=== PATIENT | female | born 1935 | race Caucasian/White ===

== ENCOUNTER 2017-02-11 15:09 | Observation (INO) ==
[2017-02-11 17:26] LABS: Basophils # 0.1 K/mcL (0.0-0.2); Eosinophils # 0.4 K/mcL (0.0-0.6); Eosinophils % 4.8 %; Hematocrit 26.6 % (35.3-44.9); Immature Granulocytes % 0.4 % (0-4); Immature Platelets 3.8 % (1.1-6.1); Lymphocytes # 2.4 K/mcL (0.6-4.6); Mean Corpuscular HGB Conc 30.1 g/dL (31.6-35.5); Mean Corpuscular Hemoglobin 25.4 pg (28.0-33.3); Mean Corpuscular Volume 84.4 fL (83.0-100.0); Mean Platelet Volume 9.8 fL (9.4-12.4); Monocytes # 0.8 K/mcL (0.0-1.3); Monocytes % 11.2 %; Neutrophils # 3.7 K/mcL (1.6-8.9); Platelet Count 317 K/mcL (140-400); Red Blood Count 3.15 M/mcL (3.82-4.97); Segmented Neutrophils % 50.6 %
[2017-02-11 17:38] LABS: Calcium 9.8 mg/dL (8.6-10.8); Potassium 4.4 mEq/L (3.5-4.5)
--- NOTE | 2017-02-11 17:55 | Emergency Department Note ---
START Narrative - START START: I examined this patient and my medical decision-making was reviewed with the MACHINE WASHER/PA/Advanced Practice Nurse/Resident Physician. I agree with the documented findings, disposition and treatment plan as described except to the extent set forth below. I did see the patient and spoke with her and she is alert and pale in appearance and a repeat CBC is pending. The patient does have dyspnea likely related to her anemia. Also does have a history of breast cancer. Workup in progress. [id number]
--- NOTE | 2017-02-11 19:24 | Emergency Department Note ---
Disposition Clinical Impression: Symptomatic anemia Dyspnea Qualifiers: Dyspnea type: shortness of breath Qualified Code(s): R06.02 - Shortness of breath Disposition: Admitted As Inpatient Condition: Fair Referrals: Beverly Watson MD [Primary Care Provider] - Forms: ED Satisfaction Letter Time of Disposition: 20:52 General Adult HPI - General Chief complaint: ED Shortness of Breath/Dyspnea Stated complaint: Sent Per Dr. Echeverria for Blood Transfusion Time Seen by Provider: 02/11/17 16:24 Source: patient Mode of arrival: ambulatory Limitations: no limitations Nursing Notes Reviewed: Yes Vital Signs Reviewed: Yes - History of Present Illness HPI Narrative: Ms. Montes is an 81 year old female that presents for 2 months of difficulty breathing, initially seen by PCP on 01/25/17 for shortness of breath but did not complete lab work until yesterday. Hgb was found to be low at 7.7 (11.0 approx seven months ago), patient notes PCP, Dr. Echeverria suggested she be seen in the ED for symptomatic anemia and possible blood transfusion. Patient notes approx 4 months of dark stools, noting one episode approx a month ago with bright red blood with stool. She denies any iron supplementation. She notes occasional RUQ pain about 1 weekly that is mild and only last a few minutes when it occurs. She denies any abdominal pain currently, denies any pain with bowel movements. Patient does see pulmonology at [facility] and uses a combination of symbicort and combivent inhaler for history of COPD. Pertinent history of bowel perforation >2 years ago from colonscopy that required two surgeries to repair damage. Pt Subjective Complaint: shortness of breath Onset (ago): month(s) Pain Scale: 0 - Related Data Home Medications Medication Instructions Recorded Confirmed Anastrozole [Arimidex] 1 mg PO DAILY 07/20/16 07/20/16 Budesonide/Formoterol 160/4.5 2 puff IH BIDR 07/20/16 07/20/16 [Symbicort 160/4.5] Denosumab [Prolia (For Outpatient 1 SQ [id number] 07/20/16 Infusion)] Docusate [Colace] 100 mg PO BID PRN 07/20/16 07/20/16 Duloxetine HCl [Cymbalta] 60 mg PO DAILY 07/20/16 07/20/16 Fluticasone Propionate Nasal 2 spr NS DAILY PRN 07/20/16 07/20/16 [Flonase] Ipratropium/Albuterol Sulfate 1 puff IH QID 07/20/16 07/20/16 [Combivent Respimat Inhal [place]] Loratadine [Claritin] 10 mg PO DAILY PRN 07/20/16 07/20/16 Metformin HCl [Glucophage Xr] 500 mg PO BID 07/20/16 07/20/16 Pantoprazole Sodium [Protonix] 40 mg PO DAILY 07/20/16 07/20/16 Ranitidine HCl [Heartburn Relief] 150 mg PO HS 07/20/16 07/20/16 Triamterene/HCTZ 37.5/25mg 0.5 each PO DAILY PRN 07/20/16 07/20/16 [Dyazide] Allergies Allergy/AdvReac Type Severity Reaction Status Date / Time alendronate sodium Allergy See Verified 02/11/17 15:32 [From Fosamax] Comments pregabalin [From Lyrica] Allergy Swelling Verified 02/11/17 15:32 of Lip/Tongue/Throat RISSA Inhibitors AdvReac Cough Verified 02/11/17 15:32 acetaminophen [From Percocet] AdvReac Nausea Verified 02/11/17 15:32 clarithromycin [From Biaxin] AdvReac Nausea Verified 02/11/17 15:32 lisinopril [From Prinivil] AdvReac Nausea Verified 02/11/17 15:32 Oxycodone [From Percocet] AdvReac Nausea Verified 02/11/17 15:32 red wine Allergy Anaphylaxis Uncoded 07/20/16 15:26 All systems ED: reviewed and negative except as stated. Constitutional: Denies: fever, chills Eyes: Denies: vision change ENT ED: Denies: hearing loss Cardiovascular: Denies: chest pain Respiratory: Reports: dyspnea Gastrointestinal: Reports: abdominal pain, melena. Denies: nausea, vomiting, diarrhea Genitourinary: Denies: dysuria Musculoskeletal: Denies: back pain Neurological: Denies: headache, weakness, confusion, vertigo Psychiatric: Denies: anxiety Hematological/Lymphatic: Denies: easy bleeding, easy bruising Past Medical History - Past Medical History Attestation: Yes The following information was validated with the patient. Source: patient, old records reviewed Medical history: Reports: arthritis, cancer, COPD, diabetes, GERD, GI bleed, hyperlipidemia, hypertension, migraine, osteoporosis, renal disease, TIA Surgical history: Reports: orthopedic, other, other (colectomy) Psychiatric history: Reports: depression - Social History Smoking Status: Former smoker Smokeless Tobacco Status: No Alcohol use: Reports: none Drug use: Reports: none Physical Exam - General Limitations: no limitations General appearance: alert, in no apparent distress - Head Head exam: atraumatic, normocephalic - Eye Eye exam: Present: normal appearance, EOMI. Absent: scleral icterus - ENT ENT exam: normal exam, mucous membranes moist - Neck Neck exam: Present: normal inspection, full ROM, trachea midline - Chest Chest inspection: Present: normal inspection, symmetric chest wall rise. Absent : tenderness - Respiratory Respiratory exam: Present: normal lung sounds bilaterally. Absent: respiratory distress, wheezes - Cardiovascular Cardiovascular exam: Present: regular rate, normal rhythm, +S1, +S2 - Abdominal Exam Abdominal exam: Present: soft, Non-Tender. Absent: distention, guarding, rebound, rigidity - Rectal Exam Central Processing Technician present during exam: Yes Rectal exam: Present: normal inspection, normal rectal tone. Absent: black stool, bloody stool, mass, tenderness - Extremities Exam Extremities exam: Present: normal inspection, full ROM. Absent: tenderness, pedal edema - Neurological Exam Neurological exam: Present: alert, oriented X3 - Psychiatric Psychiatric exam: Present: normal affect, normal mood - Skin Skin exam: Present: warm, dry, intact Course - Reevaluation(s) Reevaluation #1: The patient is still symptomatic will type and screen and order one unit of packed red blood cells Time: 20:51 - Consultations Consultation #1: Spoke with Dr. Vazquez, hospitalist who agreed to admission. Time: 20:23 Consultation #2: Spoke to hospitalist again after occult blood found to be negative. Patient seen by Dr. Morfin in past, he was paged and stated he would not be doing endoscopy and if needed that would go to surgery over the weekend. Time: 20:47 Vital Signs Temperature 99.5 F 02/11/17 15:28 Pulse Rate 92 02/11/17 15:28 Respiratory Rate 22 02/11/17 15:28 Blood Pressure 131/74 02/11/17 15:28 O2 Sat by Pulse Oximetry 98 02/11/17 15:28 Temperature 99.5 F 02/11/17 15:28 Pulse Rate 77 02/11/17 20:15 Respiratory Rate 20 02/11/17 20:15 Blood Pressure 135/79 02/11/17 20:15 O2 Sat by Pulse Oximetry 96 02/11/17 20:15 Oxygen Delivery Oxygen Delivery Room Air Medical Decision Making - MDM Narrative Medical decision making narrative: Patient presents with symptomatic anemia for the past 2 months noted hemoglobin at 7.7, which appears to be lower than previous 11.0. Concern for G.I. bleeding with history of dark stools x 4 months. No history of GI bleed, though history of GERD on daily PPI therapy. Plan to discuss case with hospitalist to ensure transfusion and observation. - Medical Records Medical records reviewed: Yes I reviewed the patient's medical records. - Lab Data Lab results reviewed: Yes I reviewed the patient's lab results. Result diagrams: 02/11/17 17:19 02/11/17 17:19 Lab Results 02/11/17 02/11/17 02/11/17 Range/Units 16:47 17:19 17:19 WBC 7.4 (4.3-11.1) K/mcL RBC 3.15 L (3.82-4.97) M/mcL Hgb 8.0 L (11.5-15.4) g/dL Hct 26.6 L (35.3-44.9) % MCV 84.4 (83.0-100.0) fL MCH 25.4 L (28.0-33.3) pg MCHC 30.1 L (31.6-35.5) g/dL RDW 15.0 H (11.5-14.5) % Plt Count 317 (140-400) K/mcL MPV 9.8 (9.4-12.4) fL Immature Gran % 0.4 (0-4) % Seg Neutrophils % 50.6 % Lymphocytes % 32.0 % Monocytes % 11.2 % Eosinophils % 4.8 % Basophils % 1.0 % Neutrophils # 3.7 (1.6-8.9) K/mcL Lymphocytes # 2.4 (0.6-4.6) K/mcL Monocytes # 0.8 (0.0-1.3) K/mcL Eosinophils # 0.4 (0.0-0.6) K/mcL Basophils # 0.1 (0.0-0.2) K/mcL Immature Plt Fraction 3.8 (1.1-6.1) % Sodium 141 (136-145) mEq/L Potassium 4.4 (3.5-4.5) mEq/L Chloride 107 (98-109) mEq/L Carbon Dioxide 20 (19-29) mEq/L BUN 35 H (7-20) mg/dL Creatinine 1.38 H (0.57-1.11) mg/dL Est GFR ( Amer) 45 L (> 60) Est GFR (Non-Af Amer) 37 L (> 60) BUN/Creatinine Ratio 25 (6-26) Glucose 90 (70-99) mg/dL Calculated Osmolality 300 (280-300) Calcium 9.8 (8.6-10.8) mg/dL Troponin I 0.00 (0-0.03) ng/mL Stool Occult Blood (Negative) 02/11/17 Range/Units 19:11 WBC (4.3-11.1) K/mcL RBC (3.82-4.97) M/mcL Hgb (11.5-15.4) g/dL Hct (35.3-44.9) % MCV (83.0-100.0) fL MCH (28.0-33.3) pg MCHC (31.6-35.5) g/dL RDW (11.5-14.5) % Plt Count (140-400) K/mcL MPV (9.4-12.4) fL Immature Gran % (0-4) % Seg Neutrophils % % Lymphocytes % % Monocytes % % Eosinophils % % Basophils % % Neutrophils # (1.6-8.9) K/mcL Lymphocytes # (0.6-4.6) K/mcL Monocytes # (0.0-1.3) K/mcL Eosinophils # (0.0-0.6) K/mcL Basophils # (0.0-0.2) K/mcL Immature Plt Fraction (1.1-6.1) % Sodium (136-145) mEq/L Potassium (3.5-4.5) mEq/L Chloride (98-109) mEq/L Carbon Dioxide (19-29) mEq/L BUN (7-20) mg/dL Creatinine (0.57-1.11) mg/dL Est GFR ( Amer) (> 60) Est GFR (Non-Af Amer) (> 60) BUN/Creatinine Ratio (6-26) Glucose (70-99) mg/dL Calculated Osmolality (280-300) Calcium (8.6-10.8) mg/dL Troponin I (0-0.03) ng/mL Stool Occult Blood Negative (Negative)
[2017-02-11] MEDS ORDERED: Naloxone 0.4 MG/ML INJ IVP PRN (21:41)
[2017-02-11] MEDS ORDERED: Loratadine 10 MG TABLET PO PRN (21:46)
[2017-02-11] MEDS ORDERED: Fluticasone Propionate Nasal 50 MCG/SPRAY BOTTLE NS PRN (22:20)
--- NOTE | 2017-02-11 22:30 | Internal Med History&Physical ---
Date of Encounter: 02/11/17 Time of Encounter: 22:24 Assessment and Plan (1) Symptomatic anemia Current visit: Yes Status: Acute Patient with shortness of breath, Hgb 7.7 and 8.0 on recheck. Patient reports "dark stools". Fecal occult blood negative. She does report significant acid reflux, but denies any hemetamasis, vomiting. She has a history of bowel perforation during colonoscopy requiring surgical repair x 2. Iron studies, B12 and folate. Will transfuse 2 units of blood. check H/H Q 6 hours. Recheck CBC in the morning. Consult to Surgery covering endoscopy for possible endoscopy. (2) COPD (chronic obstructive pulmonary disease) Current visit: Yes Status: Acute Patient has COPD and follows with [facility] pulmonology. Continue home doses of albuterol, atrovent, symbicort and spiriva. CPAP overnight. Qualifiers: COPD type: unspecified COPD Qualified Code(s): J44.9 - Chronic obstructive pulmonary disease, unspecified (3) Dyspnea Current visit: Yes Status: Acute Patient reports shortness of breath for the last 2 months. She does have COPD, but does not report increased coughing or sputum production. Hgb found to be 7.7, and anemia thought to be source of dyspnea. Will transfuse and assess for improvement in her symptoms. Qualifiers: Dyspnea type: shortness of breath Qualified Code(s): R06.02 - Shortness of breath (4) Type 2 diabetes mellitus Current visit: Yes Status: Acute diabetic diet hold home metformin check blood sugars ACHS sliding scale insulin ACHS hypoglycemic protocol. Qualifiers: Diabetes mellitus complication status: without complication Diabetes mellitus creative guru insulin use: without creative guru use Qualified Code(s): E11.9 - Type 2 diabetes mellitus without complications (5) DVT prophylaxis Current visit: Yes Status: Acute ambulate with assistance anti-embolic stockings pharmacologic prophylaxis is contraindicated in patient with possible bleed. Internal Medicine - H&P: HPI Chief complaint: shortness of breath, low blood count Admitted From: Emergency Dept Plans for Post Hospital Care: Home History of present illness: Ms. Montes is a 81 year old female with hypertension, hyperlipidemia, type 2 diabetes, COPD, chronic kidney disease, history of TIA, history of breast cancer , history of bowel perforation status post repair who was sent to the emergency department today by her primary care physician after lab results revealed her hemoglobin was 7.7. Patient had been complaining of shortness of breath for the last 2 months, PCP ordered labs as part of the workup. Patient reports her shortness of breath continues, worse with activity. She reports she has had dark stools, but denies sticky stools, magalis blood, and she says that they are not black just dark. She denies any other sources of bleeding recently, denies any bloody emesis. She reports acid reflux, denies any lightheadedness, palpitations, abdominal pain, diarrhea. She reports she received 2 units of blood last fall, however I cannot find any record of that in the outpatient system. Evaluation in the emergency department included hemoglobin of 8.0. Fecal occult blood was negative. Her creatinine of 1.38, consistent with her baseline CKD. On exam, patient is alert and oriented, in no acute distress. Lungs are clear bilaterally to auscultation, heart has regular rate and rhythm. Past Med Surg Social Fam HX - Past Medical History Medical history: arthritis, cancer, COPD, diabetes, GERD, GI bleed, hyperlipidemia, hypertension, migraine, osteoporosis, renal disease, TIA Psychiatric history: depression - Past Surgical History Surgical History: breast surgery, cancer surgery, colectomy (bowel repair x 2 after bowel perforation during colonoscopy), knee replacement, orthopedic, other , other (colectomy) - Social History Smoking Status: Former smoker Smokeless Tobacco Status: No Alcohol use: none Drug use: none - Family History Mother Adopted: No Family Member Ethnicity: Non- Living Status: Hx Family Cardiac Disorders: No Hx Family Respiratory Disorders: No Hx Family Cancer: No Hx Family GI Disorders: No Hx Family Endocrine Disorder: Yes (DM) Hx Family Neuromuscular Disorders: No Hx Family Neurologic Disorders: No Hx Family HEENT Disorders: No Hx Family Autoimmune Disorders: No Father Living Status: Age at : 65 Cause of : alcoholism Internal Medicine - H&P: Meds Anastrozole [Arimidex] 1 mg PO DAILY 07/20/16 [History] Budesonide/Formoterol 160/4.5 [Symbicort 160/4.5] 2 puff IH BIDR 07/20/16 [ History] Denosumab [Prolia (For Outpatient Infusion)] 60 mg SQ [id number] 07/20/16 [History ] Docusate [Colace] 100 mg PO BID PRN 07/20/16 [History] Duloxetine HCl [Cymbalta] 60 mg PO DAILY 07/20/16 [History] Fluticasone Propionate Nasal [Flonase] 2 spr NS DAILY PRN 07/20/16 [History] Ipratropium/Albuterol Sulfate [Combivent Respimat Inhal [place]] 1 puff IH QID [History] Loratadine [Claritin] 10 mg PO DAILY PRN 07/20/16 [History] Metformin HCl [Glucophage Xr] 750 mg PO TID 07/20/16 [History] Pantoprazole Sodium [Protonix] 40 mg PO DAILY 07/20/16 [History] Ranitidine HCl [Heartburn Relief] 150 mg PO HS 07/20/16 [History] Triamterene/HCTZ 37.5/25mg [Dyazide] 0.5 each PO DAILY PRN 07/20/16 [History] Albuterol Sulfate [Proair Hfa] 2 puff IH Q4H PRN 02/11/17 [History] Rosuvastatin [Crestor] 40 mg PO HS 02/11/17 [History] Tiotropium [place] Burn [Spiriva Respimat] 1 puff IH DAILY 02/11/17 [History] Allergies alendronate sodium [From Fosamax] Allergy (Verified 02/11/17 15:32) See Comments pregabalin [From Lyrica] Allergy (Verified 02/11/17 15:32) Swelling of Lip/Tongue/Throat RISSA Inhibitors Adverse Reaction (Verified 02/11/17 15:32) Cough acetaminophen [From Percocet] Adverse Reaction (Verified 02/11/17 15:32) Nausea clarithromycin [From Biaxin] Adverse Reaction (Verified 02/11/17 15:32) Nausea lisinopril [From Prinivil] Adverse Reaction (Verified 02/11/17 15:32) Nausea Oxycodone [From Percocet] Adverse Reaction (Verified 02/11/17 15:32) Nausea red wine Allergy (Uncoded 07/20/16 15:26) Anaphylaxis All Systems PM: A 10-system review of systems was performed and is negative for pertinent findings except as documented above in the HPI. - Constitutional Constitutional: no chills, no fever(s), no night sweats - EENT Eyes: no change in vision, no discharge, no pain, no photophobia Ears: no ear discharge, no ear pain, no tinnitus Nose, mouth and throat: no dysphagia, no nasal discharge, no neck pain, no sore throat - Cardiovascular Cardiovascular ROS IM: dyspnea, dyspnea on exertion, no chest pain, no diaphoresis, no lightheadedness, no palpitations, no syncope - Respiratory Respiratory: dyspnea, dyspnea on exertion, no cough, no wheezing, no excessive phlegm production - Gastrointestinal Gastrointestinal: no abdominal pain, no diarrhea, no hematemesis, no hematochezia, no melena, no nausea, no vomiting Additional comments: "dark stools" - Genitourinary Genitourinary: no change in urinary stream, no dysuria, no flank pain, no hematuria - Musculoskeletal Musculoskeletal ROS IM: no numbness, no tingling - Integumentary Integumentary IM: no rash, no unusual bruising - Neurological Neurological ROS: no confusion, no convulsions, no focal weakness, no numbness, no tingling, no tremor(s) - Hematologic/Lymphatic Hematologic/Lymphatic: no easy bruising - Constitutional Vitals: Temp Pulse Resp BP Pulse Ox 99.5 F 96 20 123/86 97 02/11/17 15:28 02/11/17 21:00 02/11/17 21:26 02/11/17 21:26 02/11/17 21:00 General appearance: Present: A&O X 3, pleasant, no acute distress - Head Head exam: Present: atraumatic, normocephalic - Eye Eye exam: Present: PERRL, conjuntiva pink, sclera anicteric Pupils: Present: PERRL - Neck Neck exam general surgery: Present: supple, trachea midline. Absent: lymphadenopathy - Respiratory Respiratory exam: Present: CTAB. Absent: accessory muscle use, rales, rhonchi, wheezes - Cardiovascular Cardiovascular exam: Present: RRR, +S1, +S2. Absent: diastolic murmur, gallop, rubs, systolic murmur - GI/Abdominal GI/Abdominal exam: Present: normal bowel sounds, soft, no peritoneal signs. Absent: distended, tenderness - Extremities Exam Extremities exam: Present: warm, radial pulses palpable and symetrical. Absent : calf tenderness, cyanotic, pedal edema - Neurological Exam Neurological exam: Present: CN II-XII intact, oriented X3, no focal deficits. Absent: facial droop, speech deficit - Skin Skin exam: Present: dry, intact Internal Med - H&P Results - Labs CBC & Chem 7: 02/11/17 17:19 02/11/17 17:19 Labs: All Lab Results (24 Hours) 02/11/17 02/11/17 02/11/17 Range/Units 16:47 17:19 17:19 WBC 7.4 (4.3-11.1) K/mcL RBC 3.15 L (3.82-4.97) M/mcL Hgb 8.0 L (11.5-15.4) g/dL Hct 26.6 L (35.3-44.9) % MCV 84.4 (83.0-100.0) fL MCH 25.4 L (28.0-33.3) pg MCHC 30.1 L (31.6-35.5) g/dL RDW 15.0 H (11.5-14.5) % Plt Count 317 (140-400) K/mcL MPV 9.8 (9.4-12.4) fL Immature Gran % 0.4 (0-4) % Seg Neutrophils % 50.6 % Lymphocytes % 32.0 % Monocytes % 11.2 % Eosinophils % 4.8 % Basophils % 1.0 % Neutrophils # 3.7 (1.6-8.9) K/mcL Lymphocytes # 2.4 (0.6-4.6) K/mcL Monocytes # 0.8 (0.0-1.3) K/mcL Eosinophils # 0.4 (0.0-0.6) K/mcL Basophils # 0.1 (0.0-0.2) K/mcL Immature Plt Fraction 3.8 (1.1-6.1) % Sodium 141 (136-145) mEq/L Potassium 4.4 (3.5-4.5) mEq/L Chloride 107 (98-109) mEq/L Carbon Dioxide 20 (19-29) mEq/L BUN 35 H (7-20) mg/dL Creatinine 1.38 H (0.57-1.11) mg/dL Est GFR ( Amer) 45 L (> 60) Est GFR (Non-Af Amer) 37 L (> 60) BUN/Creatinine Ratio 25 (6-26) Glucose 90 (70-99) mg/dL Calculated Osmolality 300 (280-300) Calcium 9.8 (8.6-10.8) mg/dL Troponin I 0.00 (0-0.03) ng/mL Stool Occult Blood (Negative) Blood Type Antibody Screen Crossmatch 02/11/17 02/11/17 Range/Units 19:11 21:07 WBC (4.3-11.1) K/mcL RBC (3.82-4.97) M/mcL Hgb (11.5-15.4) g/dL Hct (35.3-44.9) % MCV (83.0-100.0) fL MCH (28.0-33.3) pg MCHC (31.6-35.5) g/dL RDW (11.5-14.5) % Plt Count (140-400) K/mcL MPV (9.4-12.4) fL Immature Gran % (0-4) % Seg Neutrophils % % Lymphocytes % % Monocytes % % Eosinophils % % Basophils % % Neutrophils # (1.6-8.9) K/mcL Lymphocytes # (0.6-4.6) K/mcL Monocytes # (0.0-1.3) K/mcL Eosinophils # (0.0-0.6) K/mcL Basophils # (0.0-0.2) K/mcL Immature Plt Fraction (1.1-6.1) % Sodium (136-145) mEq/L Potassium (3.5-4.5) mEq/L Chloride (98-109) mEq/L Carbon Dioxide (19-29) mEq/L BUN (7-20) mg/dL Creatinine (0.57-1.11) mg/dL Est GFR ( Amer) (> 60) Est GFR (Non-Af Amer) (> 60) BUN/Creatinine Ratio (6-26) Glucose (70-99) mg/dL Calculated Osmolality (280-300) Calcium (8.6-10.8) mg/dL Troponin I (0-0.03) ng/mL Stool Occult Blood Negative (Negative) Blood Type A POSITIVE Antibody Screen NEGATIVE Crossmatch See Detail
[2017-02-11] MEDS ORDERED: D5% in Water 1,000 ML IVC PRN (22:37)
[2017-02-11] MEDS ORDERED: Dextrose Gel 15 GM PO PRN ×2 (22:37)
[2017-02-11] MEDS ORDERED: *HR* Dextrose 50 % in Water (Syg) 50 ML SYRINGE IVP PRN (22:37)
[2017-02-11] MEDS: Budesonide/Formoterol 160/4.5 MDI IH SCH (22:38)
[2017-02-11] MEDS: Ipratropium 1 PUFF INHALER IH SCH (22:39)
[2017-02-11 23:15] LABS: % Iron Saturation 5 % (15-50); Iron 25 mcg/dL (50-170); Transferrin 337 mg/dL (180-382)
[2017-02-11] MEDS: Insulin LISPRO 300 UNITS/3 ML VIAL SQ SCH (23:26)
[2017-02-12 00:10] LABS: Folate 14.3 ng/mL (7.0-31.4)
[2017-02-12] MEDS ORDERED: 0.9 % Sodium Chloride 250 ML ONE ×2 (00:23→03:14)
[2017-02-12 01:11] LABS: Basophils # 0.1 K/mcL (0.0-0.2); Basophils % 0.7 %; Eosinophils # 0.3 K/mcL (0.0-0.6); Eosinophils % 3.7 %; Hematocrit 25.2 % (35.3-44.9); Hemoglobin 7.5 g/dL (11.5-15.4); Immature Granulocytes % 0.4 % (0-4); Lymphocytes # 2.9 K/mcL (0.6-4.6); Lymphocytes % 33.8 %; Mean Corpuscular HGB Conc 29.8 g/dL (31.6-35.5); Mean Corpuscular Hemoglobin 25.3 pg (28.0-33.3); Mean Corpuscular Volume 85.1 fL (83.0-100.0); Mean Platelet Volume 9.3 fL (9.4-12.4); Monocytes % 11.8 %; Neutrophils # 4.2 K/mcL (1.6-8.9); Platelet Count 357 K/mcL (140-400); Red Blood Count 2.96 M/mcL (3.82-4.97); Red Cell Distribution Width 14.8 % (11.5-14.5); Segmented Neutrophils % 49.6 %
[2017-02-12 01:25] LABS: Calcium 9.5 mg/dL (8.6-10.8); Potassium 4.7 mEq/L (3.5-4.5)
[2017-02-12] MEDS: Ipratropium 1 PUFF INHALER IH SCH ×4 (03:42→22:35)
[2017-02-12 06:11] LABS: Hematocrit 28.5 % (35.3-44.9)
[2017-02-12 06:12] LABS: Hemoglobin 9.1 g/dL (11.5-15.4)
[2017-02-12] MEDS: Pantoprazole 40 MG VIAL IVP SCH ×2 (06:42→17:52)
[2017-02-12] MEDS: Insulin LISPRO 300 UNITS/3 ML VIAL SQ SCH ×4 (08:44→20:39)
[2017-02-12] MEDS ORDERED: NON-FORMULARY MEDICATION 1 EACH EACH (Ipratropium/Albuterol Sulfate [Combivent Respimat In IH SCH (09:00)
[2017-02-12] MEDS: Budesonide/Formoterol 160/4.5 MDI IH SCH ×2 (11:52→20:47)
[2017-02-12] MEDS: Tiotropium 18 MCG inhalation IH SCH (12:01)
[2017-02-12 12:35] LABS: Hematocrit 30.7 % (35.3-44.9); Hemoglobin 9.6 g/dL (11.5-15.4)
--- NOTE | 2017-02-12 12:40 | General Surgery Consult Note ---
Date of Encounter: 02/12/17 Time of Encounter: 09:00 Assessment and Plan (1) Symptomatic anemia Current Visit: Yes Status: Acute will plan EGD with iv medication, risks and benefits discussed with patient and she wishes to proceed will trend Hb (2) COPD (chronic obstructive pulmonary disease) Current Visit: Yes Status: Acute management per hospitalist Qualifiers: COPD type: unspecified COPD Qualified Code(s): J44.9 - Chronic obstructive pulmonary disease, unspecified (3) Type 2 diabetes mellitus Current Visit: Yes Status: Acute management per hospitalist Qualifiers: Diabetes mellitus complication status: without complication Diabetes mellitus buttermaker continuous churn insulin use: without nursing home use Qualified Code(s): E11.9 - Type 2 diabetes mellitus without complications (4) DVT prophylaxis Current Visit: Yes Status: Acute ambulation and EPCDs History of Present Illness Consult date: 02/12/17 Reason for consult: endoscopy History of present illness: Patient is an 81 yr old female who presented to hospital with anemia. She states she talked to her PCP and complained of lethargy and SOB for many months. She had lab work done showing a low Hb and was told to come to the hospital. She has received 2 units PRBC and she states its too early to tell if its making her feel better. She denies chest pain, palpitations or dizziness. She complains of heartburn and reflux symptoms for years. She states she takes two medications for that - ranitidine and something else. It does help her symptoms a little but she still has breakthrough reflux that wakes her at night. She sleeps with the head of her bed elevated 6 inches. She doesnt eat after 6 pm to try to help alleviate symptoms. When she has reflux the pain seems to radiate through her chest. She has been passing dark stools for a few months now but she is also drinking peptobismol to help with her symptoms and has for months. She denies epigastric pain or nausea. Past Med Surg Social Fam HX - Past Medical History Source: patient Medical history: arthritis, cancer, COPD, diabetes, GERD, GI bleed, hyperlipidemia, hypertension, migraine, osteoporosis, renal disease, TIA Psychiatric history: depression - Past Surgical History Surgical History: breast surgery, cancer surgery, colectomy, knee replacement, orthopedic, other, other - Social History Smoking Status: Former smoker Smokeless Tobacco Status: No Alcohol use: none Drug use: none - Family History Father Living Status: Age at : 65 Cause of : alcoholism Hx Family Respiratory Disorders: Yes Hx Family Cancer: No Hx Family Psychosocial Disorders: Yes Hx Family Medical Disorders: Yes Mother Adopted: No Family Member Ethnicity: Non- Living Status: Hx Family Cardiac Disorders: No Hx Family Respiratory Disorders: No Hx Family Cancer: No Hx Family GI Disorders: No Hx Family Endocrine Disorder: Yes (DM) Hx Family Neuromuscular Disorders: No Hx Family Neurologic Disorders: No Hx Family HEENT Disorders: No Hx Family Autoimmune Disorders: No Medications and Allergies Anastrozole [Arimidex] 1 mg PO DAILY 07/20/16 [History] Budesonide/Formoterol 160/4.5 [Symbicort 160/4.5] 2 puff IH BIDR 07/20/16 [ History] Denosumab [Prolia (For Outpatient Infusion)] 60 mg SQ [id number] 07/20/16 [History ] Docusate [Colace] 100 mg PO BID PRN 07/20/16 [History] Duloxetine HCl [Cymbalta] 60 mg PO DAILY 07/20/16 [History] Fluticasone Propionate Nasal [Flonase] 2 spr NS DAILY PRN 07/20/16 [History] Ipratropium/Albuterol Sulfate [Combivent Respimat Inhal [place]] 1 puff IH QID [History] Loratadine [Claritin] 10 mg PO DAILY PRN 07/20/16 [History] Metformin HCl [Glucophage Xr] 750 mg PO TID 07/20/16 [History] Pantoprazole Sodium [Protonix] 40 mg PO DAILY 07/20/16 [History] Ranitidine HCl [Heartburn Relief] 150 mg PO HS 07/20/16 [History] Triamterene/HCTZ 37.5/25mg [Dyazide] 0.5 each PO DAILY PRN 07/20/16 [History] Albuterol Sulfate [Proair Hfa] 2 puff IH Q4H PRN 02/11/17 [History] Rosuvastatin [Crestor] 40 mg PO HS 02/11/17 [History] Tiotropium [place] [Spiriva Respimat] 1 puff IH DAILY 02/11/17 [History] Allergies alendronate sodium [From Fosamax] Allergy (Verified 02/11/17 15:32) See Comments pregabalin [From Lyrica] Allergy (Verified 02/11/17 15:32) Swelling of Lip/Tongue/Throat RISSA Inhibitors Adverse Reaction (Verified 02/11/17 15:32) Cough acetaminophen [From Percocet] Adverse Reaction (Verified 02/11/17 15:32) Nausea clarithromycin [From Biaxin] Adverse Reaction (Verified 02/11/17 15:32) Nausea lisinopril [From Prinivil] Adverse Reaction (Verified 02/11/17 15:32) Nausea Oxycodone [From Percocet] Adverse Reaction (Verified 02/11/17 15:32) Nausea red wine Allergy (Uncoded 07/20/16 15:26) Anaphylaxis Review of Systems All systems PM: reviewed and no additional remarkable complaints except as stated All systems PM: A 10-system review of systems was performed and is negative for pertinent findings except as documented above in the HPI. General Surgery Exam Initial Vital Signs Temp Pulse Resp BP Pulse Ox 99.5 F 92 22 131/74 98 02/11/17 15:28 02/11/17 15:28 02/11/17 15:28 02/11/17 15:28 02/11/17 15:28 - General physical appearance well developed, well nourished, no distress, no pain - Eyes PERRL, normal ocular movement - ENT normal mucosa, atraumatic, normocephalic - Neck trachea midline - Respiratory normal expansion, clear to auscultation - Cardiovascular Cardiovascular exam: Present: RRR - Abdomen Abdomen general surgery: Present: bowel sounds present, soft, non tender. Absent: distended - Integumentary Integumentary general surgery: Present: warm and dry, no abnormal pigmentation. Absent: diaphoresis - Neurologic Present: CN 2-12 grossly intact - Musculoskeletal Present: normal gait, normal posture - Psychiatric Psychiatric general surgery: Present: A&Ox3, speech is normal Exam Initial Vital Signs Temp Pulse Resp BP Pulse Ox 99.5 F 92 22 131/74 98 02/11/17 15:28 02/11/17 15:28 02/11/17 15:28 02/11/17 15:28 02/11/17 15:28 Results - Labs 02/12/17 05:58 02/12/17 00:40 Short CBC 02/12/17 02/12/17 02/12/17 Range/Units 11:47 05:58 00:40 WBC 8.5 (4.3-11.1) K/mcL Hgb 9.6 L 9.1 L D 7.5 L (11.5-15.4) g/dL Hct 30.7 L 28.5 L 25.2 L (35.3-44.9) % Plt Count 357 (140-400) K/mcL Neutrophils # 4.2 (1.6-8.9) K/mcL 02/11/17 Range/Units 17:19 WBC 7.4 (4.3-11.1) K/mcL Hgb 8.0 L (11.5-15.4) g/dL Hct 26.6 L (35.3-44.9) % Plt Count 317 (140-400) K/mcL Neutrophils # 3.7 (1.6-8.9) K/mcL BMP 02/12/17 02/11/17 Range/Units 00:40 17:19 Sodium 141 141 (136-145) mEq/L Potassium 4.7 H 4.4 (3.5-4.5) mEq/L Chloride 107 107 (98-109) mEq/L Carbon Dioxide 19 20 (19-29) mEq/L BUN 36 H 35 H (7-20) mg/dL Creatinine 1.53 H 1.38 H (0.57-1.11) mg/dL Glucose 209 H 90 (70-99) mg/dL Calcium 9.5 9.8 (8.6-10.8) mg/dL Cardiac Enzymes 02/11/17 Range/Units 16:47 Troponin I 0.00 (0-0.03) ng/mL Vital Signs Temp Pulse Resp BP Pulse Ox 02/12/17 11:52 16 129/76 97 02/12/17 10:07 98.2 F 78 16 129/76 98 02/12/17 08:10 98 02/12/17 06:23 97.8 F 73 16 126/73 98 02/12/17 03:43 97.5 F L 77 18 127/77 96 02/12/17 03:28 98.3 F 78 18 135/78 96 02/12/17 03:26 97.7 F 81 14 120/76 95 02/12/17 00:50 97.9 F 79 12 132/76 96 02/12/17 00:45 97.7 F 81 14 120/76 95 02/12/17 00:27 98.2 F 82 20 112/63 98 02/11/17 22:52 98.4 F 88 16 126/83 98 02/11/17 22:38 16 97 02/11/17 21:26 20 123/86 02/11/17 21:00 96 20 97 02/11/17 20:45 93 20 154/98 97 02/11/17 20:30 87 20 147/73 94 02/11/17 20:15 77 20 135/79 96 02/11/17 20:00 78 20 133/75 95 02/11/17 19:46 95 02/11/17 19:45 81 20 119/73 95 02/11/17 19:30 87 20 143/76 95 02/11/17 19:15 82 20 144/86 95 02/11/17 19:00 77 20 127/75 95 02/11/17 15:28 99.5 F 92 22 131/74 98 Intake and Output 02/11/17 02/12/17 02/12/17 23:59 07:59 15:59 Intake Total 600 / 600 0 / 0 Output Total 0 / 0 Balance 600 / 600 0 / 0 Intake: Oral 0 / 0 Blood Product 600 / 600 Rbcs Leuko Poor As-1 300 / 300 Unit [id number] Rbcs Leuko Poor As-1 300 / 300 Unit [id number] Output: Urine 0 / 0 Other: # Voids 1 Blood Glucose* 198 101 108 Consult Discharge Plan - Plan Referrals: Beverly Watson MD [Primary Care Provider] -
[2017-02-12] MEDS ORDERED: *HR* Midazolam HCl 5 MG/5 ML VIAL IVP ONE (15:57)
[2017-02-12] MEDS ORDERED: *HR* FentaNYL (PF) 100 MCG/2 ML VIAL ONE (15:58)
[2017-02-12] MEDS ORDERED: *HR* Promethazine 25 MG/ML VIAL ONE (15:59)
[2017-02-12] MEDS ORDERED: Acetaminophen 325 MG TABLET PO PRN (16:32)
[2017-02-12] MEDS ORDERED: Tetracaine/Benzocaine/Butamben 200MG/SPRAY (100SPY/BOT) MM ONE (16:33)
[2017-02-12] MEDS ORDERED: *HR* FentaNYL (PF) 100 MCG/2 ML VIAL IVP PRN (16:33)
[2017-02-12] MEDS ORDERED: Simethicone 40 MG/0.6 ML MLS IR ONE (16:33)
[2017-02-12] MEDS ORDERED: *HR* Midazolam HCl 5 MG/5 ML VIAL IVP PRN (16:33)
[2017-02-12] MEDS ORDERED: 0.9 % Sodium Chloride 1,000 ML IVC SCH (16:45)
[2017-02-12] MEDS: Sucralfate 1 GM TABLET PO SCH ×2 (18:25→20:39)
--- NOTE | 2017-02-12 18:27 | Internal Med Progress Note ---
Date of Encounter: 02/12/17 Time of Encounter: 10:00 - Assessment and plan (1) Iron deficiency anemia Current Visit: Yes Status: Acute Assessment and plan: Iron studies reveal low iron and percent saturation consistent with iron deficiency anemia. I suspect occult GI bleeding. The patient is nothing by mouth. I discussed the patient's case with surgeon and will proceed with upper endoscopy to evaluate for esophageal pathology versus gastric ulcer, gastric Cancer or bleeding duodenal ulcer. Qualifiers: Iron deficiency anemia type: chronic blood loss Qualified Code(s): D50.0 - Iron deficiency anemia secondary to blood loss (chronic) (2) COPD (chronic obstructive pulmonary disease) Current Visit: Yes Status: Acute Assessment and plan: No evidence of exacerbation. We will use inhaled bronchodilators. Qualifiers: COPD type: unspecified COPD Qualified Code(s): J44.9 - Chronic obstructive pulmonary disease, unspecified (3) Type 2 diabetes mellitus Current Visit: Yes Status: Acute Assessment and plan: Stop oral antidiabetic medication. Start insulin sliding scale. Qualifiers: Diabetes mellitus complication status: without complication Diabetes mellitus group home insulin use: without group home use Qualified Code(s): E11.9 - Type 2 diabetes mellitus without complications (4) DVT prophylaxis Current Visit: Yes Status: Acute - Subjective Interval history: Patient reports that she has had generalized weakness and fatigue for the last 2 weeks. She was found to have a hemoglobin of 7.5 in the office and was sent to the hospital. She was given 2 units PRBC transfusion. Currently her weakness has improved, she denies chest pain shortness of breath but has not been exerting herself. - Constitutional Vitals: Temp Pulse Resp BP Pulse Ox 98.5 F 79 18 167/81 100 02/12/17 16:06 02/12/17 16:47 02/12/17 16:47 02/12/17 16:47 02/12/17 16:47 General appearance: Present: A&O X 3, pleasant, no acute distress - Eye Eye exam: Present: PERRL, conjuntiva pink, sclera anicteric Pupils: Present: PERRL - Respiratory Respiratory exam: Present: CTAB. Absent: accessory muscle use, rales, rhonchi, wheezes - Cardiovascular Cardiovascular exam: Present: RRR, +S1, +S2. Absent: diastolic murmur, gallop, rubs, systolic murmur - GI/Abdominal GI/Abdominal exam: Present: normal bowel sounds, soft, no peritoneal signs. Absent: distended, tenderness - Extremities Exam Extremities exam: Present: warm, radial pulses palpable and symetrical. Absent : calf tenderness, cyanotic, pedal edema - Neurological Exam Neurological exam: Present: CN II-XII intact, oriented X3, no focal deficits. Absent: pronater drift, facial droop, speech deficit Internal Medicine: Result - Labs CBC & Chem 7: 02/12/17 11:47 02/12/17 00:40 Labs: Short CBC 02/12/17 02/12/17 02/12/17 Range/Units 00:40 05:58 11:47 WBC 8.5 (4.3-11.1) K/mcL Hgb 7.5 L 9.1 L D 9.6 L (11.5-15.4) g/dL Hct 25.2 L 28.5 L 30.7 L (35.3-44.9) % Plt Count 357 (140-400) K/mcL Neutrophils # 4.2 (1.6-8.9) K/mcL BMP 02/12/17 00:40 Sodium 141 Potassium 4.7 H Chloride 107 Carbon Dioxide 19 BUN 36 H Creatinine 1.53 H Glucose 209 H Calcium 9.5 Consult Discharge Plan - Plan Referrals: Beverly Watson MD [Primary Care Provider] -
[2017-02-13] MEDS: Ipratropium 1 PUFF INHALER IH SCH ×2 (04:02→10:56)
[2017-02-13] MEDS: Pantoprazole 40 MG VIAL IVP SCH (05:45)
[2017-02-13] MEDS: Insulin LISPRO 300 UNITS/3 ML VIAL SQ SCH ×2 (08:00→12:04)
[2017-02-13] MEDS: Sucralfate 1 GM TABLET PO SCH ×2 (08:03→12:04)
--- NOTE | 2017-02-13 09:58 | General Surgery Progress Note ---
Date of Encounter: 02/13/17 Time of Encounter: 09:56 - Assessment and Plan (1) Hiatal hernia Current Visit: Yes Status: Chronic Recommend outpatient manometry study- patient will be set up for testing by the surgical office F/U with either Dr. Colorado to discuss Truong Fundoplication PPI therapy Carafate QID Surgery will sign off. Thank you for allowing us to partcipate in the care of this patient. Please call with any further questions/concerns. (2) GERD (gastroesophageal reflux disease) Current Visit: Yes Status: Chronic F/U with either Dr. Colorado to discuss Truong Fundoplication PPI therapy Carafate QID Qualifiers: Esophagitis presence: with esophagitis Qualified Code(s): K21.0 - Gastro- esophageal reflux disease with esophagitis (3) Symptomatic anemia Current Visit: Yes Status: Acute Hgb stable at 9.6 total of 2 units PRBC transfused Repeat am labs (4) COPD (chronic obstructive pulmonary disease) Current Visit: Yes Status: Chronic Qualifiers: COPD type: unspecified COPD Qualified Code(s): J44.9 - Chronic obstructive pulmonary disease, unspecified (5) Type 2 diabetes mellitus Current Visit: Yes Status: Chronic Blood sugars stable Management per medicine service Qualifiers: Diabetes mellitus complication status: without complication Diabetes mellitus intermediate project manager insulin use: without intermediate project manager use Qualified Code(s): E11.9 - Type 2 diabetes mellitus without complications (6) Chronic kidney disease (CKD) Current Visit: Yes Status: Acute Stable- levels at baseline Avoid nephrotoxic medications Management per medicine service Qualifiers: Chronic kidney disease stage: stage 3 (moderate) Qualified Code(s): N18.3 - Chronic kidney disease, stage 3 (moderate) Subjective Patient reports: no new complaints, feels better, tolerating a regular diet, afebrile Objective Vital Signs - Last 8 Hours Temp Pulse Resp BP Pulse Ox 02/13/17 07:16 98.1 F 97 16 129/86 95 02/13/17 04:59 97.9 F 100 19 132/83 94 Intake and Output 02/12/17 02/13/17 02/13/17 23:59 07:59 15:59 Intake Total 450 / 450 200 / 200 Output Total 0 / 0 1 / 1 Balance 450 / 450 199 / 199 Intake: IV Fluids 200 / 200 0.9 % Sodium Chloride 1, 200 / 200 000 ML @ 50 mls/hr IVC . Q20H ATIF Rx#:[id number] Oral 250 / 250 200 / 200 Output: Urine 0 / 0 Straight Cath 1 / Other: # Voids 1 1 Blood Glucose* 160 115 - General physical appearance well developed, well nourished, no distress - Eyes normal ocular movement - ENT normal mucosa, atraumatic, normocephalic - Neck Neck exam: trachea midline - Respiratory normal respiratory effort - Cardiovascular Cardiovascular exam: Present: RRR - Abdomen Abdomen: Present: bowel sounds present, soft, non tender - Neurologic CN 2-12 grossly intact - Psychiatric oriented to time, oriented to person, oriented to place, speech is normal, memory intact - Labs 02/13/17 10:35 02/12/17 00:40 - VTE Documentation of Mechanical Device: Graduated compression elastic hosiery Consult Discharge Plan - Plan Instructions: Potassium Content of Foods List (DC) Additional Instructions: Follow-up with primary care physician in 7-10 days. Have a repeat CBC done by her family doctor and 2 weeks. Based on the result discuss the need of a colonoscopy. Avoid high potassium foods. Stop metformin due to its contraindication with impairment in kidney function. Avoid aspirin and NSAIDs. Referrals: Beverly Watson MD [Primary Care Provider] - Clarita Ray MD [Partnered Physician] - (my office will contact you to set up the outpatient manometry and then you will follow-up with Dr Colorado to discuss possible Truong) Prescriptions: Ferrous Sulfate 325 mg PO BIDWM #60 tablet Sennosides/Docusate Sodium [Senna-Docusate Sodium Tablet] 1 each PO BID #60 tablet Sucralfate [Carafate] 1 gm PO QIDAC #120 tablet - Attending Attestation I examined this patient and my medical decision-making was reviewed with the ROAD TRAIN DRIVER/PA/Advanced Practice Nurse/Resident Physician. I agree with the documented findings, disposition and treatment plan as described except to the extent set forth below. I examined this patient and my medical decision-making was reviewed with the ROAD TRAIN DRIVER/PA/Advanced Practice Nurse/Resident Physician. I agree with the documented findings, disposition and treatment plan as described except to the extent set forth below.
[2017-02-13 10:44] LABS: Basophils % 0.7 %; Eosinophils # 0.3 K/mcL (0.0-0.6); Hematocrit 32.1 % (35.3-44.9); Hemoglobin 10.1 g/dL (11.5-15.4); Immature Granulocytes % 0.3 % (0-4); Lymphocytes # 1.8 K/mcL (0.6-4.6); Lymphocytes % 30.5 %; Mean Corpuscular HGB Conc 31.5 g/dL (31.6-35.5); Mean Corpuscular Hemoglobin 26.6 pg (28.0-33.3); Mean Corpuscular Volume 84.7 fL (83.0-100.0); Mean Platelet Volume 8.8 fL (9.4-12.4); Monocytes # 0.7 K/mcL (0.0-1.3); Monocytes % 11.3 %; Neutrophils # 3.1 K/mcL (1.6-8.9); Platelet Count 354 K/mcL (140-400); Red Blood Count 3.79 M/mcL (3.82-4.97); Red Cell Distribution Width 14.6 % (11.5-14.5); Segmented Neutrophils % 52.2 %
[2017-02-13] MEDS: Budesonide/Formoterol 160/4.5 MDI IH SCH (10:51)
[2017-02-13] MEDS: Tiotropium 18 MCG inhalation IH SCH (10:55)
[2017-02-13 11:00] LABS: Poikilocytosis 1+ (Not Present); Polychromasia 1+ (Not Present)
[2017-02-13 11:01] LABS: Platelet Estimate Normal (Normal)
--- NOTE | 2017-02-13 11:44 | Discharge Summary ---
Date of Encounter: 02/13/17 Time of Encounter: 11:39 - Discharge Diagnosis (1) Iron deficiency anemia Priority: Primary Status: Acute Qualifiers: Iron deficiency anemia type: chronic blood loss Qualified Code(s): D50.0 - Iron deficiency anemia secondary to blood loss (chronic) (2) COPD (chronic obstructive pulmonary disease) Priority: Secondary Status: Chronic Qualifiers: COPD type: unspecified COPD Qualified Code(s): J44.9 - Chronic obstructive pulmonary disease, unspecified (3) Type 2 diabetes mellitus Priority: Secondary Status: Chronic Qualifiers: Diabetes mellitus complication status: without complication Diabetes mellitus emt intermediate insulin use: without emt intermediate use Qualified Code(s): E11.9 - Type 2 diabetes mellitus without complications (4) DVT prophylaxis Priority: Secondary Status: Acute (5) Duodenitis Priority: Secondary Status: Acute (6) Chronic upper GI bleeding Priority: Secondary Status: Acute - Discharge Medications Prescriptions: Ferrous Sulfate 325 mg PO BIDWM #60 tablet Sennosides/Docusate Sodium [Senna-Docusate Sodium Tablet] 1 each PO BID #60 tablet Sucralfate [Carafate] 1 gm PO QIDAC #120 tablet Home Medications: Anastrozole [Arimidex] 1 mg PO DAILY 07/20/16 [History] Budesonide/Formoterol 160/4.5 [Symbicort 160/4.5] 2 puff IH BIDR 07/20/16 [ History] Denosumab [Prolia (For Outpatient Infusion)] 60 mg SQ [id number] 07/20/16 [History ] Docusate [Colace] 100 mg PO BID PRN 07/20/16 [History] Duloxetine HCl [Cymbalta] 60 mg PO DAILY 07/20/16 [History] Fluticasone Propionate Nasal [Flonase] 2 spr NS DAILY PRN 07/20/16 [History] Ipratropium/Albuterol Sulfate [Combivent Respimat Inhal [place]] 1 puff IH QID [History] Loratadine [Claritin] 10 mg PO DAILY PRN 07/20/16 [History] Pantoprazole Sodium [Protonix] 40 mg PO DAILY 07/20/16 [History] Ranitidine HCl [Heartburn Relief] 150 mg PO HS 07/20/16 [History] Triamterene/HCTZ 37.5/25mg [Dyazide] 0.5 each PO DAILY PRN 07/20/16 [History] Albuterol Sulfate [Proair Hfa] 2 puff IH Q4H PRN 02/11/17 [History] Rosuvastatin [Crestor] 40 mg PO HS 02/11/17 [History] Tiotropium [place] [Spiriva Respimat] 1 puff IH DAILY 02/11/17 [History] Ferrous Sulfate 325 mg PO BIDWM #60 tablet 02/13/17 [Rx] Sennosides/Docusate Sodium [Senna-Docusate Sodium Tablet] 1 each PO BID #60 tablet 02/13/17 [Rx] Sucralfate [Carafate] 1 gm PO QIDAC #120 tablet 02/13/17 [Rx] Allergies/Adverse Reactions: Allergies alendronate sodium [From Fosamax] Allergy (Verified 02/11/17 15:32) See Comments pregabalin [From Lyrica] Allergy (Verified 02/11/17 15:32) Swelling of Lip/Tongue/Throat RISSA Inhibitors Adverse Reaction (Verified 02/11/17 15:32) Cough acetaminophen [From Percocet] Adverse Reaction (Verified 02/11/17 15:32) Nausea clarithromycin [From Biaxin] Adverse Reaction (Verified 02/11/17 15:32) Nausea lisinopril [From Prinivil] Adverse Reaction (Verified 02/11/17 15:32) Nausea Oxycodone [From Percocet] Adverse Reaction (Verified 02/11/17 15:32) Nausea red wine Allergy (Uncoded 07/20/16 15:26) Anaphylaxis Date of admission: 02/11/17 21:02 Primary care physician: Beverly Doshi Consults: 02/11/17 22:53 Consult to Surgery [CONS] Routine Consulting Provider: [facility] Reason for Consult: Endoscopy for suspected GI bleed. Symptomatic anemia and patient with GERD and "dark stools". History of bowel perf during colonoscopy in the past Time Notified: 10:01 Call Completed: Yes - Patient Status Disposition: Home, Self-Care Condition: Good Functional capacity at discharge: independent ambulation Overall status at discharge: patient is back to baseline - Discharge Instructions Instructions: Potassium Content of Foods List (DC) Follow Up With: Beverly Watson MD [Primary Care Provider] - Marvin Parson MD [Partnered Physician] - Additional Instructions: Follow-up with primary care physician in 7-10 days. Have a repeat CBC done by her family doctor and 2 weeks. Based on the result discuss the need of a colonoscopy. Avoid high potassium foods. Stop metformin due to its contraindication with impairment in kidney function. Avoid aspirin and NSAIDs. - Diet and Activity Activity: increase activity as tolerated Diet: diabetic diet, low fat, low cholesterol, low salt diet (Low potassium) Hospital course: Hospital presentation: Ms. Montes is a 81 year old female hypertension, hyperlipidemia, type 2 diabetes, COPD, chronic kidney disease, history of TIA, history of breast cancer, history of bowel perforation status post repair who was sent to the emergency department today by her primary care physician after lab results revealed her hemoglobin was 7.7. Patient had been complaining of shortness of breath for the last 2 months, PCP ordered labs as part of the workup. Patient reports her shortness of breath continues, worse with activity. She reports she has had dark stools, but denies sticky stools, magalis blood, and she says that they are not black just dark. She denies any other sources of bleeding recently, denies any bloody emesis. She reports acid reflux , denies any lightheadedness, palpitations, abdominal pain, diarrhea. She reports she received 2 units of blood last fall, however I cannot find any record of that in the outpatient system. Evaluation in the emergency department included hemoglobin of 8.0. Fecal occult blood was negative. Her creatinine of 1.38, consistent with her baseline CKD. Hospital course: The patient was admitted to the medical service. She received 2 units of PRBC transfusion during this hospitalization. Her hemoglobin increased appropriately to 9.5 and today it is at 10.0. Her generalized weakness has improved although she still reports some dyspnea on exertion. She had an upper endoscopy which revealed a tiny 1 mm nonbleeding duodenal ulcer and a large hiatal hernia. Additionally found inflammation with adherent blood , congestion and erythema and duodenal bulb and first part of the duodenum. Mild inflammation was found in the stomach. Biopsies were taken for H. pylori. The patient was started on Carafate. She will continue with Protonix and Zantac. Iron studies were done and revealed low iron and percent saturation. She will be started on ferrous sulfate stool softener. Her kidney function remains at her baseline, her potassium is slightly elevated and therefore she was instructed to avoid high potassium foods. She was advised to follow up with her primary care physician in one to 2 weeks and have her blood work rechecked at that visit. She was instructed to follow-up for general surgery for evaluation regarding her hiatal hernia. Patient is currently medically stable for discharge home. - Time Spent with Patient Total time spent providing and/or coordinating discharge services: Greater than 30 minutes (I have spent 40 minutes coordinatingg this discharge.) - Constitutional Vitals: Temp Pulse Resp BP Pulse Ox 98.1 F 97 16 129/86 96 02/13/17 07:16 02/13/17 07:16 02/13/17 10:51 02/13/17 07:16 02/13/17 10:51 General appearance: Present: A&O X 3, pleasant, no acute distress - Respiratory Respiratory exam: Present: CTAB. Absent: accessory muscle use, rales, rhonchi, wheezes - Cardiovascular Cardiovascular exam: Present: RRR, +S1, +S2. Absent: diastolic murmur, gallop, rubs, systolic murmur - GI/Abdominal GI/Abdominal exam: Present: normal bowel sounds, soft, no peritoneal signs. Absent: distended, tenderness - VTE Documentation of Mechanical Device: Graduated compression elastic hosiery
--- NOTE | 2017-02-14 08:52 | Electrocardiograph Report ---
[place] [id number] Test Date: 2017-02-11 Pat Name: Vianca Montes Department: 104 Room: [facility] Gender: F Music Promoter: WALLACE : 1935 Requested By: Gill Grewal Order Number: [id number] Reading MD: Jose R Johnson MD Measurements Intervals [place] Rate: 87 P: 47 [place]: 134 QRS: 12 QRSD: 84 T: 40 QT: 346 QTc: 391 Interpretive Statements SINUS RHYTHM LOW QRS VOLTAGE IN PRECORDIAL LEADS Electronically Signed On 02-14-2017 8:50:26 EDT by Jose R Johnson MD
[2017-02-15 10:27] VITALS: BP 147/90
== END 2017-02-13 14:52 | disposition home or self-care (01) ==
LOC: 3NENU 15:09 → EMEROO 15:09 → 3NENU 21:48
PROVIDERS: ADMIT Nurse Practitioner Acute Care; ATTEND Nurse Practitioner Family
PROC: ENDOEBX (2017-02-12 16:00)

== ENCOUNTER 2017-11-19 20:00 | Observation (INO) ==
[2017-11-19] MEDS ORDERED: 0.9 % Sodium Chloride 1,000 ML IVC ONE ×2 (20:09→22:10)
[2017-11-19] MEDS ORDERED: Ipratropium/Albuterol Neb 3 ML IH ONE (20:12)
--- NOTE | 2017-11-19 20:46 | Emergency Department Note ---
Disposition Clinical Impression: Confusion, Acute exacerbation of chronic obstructive pulmonary disease (COPD) UTI (urinary tract infection) Qualifiers: Urinary tract infection type: site unspecified Hematuria presence: without hematuria Qualified Code(s): N39.0 - Urinary tract infection, site not specified Disposition: Admitted As Inpatient Condition: Good SOB HPI - General Chief Complaint: ED Shortness of Breath/Dyspnea Stated Complaint: sob Time Seen by Provider: 11/19/17 20:04 Source: patient, EMS Limitations: no limitations Nursing Notes Reviewed: Yes Vital Signs Reviewed: Yes - History of Present Illness Patient presents today for evaluation of shortness of breath and fever. She was recently diagnosed UTI and prescribed antibiotics. She is concerned that she is having an adverse reaction to this. Patient does have a history of COPD. Patient is on home oxygen. Patient has required an increase in overall oxygen requirement. Nonproductive cough. - Related Data Home Medications Medication Instructions Recorded Confirmed Anastrozole [Arimidex] 1 mg PO DAILY 07/20/16 11/20/17 Denosumab [Prolia (For Outpatient 60 mg SQ [id number] 07/20/16 11/20/17 Infusion)] Fluticasone Propionate Nasal 2 spr NS DAILY PRN 07/20/16 11/20/17 [Flonase] Ipratropium/Albuterol Sulfate 1 puff IH QID PRN 07/20/16 11/20/17 [Combivent Respimat Inhal [place]] Loratadine [Claritin] 10 mg PO DAILY PRN 07/20/16 11/20/17 Pantoprazole Sodium [Protonix] 40 mg PO DAILY 07/20/16 11/20/17 Ranitidine HCl [Heartburn Relief] 150 mg PO HS 07/20/16 11/20/17 Albuterol Sulfate [Proair Hfa] 2 puff IH Q4H PRN 02/11/17 11/20/17 Rosuvastatin [Crestor] 40 mg PO HS 02/11/17 11/20/17 Tiotropium Hydro [Spiriva 1 puff IH BID 02/11/17 11/20/17 Respimat] Sennosides/Docusate Sodium 1 each PO BID PRN 08/03/17 11/20/17 [Senna-Docusate Sodium Tablet] Budesonide/Formoterol 160/4.5 2 puff IH DAILY 11/20/17 11/20/17 [Symbicort 160/4.5] Previous Rx's Medication Instructions Recorded Ferrous Sulfate 325 mg PO BIDWM #60 tablet 02/13/17 Albuterol Neb [Proventil Neb] 2.5 mg IH Q4HR #12 vial.neb 10/29/17 Albuterol Sulfate [Albuterol 2 puff IH QID #1 inhaler 10/29/17 Inhaler] Benzonatate [Tessalon] 200 mg PO TID PRN #20 capsule 10/29/17 Doxycycline 100 mg PO BID #14 capsule 10/29/17 Nebulizer [Aeroeclipse] 1 each ONCE #1 each 10/29/17 Allergies Allergy/AdvReac Type Severity Reaction Status Date / Time alendronate sodium Allergy See Verified 09/01/17 13:05 [From Fosamax] Comments pregabalin [From Lyrica] Allergy Swelling Verified 09/01/17 13:05 of Lip/Tongue/Throat RISSA Inhibitors AdvReac Cough Verified 09/01/17 13:05 acetaminophen [From Percocet] AdvReac Nausea Verified 09/01/17 13:05 clarithromycin [From Biaxin] AdvReac Nausea Verified 09/01/17 13:05 lisinopril [From Prinivil] AdvReac Nausea Verified 09/01/17 13:05 Oxycodone [From Percocet] AdvReac Nausea Verified 09/01/17 13:05 red wine Allergy Anaphylaxis Uncoded 09/01/17 13:05 Review of Systems: CONSTITUTIONAL: Fever, chills, weakness, confusion No weight loss HEENT: Eyes: No visual changes. Ears, Nose, Throat: No hearing loss, difficulty talking or unable to swallow. SKIN: No rash or itching. CARDIOVASCULAR: No chest pain, chest pressure or chest discomfort. No palpitations or edema. RESPIRATORY: Shortness of breath without sputum production GASTROINTESTINAL: No anorexia, nausea, vomiting or diarrhea. No abdominal pain or blood. GENITOURINARY: No burning on urination or hematuria. NEUROLOGICAL: No headache, dizziness, syncope, paralysis, ataxia, numbness or tingling in the extremities. No change in bowel or bladder control. MUSCULOSKELETAL: No muscle pain, back pain, joint pain or stiffness. Past Medical History - Past Medical History Medical history: Reports: arthritis, cancer, COPD, diabetes, GERD, GI bleed, hyperlipidemia, hypertension, migraine, osteoporosis, renal disease, TIA Surgical history: Reports: breast surgery, cancer surgery, colectomy, knee replacement, orthopedic, other, other Psychiatric history: Reports: depression - Social History Smoking Status: Never smoker Smokeless Tobacco Status: No Alcohol use: Reports: none Drug use: Reports: none Physical Exam General appearance: NAD, conversant but mildly confused and slow responses. Eyes: anicteric sclerae, moist conjunctivae; PERRL HENT: Atraumatic; oropharynx clear with moist mucous membranes and no mucosal ulcerations Neck: Normal inspection; Trachea midline; FROM, supple Lungs: Decreased breath sounds with mild wheezing CV: RRR, no MRGs Abdomen: Soft, non-tender; no rebound or gaurding Extremities: No peripheral edema or extremity lymphadenopathy Skin: Normal temperature; no rash, ulcers or lesions Psych: Appropriate mood and affect Neuro: alert and oriented to person; moves all 4 extremity is. No focal deficits. - General Limitations: no limitations General appearance: alert Course - Reevaluation(s) Reevaluation #1: Patient CTA is negative for PE or infection. Patient does have UTI that was treated with Macrobid but worsening confusion. Initially placed on antibiotics secondary to her urinalysis showing a possible only partially treated infection. She will need to undergo further monitoring. Patient will be admitted to the hospital service. Reevaluation #2: Patient has improved significantly since she has been in the emergency department on oxygen as well as given fluids and antibiotics. Patient will need continued monitoring. - Consultations Consultation #1: Discussed with hospitalist. Patient accepted for admission. Vital Signs Temperature 100.4 F H 11/19/17 20:02 Pulse Rate 97 11/19/17 20:02 Respiratory Rate 20 11/19/17 20:02 Blood Pressure 146/91 11/19/17 20:02 O2 Sat by Pulse Oximetry 98 11/19/17 20:02 Temperature 98.6 F 11/21/17 00:13 Pulse Rate 98 11/21/17 00:13 Respiratory Rate 16 11/21/17 00:22 Blood Pressure 136/84 11/21/17 00:13 O2 Sat by Pulse Oximetry 99 11/21/17 00:22 Oxygen Delivery Oxygen Delivery Nasal Cannula Shortness of Breath/Dyspnea - Lab Data Result diagrams: 11/20/17 06:07 11/20/17 06:07 Lab Results 11/19/17 11/19/17 11/19/17 Range/Units 20:30 20:30 21:00 WBC (4.3-11.1) K/mcL RBC (3.82-4.97) M/mcL Hgb (11.5-15.4) g/dL Hct (35.3-44.9) % MCV (83.0-100.0) fL MCH (28.0-33.3) pg MCHC (31.6-35.5) g/dL RDW (11.5-14.5) % Plt Count (140-400) K/mcL MPV (9.4-12.4) fL Immature Gran % (0-4) % Seg Neutrophils % % Lymphocytes % % Monocytes % % Eosinophils % % Basophils % % Neutrophils # (1.6-8.9) K/mcL Lymphocytes # (0.6-4.6) K/mcL Monocytes # (0.0-1.3) K/mcL Eosinophils # (0.0-0.6) K/mcL Basophils # (0.0-0.2) K/mcL PT (9.4-12.1) Seconds INR Sodium 136 (136-145) mEq/L Potassium 4.3 (3.5-5.1) mEq/L Chloride 104 (98-107) mEq/L Carbon Dioxide 24 (23-29) mEq/L BUN 19 (8-23) mg/dL Creatinine 1.24 H (0.60-1.20) mg/dL Est GFR ( Amer) 50 L (> 60) Est GFR (Non-Af Amer) 42 L (> 60) BUN/Creatinine Ratio 15 (6-26) Glucose 196 H (70-105) mg/dL Calculated Osmolality 290 (280-300) Lactic Acid (0.5-2.2) mmol/L Calcium 9.2 (8.6-10.3) mg/dL Phosphorus 2.1 L (2.7-4.5) mg/dL Magnesium 1.7 (1.6-2.6) mg/dL Total Bilirubin 0.5 (0.3-1.0) mg/dL Direct Bilirubin 0.1 (0.0-0.2) mg/dL Indirect Bilirubin 0.4 (0.0-1.2) mg/dL AST 18 (13-39) Units/L ALT 13 (7-52) Units/L Alkaline Phosphatase 34 (34-104) Units/L Troponin I < 0.03 (< 0.04) ng/mL Serum Total Protein 6.7 (6.4-8.9) g/dL Albumin 3.9 (3.5-5.7) g/dL Globulin 2.8 (2.4-3.5) g/dL Albumin/Globulin Ratio 1.4 (1.1-2.2) Ur Specimen Adequacy See below A Urine Color Yellow (Yellow) Urine Clarity Clear (Clear) Urine pH 7.0 (5.0-8.0) pH Units Ur Specific [place] 1.016 (1.010-1.025) Urine Protein 30 H (Neg-Trace) mg/dL Urine Glucose (UA) Normal (Normal) mg/dL Urine Ketones Trace H (Negative) mg/dL Urine Blood Negative (Negative) Urine Nitrite Negative (Negative) Urine Bilirubin Negative (Negative) Urine Urobilinogen Normal (Normal) mg/dL Ur Leukocyte Esterase Negative (Negative) Urine Microscopic RBC 3-5 H (0-3) per hpf Urine Microscopic WBC 0-3 (0-3) per hpf Ur Squamous Epith Cells Many H (None-Few) per lpf Urine Bacteria None Seen (None-Few) per hpf Hyaline Casts None Seen (None-Few) per lpf Ur Culture Indicated? NO (NO) 11/19/17 11/19/17 11/19/17 Range/Units 21:17 21:17 21:17 WBC 7.6 (4.3-11.1) K/mcL RBC 3.87 (3.82-4.97) M/mcL Hgb 11.6 (11.5-15.4) g/dL Hct 35.8 (35.3-44.9) % MCV 92.5 (83.0-100.0) fL MCH 30.0 (28.0-33.3) pg MCHC 32.4 (31.6-35.5) g/dL RDW 13.7 (11.5-14.5) % Plt Count 243 (140-400) K/mcL MPV 8.9 L (9.4-12.4) fL Immature Gran % 0.4 (0-4) % Seg Neutrophils % 84.2 % Lymphocytes % 7.3 % Monocytes % 6.8 % Eosinophils % 1.2 % Basophils % 0.1 % Neutrophils # 6.4 (1.6-8.9) K/mcL Lymphocytes # 0.6 (0.6-4.6) K/mcL Monocytes # 0.5 (0.0-1.3) K/mcL Eosinophils # 0.1 (0.0-0.6) K/mcL Basophils # 0.0 (0.0-0.2) K/mcL PT 11.4 (9.4-12.1) Seconds INR 1.1 Sodium (136-145) mEq/L Potassium (3.5-5.1) mEq/L Chloride (98-107) mEq/L Carbon Dioxide (23-29) mEq/L BUN (8-23) mg/dL Creatinine (0.60-1.20) mg/dL Est GFR ( Amer) (> 60) Est GFR (Non-Af Amer) (> 60) BUN/Creatinine Ratio (6-26) Glucose (70-105) mg/dL Calculated Osmolality (280-300) Lactic Acid 1.6 (0.5-2.2) mmol/L Calcium (8.6-10.3) mg/dL Phosphorus (2.7-4.5) mg/dL Magnesium (1.6-2.6) mg/dL Total Bilirubin (0.3-1.0) mg/dL Direct Bilirubin (0.0-0.2) mg/dL Indirect Bilirubin (0.0-1.2) mg/dL AST (13-39) Units/L ALT (7-52) Units/L Alkaline Phosphatase (34-104) Units/L Troponin I (< 0.04) ng/mL Serum Total Protein (6.4-8.9) g/dL Albumin (3.5-5.7) g/dL Globulin (2.4-3.5) g/dL Albumin/Globulin Ratio (1.1-2.2) Ur Specimen Adequacy Urine Color (Yellow) Urine Clarity (Clear) Urine pH (5.0-8.0) pH Units Ur Specific [place] (1.010-1.025) Urine Protein (Neg-Trace) mg/dL Urine Glucose (UA) (Normal) mg/dL Urine Ketones (Negative) mg/dL Urine Blood (Negative) Urine Nitrite (Negative) Urine Bilirubin (Negative) Urine Urobilinogen (Normal) mg/dL Ur Leukocyte Esterase (Negative) Urine Microscopic RBC (0-3) per hpf Urine Microscopic WBC (0-3) per hpf Ur Squamous Epith Cells (None-Few) per lpf Urine Bacteria (None-Few) per hpf Hyaline Casts (None-Few) per lpf Ur Culture Indicated? (NO) Attestation Statement - Attestation Attestation: I examined this patient and my medical decision-making was reviewed with the Resident Physician. I agree with the documented findings, disposition and treatment plan as described except to the extent set forth below. Fever, possible UTI as source. Will admit pending cultures, start antibiotics. Patient stable at time of admission.
[2017-11-19 20:58] LABS: Albumin 3.9 g/dL (3.5-5.7); Albumin/Globulin Ratio 1.4 (1.1-2.2); Bilirubin,Direct 0.1 mg/dL (0.0-0.2); Bilirubin,Indirect 0.4 mg/dL (0.0-1.2); Bilirubin,Total 0.5 mg/dL (0.3-1.0); Calcium 9.2 mg/dL (8.6-10.3); Globulin 2.8 g/dL (2.4-3.5); Magnesium 1.7 mg/dL (1.6-2.6); Phosphorous 2.1 mg/dL (2.7-4.5); Potassium 4.3 mEq/L (3.5-5.1); Total Protein 6.7 g/dL (6.4-8.9)
[2017-11-19 21:03] LABS: Bilirubin,Urine Negative (Negative); Blood,Urine Negative (Negative); Clarity,Urine Clear (Clear); Color,Urine Yellow (Yellow); Glucose,Urine (UA) Normal (Normal); Ketones,Urine Trace mg/dL (Negative); Leukocyte Esterase,Urine Negative (Negative); Nitrite,Urine Negative (Negative); Protein,Urine 30 mg/dL (Neg-Trace); Specific Gravity,Urine 1.016 (1.010-1.025); Urobilinogen,Urine Normal (Normal)
[2017-11-19 21:07] LABS: Hyaline Casts,Urine None Seen per lpf (None-Few); Squamous Epithelial Cell,Urine Many per lpf (None-Few); WBC,Urine 0-3 per hpf (0-3)
[2017-11-19 21:19] LABS: Bacteria,Urine None Seen per hpf (None-Few)
[2017-11-19 21:27] LABS: Basophils % 0.1 %; Eosinophils # 0.1 K/mcL (0.0-0.6); Eosinophils % 1.2 %; Hematocrit 35.8 % (35.3-44.9); Hemoglobin 11.6 g/dL (11.5-15.4); Immature Granulocytes % 0.4 % (0-4); Lymphocytes # 0.6 K/mcL (0.6-4.6); Lymphocytes % 7.3 %; Mean Corpuscular HGB Conc 32.4 g/dL (31.6-35.5); Mean Corpuscular Volume 92.5 fL (83.0-100.0); Mean Platelet Volume 8.9 fL (9.4-12.4); Monocytes # 0.5 K/mcL (0.0-1.3); Monocytes % 6.8 %; Neutrophils # 6.4 K/mcL (1.6-8.9); Platelet Count 243 K/mcL (140-400); Red Blood Count 3.87 M/mcL (3.82-4.97); Red Cell Distribution Width 13.7 % (11.5-14.5); Segmented Neutrophils % 84.2 %
[2017-11-19 21:32] LABS: INR 1.1; Prothrombin Time 11.4 Seconds (9.4-12.1)
[2017-11-19] MEDS ORDERED: methylPREDNISolone 125 MG/2 ML VIAL IVP ONE (23:42)
[2017-11-19] MEDS ORDERED: cefTRIAXone 1,000 MG in Water for inj. (sterile) 20 ML 10 ML IVP ONE (23:42)
[2017-11-20] MEDS ORDERED: Ipratropium/Albuterol Neb 3 ML IH PRN (01:22)
[2017-11-20] MEDS ORDERED: Naloxone 0.4 MG/ML INJ IVP PRN (01:40)
[2017-11-20] MEDS ORDERED: Ondansetron 4 MG/2 ML VIAL IVP PRN (01:40)
[2017-11-20] MEDS ORDERED: Acetaminophen 325 MG TABLET PO PRN (01:40)
[2017-11-20] MEDS ORDERED: Fluticasone Propionate Nasal 50 MCG/SPRAY BOTTLE NS PRN (01:42)
[2017-11-20] MEDS ORDERED: Loratadine 10 MG TABLET PO PRN (01:42)
[2017-11-20] MEDS ORDERED: Sennosides/Docusate Sodium TABLET PO PRN (01:42)
[2017-11-20] MEDS ORDERED: Benzonatate 100 MG CAPSULE PO PRN (01:42)
[2017-11-20] MEDS ORDERED: Famotidine 20 MG TABLET PO SCH (01:45)
[2017-11-20] MEDS ORDERED: Dextrose Gel 15 GM/37.5 ML TUBE PO PRN ×2 (01:46)
[2017-11-20] MEDS ORDERED: D5% in Water 1,000 ML IVC PRN (01:46)
[2017-11-20] MEDS ORDERED: *HR* Dextrose 50 % in Water (Syg) 50 ML SYRINGE IVP PRN (01:46)
--- NOTE | 2017-11-20 01:51 | Internal Med History&Physical ---
Date of Encounter: 11/20/17 Time of Encounter: 01:30 Assessment and Plan (1) Acute exacerbation of chronic obstructive pulmonary disease (COPD) Current visit: Yes Status: Acute Continue IV solumedrol (Solumedrol 40mg IV q8h) Bronchodilator support O2 supplementation titrate off O2 as tolerated Goal O2 sat: 88-92% IV levaquin CTA chest negative for PNA will closely monitor respiratory status (2) UTI (urinary tract infection) Current visit: Yes Status: Acute D/C Macrobid Levaquin IV qd f/u urine cultures Qualifiers: Urinary tract infection type: site unspecified Hematuria presence: without hematuria Qualified Code(s): N39.0 - Urinary tract infection, site not specified (3) Chronic kidney disease (CKD) Current visit: No Status: Chronic Renal function at baseline continue to monitor Qualifiers: Chronic kidney disease stage: stage 3 (moderate) Qualified Code(s): N18.3 - Chronic kidney disease, stage 3 (moderate) (4) GERD (gastroesophageal reflux disease) Current visit: No Status: Chronic continue home meds Qualifiers: Esophagitis presence: with esophagitis Qualified Code(s): K21.0 - Gastro- esophageal reflux disease with esophagitis (5) Iron deficiency anemia Current visit: No Status: Chronic H&H with acceptable range restart home medications after verification closely monitor H&H Qualifiers: Iron deficiency anemia type: chronic blood loss Qualified Code(s): D50.0 - Iron deficiency anemia secondary to blood loss (chronic) (6) Type 2 diabetes mellitus Current visit: No Status: Chronic Pt noted to not be on any antihyperglycemic agents last A1C from May 2017: 6.6 sliding scale insulin algorithm monitor fingerstick and blood glucose ADA diet Qualifiers: Diabetes mellitus complication status: without complication Diabetes mellitus terminal worker insulin use: without terminal worker use Qualified Code(s): E11.9 - Type 2 diabetes mellitus without complications (7) DVT prophylaxis Current visit: No Status: Acute Heparin SQ (8) Breast CA Current visit: Yes Status: Chronic continue home dose of Anastrozole Qualifiers: Breast location: unspecified site of breast Estrogen receptor status: unspecified Patient sex: female Laterality: unspecified laterality Qualified Code(s): C50.919 - Malignant neoplasm of unspecified site of unspecified female breast Internal Medicine - H&P: HPI Chief complaint: shortness of breath Admitted From: Home Plans for Post Hospital Care: Home History of present illness: Ms. Montes is a 82 year old female with PMH of DM, COPD, HTN, HLD, CKD, breast ca who presented to the ER for worsening shortness of breath and fever. Pt reports of taking Macrobid for her UTI for the last two days and reports ever since she started taking that medication, she has been having persistent headaches and shortness of breath. She states her breathing got a lot worst today along with fever which prompted her visit to the ER. She is not on home oxygen is requiring O2 support in the ER. Reports of persistent dysuria despite starting Macrobid. Currently saturating well on nasal cannula. Denies any chest pain, fever, chills, n/v at this time. Past Med Surg Social Fam HX - Past Medical History Medical history: arthritis, cancer, COPD, diabetes, GERD, GI bleed, hyperlipidemia, hypertension, migraine, osteoporosis, renal disease, TIA Psychiatric history: depression - Past Surgical History Surgical History: breast surgery, cancer surgery, colectomy, knee replacement, orthopedic, other - Social History Smoking Status: Former smoker Smokeless Tobacco Status: No Alcohol use: none Drug use: none - Family History Father Living Status: Hx Family Respiratory Disorders: Yes Hx Family Cancer: No Hx Family Medical Disorders: Yes (alcohol abuse) Mother Adopted: No Family Member Ethnicity: Non- Living Status: Hx Family Cardiac Disorders: No Hx Family Respiratory Disorders: No Hx Family Cancer: No Hx Family GI Disorders: No Hx Family Endocrine Disorder: Yes (DM) Hx Family Neuromuscular Disorders: No Hx Family Neurologic Disorders: Yes (dementia) Hx Family HEENT Disorders: No Hx Family Autoimmune Disorders: No Internal Medicine - H&P: Meds RX: Anastrozole [Arimidex] 1 mg PO DAILY 07/20/16 [History] RX: Denosumab [Prolia (For Outpatient Infusion)] 60 mg SQ [id number] 07/20/16 [ History] RX: Fluticasone Propionate Nasal [Flonase] 2 spr NS DAILY PRN 07/20/16 [History] RX: Ipratropium/Albuterol Sulfate [Combivent Respimat Inhal [place]] 1 puff IH QID PRN 07/20/16 [History] RX: Loratadine [Claritin] 10 mg PO DAILY PRN 07/20/16 [History] RX: Pantoprazole Sodium [Protonix] 40 mg PO DAILY 07/20/16 [History] RX: Ranitidine HCl [Heartburn Relief] 150 mg PO HS 07/20/16 [History] RX: Albuterol Sulfate [Proair Hfa] 2 puff IH Q4H PRN 02/11/17 [History] RX: Rosuvastatin [Crestor] 40 mg PO HS 02/11/17 [History] RX: Tiotropium [place] [Spiriva Respimat] 1 puff IH BID 02/11/17 [History] RX: Ferrous Sulfate 325 mg PO BIDWM #60 tablet 02/13/17 [Rx] Sennosides/Docusate Sodium [Senna-Docusate Sodium Tablet] 1 each PO BID PRN [History] Benzonatate [Tessalon] 200 mg PO TID PRN #20 capsule 10/29/17 [Rx] RX: Albuterol Neb [Proventil Neb] 2.5 mg IH Q4HR #12 vial.neb 10/29/17 [Rx] RX: Albuterol Sulfate [Albuterol Inhaler] 2 puff IH QID #1 inhaler 10/29/17 [Rx] RX: Doxycycline 100 mg PO BID #14 capsule 10/29/17 [Rx] RX: Nebulizer [Aeroeclipse] 1 each ONCE #1 each 10/29/17 [Rx] Budesonide/Formoterol 160/4.5 [Symbicort 160/4.5] 2 puff IH DAILY 11/20/17 [ History] 3 Allergy/AdvReac Type Severity Reaction Status Date / Time alendronate sodium Allergy See Verified 09/01/17 13:05 [From Fosamax] Comments pregabalin [From Lyrica] Allergy Swelling Verified 09/01/17 13:05 of Lip/Tongue/Throat RISSA Inhibitors AdvReac Cough Verified 09/01/17 13:05 acetaminophen [From Percocet] AdvReac Nausea Verified 09/01/17 13:05 clarithromycin [From Biaxin] AdvReac Nausea Verified 09/01/17 13:05 lisinopril [From Prinivil] AdvReac Nausea Verified 09/01/17 13:05 Oxycodone [From Percocet] AdvReac Nausea Verified 09/01/17 13:05 red wine Allergy Anaphylaxis Uncoded 09/01/17 13:05 All Systems PM: A 10-system review of systems was performed and is negative for pertinent findings except as documented above in the HPI. - Constitutional Constitutional: as per HPI - Constitutional Vitals: Temp Pulse Resp BP Pulse Ox 99.4 F 91 22 140/67 97 11/20/17 01:27 11/20/17 01:27 11/20/17 01:27 11/20/17 01:27 11/20/17 01:27 General appearance: Present: cooperative, A&O X 3, pleasant, no acute distress, answers questions appropriately - Head Head exam: Present: atraumatic, normocephalic - Eye Eye exam: Present: conjuntiva pink, sclera anicteric - Respiratory Respiratory exam: Present: decreased breath sounds. Absent: respiratory distress, wheezes (decreased air entry bilaterally, decreased inspiratory effort ) - Cardiovascular Cardiovascular exam: Present: RRR, +S1, +S2. Absent: diastolic murmur, gallop, rubs, systolic murmur - GI/Abdominal GI/Abdominal exam: Present: normal bowel sounds, soft, no peritoneal signs. Absent: distended, tenderness - Extremities Exam Extremities exam: Present: warm, radial pulses palpable and symmetrical. Absent : calf tenderness, cyanotic, pedal edema - Neurological Exam Neurological exam: Present: alert, oriented X3 Internal Med - H&P Results - Labs CBC & Chem 7: 11/19/17 21:17 11/19/17 20:30
[2017-11-20] MEDS: Insulin LISPRO 300 UNITS/3 ML VIAL SQ SCH ×5 (02:17→22:44)
[2017-11-20] MEDS: Ipratropium/Albuterol Neb 3 ML IH SCH ×5 (04:16→19:50)
[2017-11-20] MEDS: *HR* Heparin 5,000 UNIT/ML VIAL SQ SCH ×2 (05:34→16:48)
[2017-11-20 06:43] LABS: Basophils % 0.3 %; Hematocrit 33.9 % (35.3-44.9); Immature Granulocytes % 0.7 % (0-4); Lymphocytes # 0.3 K/mcL (0.6-4.6); Lymphocytes % 4.3 %; Mean Corpuscular HGB Conc 32.4 g/dL (31.6-35.5); Mean Corpuscular Hemoglobin 29.9 pg (28.0-33.3); Mean Corpuscular Volume 92.1 fL (83.0-100.0); Mean Platelet Volume 9.3 fL (9.4-12.4); Monocytes # 0.2 K/mcL (0.0-1.3); Platelet Count 246 K/mcL (140-400); Red Blood Count 3.68 M/mcL (3.82-4.97); Red Cell Distribution Width 13.9 % (11.5-14.5); Segmented Neutrophils % 92.7 %
[2017-11-20 06:56] LABS: Calcium 8.5 mg/dL (8.6-10.3); Magnesium 1.7 mg/dL (1.6-2.6); Phosphorous 2.4 mg/dL (2.7-4.5); Potassium 3.7 mEq/L (3.5-5.1)
[2017-11-20 07:04] LABS: Platelet Estimate Normal (Normal)
[2017-11-20] MEDS: MethylPREDNISolone 40 MG/ML VIAL IVP SCH ×3 (08:03→22:45)
[2017-11-20] MEDS: Anastrozole 1 MG TABLET PO SCH (08:03)
[2017-11-20] MEDS: Budesonide/Formoterol 160/4.5 MDI IH SCH (08:22)
[2017-11-20] MEDS ORDERED: Levofloxacin 750 MG/150 ML 750 MG/150 ML BAG IVPB SCH (09:00)
[2017-11-20] MEDS ORDERED: cefTRIAXone 1,000 MG in Water for inj. (sterile) 10 ML IVP SCH (09:00)
[2017-11-20] MEDS: Famotidine 20 MG TABLET PO SCH ×2 (15:09→22:45)
[2017-11-21] MEDS: Ipratropium/Albuterol Neb 3 ML IH SCH ×5 (00:20→16:01)
[2017-11-21] MEDS: *HR* Heparin 5,000 UNIT/ML VIAL SQ SCH (05:44)
[2017-11-21 07:08] LABS: Adenovirus Not Detected (Not Detect); Bordetella Pertussis Not Detected (Not Detect); Chlamydophila pneumoniae Not Detected (Not Detect); Coronavirus 229E Not Detected (Not Detect); Coronavirus HKU1 Not Detected (Not Detect); Coronavirus NL63 Not Detected (Not Detect); Coronavirus OC43 Not Detected (Not Detect); Human Metapneumovirus Not Detected (Not Detect); Human Rhinovirus/Enterovirus Not Detected (Not Detect); Influenza A Subtype 2009 H1 Not Detected (Not Detect); Influenza A Untypeable Not Detected (Not Detect); Influenza B Not Detected (Not Detect); Mycoplasma pneumoniae Not Detected (Not Detect); Parainfluenza Virus 1 Not Detected (Not Detect); Parainfluenza Virus 2 Not Detected (Not Detect); Parainfluenza Virus 3 Not Detected (Not Detect); Parainfluenza Virus 4 Not Detected (Not Detect); Respiratory Syncytial Virus ***DETECTED*** (Not Detect)
[2017-11-21] MEDS: Budesonide/Formoterol 160/4.5 MDI IH SCH (07:45)
[2017-11-21] MEDS: Insulin LISPRO 300 UNITS/3 ML VIAL SQ SCH ×3 (08:12→17:23)
[2017-11-21] MEDS: Anastrozole 1 MG TABLET PO SCH (08:13)
[2017-11-21] MEDS: MethylPREDNISolone 40 MG/ML VIAL IVP SCH (08:13)
[2017-11-21] MEDS: Famotidine 20 MG TABLET PO SCH (08:13)
--- NOTE | 2017-11-21 09:39 | Discharge Summary ---
Date of Encounter: 11/21/17 Time of Encounter: 09:36 - Discharge Diagnosis (1) Acute exacerbation of chronic obstructive pulmonary disease (COPD) Priority: Primary Status: Acute (2) UTI (urinary tract infection) Priority: Primary Status: Ruled-out Qualifiers: Urinary tract infection type: site unspecified Hematuria presence: without hematuria Qualified Code(s): N39.0 - Urinary tract infection, site not specified (3) Chronic kidney disease (CKD) Priority: Secondary Status: Chronic Qualifiers: Chronic kidney disease stage: stage 3 (moderate) Qualified Code(s): N18.3 - Chronic kidney disease, stage 3 (moderate) (4) Type 2 diabetes mellitus Priority: Secondary Status: Chronic Qualifiers: Diabetes mellitus complication status: with kidney complications Diabetes mellitus complication detail: with chronic kidney disease Diabetes mellitus long term care pharmacist insulin use: without jail use Chronic kidney disease stage: stage 3 (moderate) Qualified Code(s): E11.22 - Type 2 diabetes mellitus with diabetic chronic kidney disease; N18.3 - Chronic kidney disease, stage 3 ( moderate); N18.3 - Chronic kidney disease, stage 3 (moderate) (5) Breast CA Priority: Secondary Status: Inactive Qualifiers: Breast location: unspecified site of breast Estrogen receptor status: unspecified Patient sex: female Laterality: unspecified laterality Qualified Code(s): C50.919 - Malignant neoplasm of unspecified site of unspecified female breast (6) Iron deficiency anemia Priority: Secondary Status: Chronic Qualifiers: Iron deficiency anemia type: chronic blood loss Qualified Code(s): D50.0 - Iron deficiency anemia secondary to blood loss (chronic) - Discharge Medications Prescriptions: levoFLOXacin [Levaquin] 250 mg PO DAILY #5 tablet Phos-NaK [Neutra-Phos] 1 each PO BID #6 powd.pack predniSONE [PredniSONE] 40 mg PO DAILY 5 Days tablet Home Medications: Anastrozole [Arimidex] 1 mg PO DAILY 07/20/16 [History] Denosumab [Prolia (For Outpatient Infusion)] 60 mg SQ [id number] 07/20/16 [History ] Fluticasone Propionate Nasal [Flonase] 2 spr NS DAILY PRN 07/20/16 [History] Ipratropium/Albuterol Sulfate [Combivent Respimat Inhal [place]] 1 puff IH QID PRN 09/13/16 [History] Loratadine [Claritin] 10 mg PO DAILY PRN 07/20/16 [History] Pantoprazole Sodium [Protonix] 40 mg PO DAILY 07/20/16 [History] Ranitidine HCl [Heartburn Relief] 150 mg PO HS 07/20/16 [History] Albuterol Sulfate [Proair Hfa] 2 puff IH Q4H PRN 02/11/17 [History] Rosuvastatin [Crestor] 40 mg PO HS 02/11/17 [History] Sennosides/Docusate Sodium [Senna-Docusate Sodium Tablet] 1 each PO BID PRN [History] Albuterol Neb [Proventil Neb] 2.5 mg IH Q4HR #12 vial.neb 10/29/17 [Rx] Benzonatate [Tessalon] 200 mg PO TID PRN #20 capsule 10/29/17 [Rx] Budesonide/Formoterol 160/4.5 [Symbicort 160/4.5] 2 puff IH DAILY 11/20/17 [ History] Duloxetine HCl [Cymbalta] 60 mg PO DAILY 11/21/17 [History] Nitrofurantoin (BID) [Macrobid] 1 cap PO BID 11/21/17 [History] Phos-NaK [Neutra-Phos] 1 each PO BID #6 powd.pack 11/21/17 [Rx] levoFLOXacin [Levaquin] 250 mg PO DAILY #5 tablet 11/21/17 [Rx] predniSONE [PredniSONE] 40 mg PO DAILY 5 Days tablet 11/21/17 [Rx] Allergies/Adverse Reactions: 3 Allergy/AdvReac Type Severity Reaction Status Date / Time alendronate sodium Allergy See Verified 09/01/17 13:05 [From Fosamax] Comments pregabalin [From Lyrica] Allergy Swelling Verified 09/01/17 13:05 of Lip/Tongue/Throat RISSA Inhibitors AdvReac Cough Verified 09/01/17 13:05 acetaminophen [From Percocet] AdvReac Nausea Verified 09/01/17 13:05 clarithromycin [From Biaxin] AdvReac Nausea Verified 09/01/17 13:05 lisinopril [From Prinivil] AdvReac Nausea Verified 09/01/17 13:05 Oxycodone [From Percocet] AdvReac Nausea Verified 09/01/17 13:05 red wine Allergy Anaphylaxis Uncoded 09/01/17 13:05 Date of admission: 11/19/17 23:54 Primary care physician: Beverly Doshi Consults: 11/20/17 00:53 Consult to Chemical Process Analyst [CONS] Routine Reason for SW Consult: discharge planning Discharging clinician: Mary Thomas Anticipated date of discharge: 11/21/17 - Patient Status Disposition: Home, Self-Care Condition: Fair Functional capacity at discharge: uses cane/walker Overall status at discharge: patient is progressing back to baseline - Discharge Instructions Instructions: Diabetes Mellitus Type 2 in Adults (DC), Chronic Obstructive Pulmonary Disease (DC), Anemia (GEN) Follow Up With: Beverly Watson MD [Primary Care Provider] - (Please follow up as schedule... Your Primary Care Pnone number is [phone]. PCP staff umair call patient for an appt.) Forms: ED Satisfaction Letter - Diet and Activity Activity: wear oxygen at all times Diet: diabetic diet, low fat, low cholesterol, low salt diet Hospital course: Ms. Montes is a 82 year old female with history of COPD, who was admitted with generalized weakness, cough and shortness of breath. CT angiogram of the chest showed no evidence of pneumonia or pulmonary embolism, showed multiple right upper lobe lung nodules, which seemed to be chronic. She was noted to be in acute exacerbation of COPD and was started on empiric IV antibiotics along with IV steroids, bronchodilators and supplemental oxygen. Patient responded significantly to this regimen. Urinalysis was not impressive for UTI and urine culture was negative. UTI was ruled out. Patient continued to require supplemental oxygen. [id number] encounter was conducted on 11/21/2017, patient continues to require 2 L/m oxygen via nasal cannula continuously due to history of COPD. She is noted to be mobile at home and would benefit from a portable home oxygen. vp client services was consulted and arranged for home oxygen. She is otherwise medically stable for discharge with outpatient follow-up. She does follow with outpatient pulmonology and was encouraged to follow-up for repeat CT chest to follow her lung nodules. - Time Spent with Patient Total time spent providing and/or coordinating discharge services: Greater than 30 minutes (45 min) - Constitutional Vitals: Temp Pulse Resp BP Pulse Ox 98.0 F 89 16 122/76 98 11/21/17 07:38 11/21/17 07:38 11/21/17 07:45 11/21/17 07:38 11/21/17 07:45 General appearance: Present: cooperative, A&O X 3, answers questions appropriately - Respiratory Respiratory exam: Present: CTAB. Absent: accessory muscle use, rales, rhonchi, wheezes
[2017-11-21] MEDS ORDERED: Levofloxacin 250 MG/50 ML 250 MG/50 ML BAG IVPB SCH (10:00)
[2017-11-21] MEDS ORDERED: levoFLOXacin 250 MG TABLET PO ONE (12:00)
[2017-11-21] MEDS ORDERED: levoFLOXacin 250 MG TABLET PO SCH (12:30)
--- NOTE | 2017-11-21 14:19 | Electrocardiograph Report ---
[place] [id number] Test Date: 2017-11-19 Pat Name: Vianca Montes Department: 104 Room: 2A25 Gender: F Content Development Specialist: KORIN : 1935 Requested By: Tunde Welsh Order Number: [id number] Reading MD: Lydia Gonzales Measurements Intervals [place] Rate: 99 P: 57 FL: 143 QRS: 10 QRSD: 84 T: 64 QT: 323 QTc: 379 Interpretive Statements SINUS RHYTHM WITH OCCASIONAL VENTRICULAR PREMATURE COMPLEXES POSSIBLE RIGHT VENTRICULAR CONDUCTION DELAY [RSR (QR) IN V1/V2] Electronically Signed On 11-21-2017 14:17:12 EST by Lydia Gonzales
[2017-11-21 15:44] VITALS: BP 123/76
[2017-11-21] MEDS ORDERED: Famotidine 20 MG TABLET PO SCH (21:00)
[2017-11-22] MEDS ORDERED: Levofloxacin 750 MG/150 ML 750 MG/150 ML BAG IVPB SCH (09:00)
[2017-11-22] MEDS ORDERED: predniSONE 20 MG TABLET PO SCH (09:00)
== END 2017-11-21 17:40 | disposition home or self-care (01) ==
LOC: EMEROO 20:00 → 2ANU 20:00
PROVIDERS: ADMIT Internal Medicine; ATTEND Internal Medicine

== ENCOUNTER 2018-06-02 22:36 | Inpatient (IN) ==
[2018-06-02 23:26] LABS: Basophils # 0.1 K/mcL (0.0-0.2); Basophils % 0.4 %; Eosinophils # 0.9 K/mcL (0.0-0.6); Eosinophils % 6.5 %; Hematocrit 34.3 % (35.3-44.9); Hemoglobin 11.3 g/dL (11.5-15.4); Immature Granulocytes % 0.8 % (0-4); Lymphocytes % 20.8 %; Mean Corpuscular HGB Conc 32.9 g/dL (31.6-35.5); Mean Corpuscular Hemoglobin 29.4 pg (28.0-33.3); Mean Corpuscular Volume 89.1 fL (83.0-100.0); Mean Platelet Volume 9.9 fL (9.4-12.4); Monocytes % 7.1 %; Neutrophils # 9.2 K/mcL (1.6-8.9); Platelet Count 267 K/mcL (140-400); Red Blood Count 3.85 M/mcL (3.82-4.97); Segmented Neutrophils % 64.4 %
--- NOTE | 2018-06-02 23:34 | Emergency Department Note ---
Disposition Clinical Impression: Dyspnea Qualifiers: Dyspnea type: unspecified Qualified Code(s): R06.00 - Dyspnea, unspecified COPD (chronic obstructive pulmonary disease) Qualifiers: COPD type: unspecified COPD Qualified Code(s): J44.9 - Chronic obstructive pulmonary disease, unspecified Disposition: Admitted As Inpatient Condition: Good Time of Disposition: 02:36 SOB HPI - General Chief Complaint: ED Shortness of Breath/Dyspnea Stated Complaint: judit Time Seen by Provider: 06/02/18 22:38 Source: patient, family, EMS Limitations: no limitations Nursing Notes Reviewed: Yes Vital Signs Reviewed: Yes - History of Present Illness 83-year-old female with known history of COPD presents via squad with dyspnea. She mentioned she was seen by her primary care provider, treated with antibiotics 7 days ago, however states that she had no improvement. She states that it was worse during the day, and much worse and ice which prompted her visit to call the squad and she does live alone. She states she had some relief after repeat treatments via squad. She does mention that she has been on home oxygen for 2 months usually at night. She also uses CPAP. She states her shortness of breath is worse when she walks around, and she has some right lateral chest wall pain when coughing.. She mentions a history of reflux and some pain in her throat when she coughs. She denies any chest pain, diaphoresis , nausea, vomiting, hemoptysis, abdominal pain, back pain, near syncopal symptoms, fevers, or increased phlegm production. - Related Data Home Medications Medication Instructions Recorded Confirmed Anastrozole [Arimidex] 1 mg PO DAILY 07/20/16 04/07/18 Denosumab [Prolia (For Outpatient 60 mg SQ [id number] 07/20/16 11/30/17 Infusion)] Fluticasone Propionate Nasal 2 spr NS DAILY PRN 07/20/16 04/07/18 [Flonase] Ipratropium/Albuterol Sulfate 1 puff IH QID PRN 07/20/16 04/07/18 [Combivent Respimat Inhal [place]] Loratadine [Claritin] 10 mg PO DAILY PRN 07/20/16 04/07/18 Pantoprazole Sodium [Protonix] 40 mg PO DAILY PRN 07/20/16 11/30/17 Ranitidine HCl [Heartburn Relief] 150 mg PO HS 07/20/16 04/07/18 Albuterol Sulfate [Proair Hfa] 2 puff IH Q4H PRN 02/11/17 11/30/17 Rosuvastatin [Crestor] 40 mg PO HS 02/11/17 04/07/18 Sennosides/Docusate Sodium 1 each PO BID PRN 08/03/17 04/07/18 [Senna-Docusate Sodium Tablet] Budesonide/Formoterol 160/4.5 2 puff IH DAILY 11/20/17 04/07/18 [Symbicort 160/4.5] Duloxetine HCl [Cymbalta] 60 mg PO DAILY 11/21/17 04/07/18 Albuterol Neb [AccuNeb] 1.25 mg IH BID PRN 04/07/18 04/07/18 Albuterol Neb [Proventil Neb] 2.5 mg IH Q4H 04/07/18 04/07/18 Biotin 5,000 mcg PO DAILY 04/07/18 04/07/18 Cholecalciferol (Vitamin D3) 5,000 unit PO DAILY 04/07/18 04/07/18 [Vitamin D3] Cyanocobalamin (Vitamin B-12) 1,000 mcg PO DAILY 04/07/18 04/07/18 [Vitamin B12] Denosumab [Prolia (For Outpatient 60 mg SQ Q6M 04/07/18 04/07/18 Infusion)] Multivitamin [One Daily 1 each PO DAILY 04/07/18 04/07/18 Multivitamin] Polyethylene Glycol 3350 [MiraLAX] 17 gm PO DAILY PRN 04/07/18 04/07/18 Tiotropium [Spiriva] 2 puff IH DAILY 04/07/18 04/07/18 metFORMIN [Glucophage] 500 mg PO 0800 04/07/18 04/07/18 Previous Rx's Medication Instructions Recorded Benzonatate [Tessalon] 200 mg PO TID PRN #20 capsule 10/29/17 Allergies Allergy/AdvReac Type Severity Reaction Status Date / Time alendronate sodium Allergy See Verified 09/01/17 13:05 [From Fosamax] Comments pregabalin [From Lyrica] Allergy Swelling Verified 09/01/17 13:05 of Lip/Tongue/Throat RISSA Inhibitors AdvReac Cough Verified 09/01/17 13:05 acetaminophen [From Percocet] AdvReac Nausea Verified 09/01/17 13:05 clarithromycin [From Biaxin] AdvReac Nausea Verified 09/01/17 13:05 lisinopril [From Prinivil] AdvReac Nausea Verified 09/01/17 13:05 Oxycodone [From Percocet] AdvReac Nausea Verified 09/01/17 13:05 red wine Allergy Anaphylaxis Uncoded 09/01/17 13:05 All systems ED: reviewed and negative except as stated. Review of Systems: As Per HPI Constitutional: Denies: fever, chills, weakness Eyes: Denies: vision change ENT ED: Denies: throat pain Cardiovascular: Denies: chest pain, palpitations Respiratory: Reports: as per HPI Gastrointestinal: Denies: abdominal pain, nausea, vomiting Genitourinary: Denies: dysuria Musculoskeletal: Denies: back pain Neurological: Denies: headache, weakness, numbness Endocrine: Denies: fatigue Hematological/Lymphatic: Denies: easy bleeding Allergic/Immunologic: Denies: facial swelling Past Medical History - Past Medical History Medical history: Reports: arthritis, cancer, COPD, diabetes, GERD, GI bleed, hyperlipidemia, hypertension, migraine, osteoporosis, renal disease, TIA Surgical history: Reports: breast surgery, cancer surgery, colectomy, knee replacement, orthopedic, other, other Psychiatric history: Reports: depression - Social History Smoking Status: Never smoker Smokeless Tobacco Status: No Alcohol use: Reports: none Drug use: Reports: none Physical Exam - General Limitations: no limitations General appearance: alert, in no apparent distress - Head Head exam: atraumatic, normocephalic - Eye Eye exam: Present: normal appearance, EOMI - ENT ENT exam: mucous membranes moist - Neck Neck exam: Present: full ROM - Chest Chest inspection: Present: normal inspection, symmetric chest wall rise - Respiratory Respiratory exam: Present: wheezes. Absent: respiratory distress, stridor, prolonged expiratory phase - Cardiovascular Cardiovascular exam: Present: regular rate, normal rhythm - Abdominal Exam Abdominal exam: Present: soft, Non-Tender - Extremities Exam Extremities exam: Present: normal inspection, full ROM, normal capillary refill - Back Exam Back exam: Present: full ROM. Absent: CVA tenderness (R), CVA tenderness (L) - Neurological Exam Neurological exam: Present: alert - Psychiatric Psychiatric exam: Present: normal affect, normal mood - Skin Skin exam: Present: warm, dry, intact, normal color. Absent: rash, cyanosis, diaphoresis Course Course Narrative: Patient is a 83-year-old female non smoker arrives via squad with complaint of dyspnea. Patient describes it as worsening over the past week, but she does state that is better after a breathing treatment in route. She does have history of COPD. Was placed on an antibiotic one week ago at her PCPs office, however reportedely for a UTI, not for respiratory issues. Pt denies any UTI symptoms or abdominal pain last week or tonight, apparently she was given the abx after a UA at her PCP's office. She is unfamiliar with the name of the medication but states she took it twice a day and finished it completely.. Nursing had reported that there was some reported confusion, however my examination patient is alert and oriented 3 no acute distress does not look toxic, and no evidence of any altered mental status. She does mention worsening with exertion, and some right lateral chest wall pain when she coughs otherwise denies any chest pain nausea diaphoresis pain or near syncopal symptoms. She uses oxygen 3L as needed at home and CPAP at home. On examination her vitals within normal limits. She does not look toxic or in distress. No conversational dyspnea nor accessory muscle use. Lung sounds decreased, but wheezing bilaterally. Considering COPD exacerbation. Workup initiated. DuoNeb's , solumedrol ordered. - Reevaluation(s) Reevaluation #1: Patient's chest x-ray shows by bibasilar reticular opacities, radiologist impression consistent with atypical pneumonia or pulmonary edema. Patient's BNP within normal limits. She also has a leukocytosis of 14. She denies any history of recent systemic steroids. She has an elevated calcium at 12.1, but does have a history of hypercalcemia and chronic kidney disease noted from her past medical records. Her creatine is slightly worse from previous. Patient did receive Solu-Medrol and DuoNeb's here. On reexamination her lung sounds do sound improved, however she feels that there is no improvement from these medications. Patient and work up was discussed with attending Dr. Douglass, who agreed to see patient, and agreed for admission for dyspnea, COPD exacerbation versus pneumonia. Lactic acid and blood cultures have been taken. Urinalysis still pending patient's urine specimen. She describes her last admission approx 6 months ago. We will initiate antibiotics after that is gathered, and will page hospitalist. Time: 00:49 Reevaluation #2: Limited urine was collected for urinalysis as patient had only voided 1 mL and catch. Patient scribes a history of incontinence, and denies any urge to urinate. She describes a history of incontinence and uses Depends. I was unable to visualize the bladder on ultrasound. Straight catheter produced additional 1 mL. Antibiotics have been ordered. Patient discussed with and accepted by Dr. Mak, and also advised for fluids. Time: 02:33 Vital Signs Temperature 98.6 F 06/02/18 22:40 Pulse Rate 89 06/02/18 22:40 Respiratory Rate 18 06/02/18 22:40 Blood Pressure 117/78 06/02/18 22:40 O2 Sat by Pulse Oximetry 97 06/02/18 22:40 Temperature 98.2 F 06/03/18 03:26 Pulse Rate 98 06/03/18 03:26 Respiratory Rate 22 06/03/18 04:33 Blood Pressure 139/71 06/03/18 03:26 O2 Sat by Pulse Oximetry 96 06/03/18 04:33 Oxygen Delivery Oxygen Delivery Nasal Cannula Shortness of Breath/Dyspnea - MDM Narrative Medical decision making narrative: Patient is a 3-year-old female with known history of COPD presented with dyspnea. Her shortness of breath did worsen on exertion, she denied any substernal chest pain diaphoresis nausea vomiting or extremity pain. She did have some painful inspiration on her right lateral chest wall. No hemoptysis. Some improvement after DuoNeb in route, but patient denied any improvement after treatment here although her lung sounds. Her workup today appears to be consistent with pneumonia, she was given a dose of Rocephin here, fluids, was accepted to hospitalist for further evaluation and treatment of her dyspnea. Patient discussed with Dr. Douglass, who agreed with evaluation and disposition for admission. Chest X-Ray 06/02/18 22:42 IMPRESSION: Nonspecific bibasilar reticular opacities could represent atypical pneumonia or pulmonary edema. D/ / Robert Thakur MD / Robert Thakur MD Interpreting Provider: Robert Thakur MD Laboratory Tests 06/02/18 06/02/18 06/02/18 23:08 23:08 23:08 WBC 14.2 H RBC 3.85 Hgb 11.3 L Hct 34.3 L MCV 89.1 MCH 29.4 MCHC 32.9 RDW 14.0 Plt Count 267 MPV 9.9 Immature Gran % 0.8 Seg Neutrophils % 64.4 Lymphocytes % 20.8 Monocytes % 7.1 Eosinophils % 6.5 Basophils % 0.4 Neutrophils # 9.2 H Lymphocytes # 3.0 Monocytes # 1.0 Eosinophils # 0.9 H Basophils # 0.1 Sodium 138 Potassium 3.6 Chloride 103 Carbon Dioxide 24 BUN 28 H Creatinine 1.81 H Est GFR ( Amer) 32 L Est GFR (Non-Af Amer) 27 L BUN/Creatinine Ratio 15 Glucose 187 H Calculated Osmolality 296 Lactic Acid 1.5 Calcium 12.1 H Troponin I < 0.03 B-Natriuretic Peptide 06/02/18 23:08 WBC RBC Hgb Hct MCV MCH MCHC RDW Plt Count MPV Immature Gran % Seg Neutrophils % Lymphocytes % Monocytes % Eosinophils % Basophils % Neutrophils # Lymphocytes # Monocytes # Eosinophils # Basophils # Sodium Potassium Chloride Carbon Dioxide BUN Creatinine Est GFR ( Amer) Est GFR (Non-Af Amer) BUN/Creatinine Ratio Glucose Calculated Osmolality Lactic Acid Calcium Troponin I B-Natriuretic Peptide 82 - Lab Data Lab results reviewed: Yes I reviewed the patient's lab results. Result diagrams: 06/02/18 23:08 06/02/18 23:08 Lab Results 06/02/18 06/02/18 06/02/18 Range/Units 23:08 23:08 23:08 WBC 14.2 H (4.3-11.1) K/mcL RBC 3.85 (3.82-4.97) M/mcL Hgb 11.3 L (11.5-15.4) g/dL Hct 34.3 L (35.3-44.9) % MCV 89.1 (83.0-100.0) fL MCH 29.4 (28.0-33.3) pg MCHC 32.9 (31.6-35.5) g/dL RDW 14.0 (11.5-14.5) % Plt Count 267 (140-400) K/mcL MPV 9.9 (9.4-12.4) fL Immature Gran % 0.8 (0-4) % Seg Neutrophils % 64.4 % Lymphocytes % 20.8 % Monocytes % 7.1 % Eosinophils % 6.5 % Basophils % 0.4 % Neutrophils # 9.2 H (1.6-8.9) K/mcL Lymphocytes # 3.0 (0.6-4.6) K/mcL Monocytes # 1.0 (0.0-1.3) K/mcL Eosinophils # 0.9 H (0.0-0.6) K/mcL Basophils # 0.1 (0.0-0.2) K/mcL Sodium 138 (136-145) mEq/L Potassium 3.6 (3.5-5.1) mEq/L Chloride 103 (98-107) mEq/L Carbon Dioxide 24 (23-29) mEq/L BUN 28 H (8-23) mg/dL Creatinine 1.81 H (0.60-1.20) mg/dL Est GFR ( Amer) 32 L (> 60) Est GFR (Non-Af Amer) 27 L (> 60) BUN/Creatinine Ratio 15 (6-26) Glucose 187 H (70-105) mg/dL Calculated Osmolality 296 (280-300) Lactic Acid 1.5 (0.5-2.2) mmol/L Calcium 12.1 H (8.6-10.3) mg/dL Troponin I < 0.03 (< 0.04) ng/mL B-Natriuretic Peptide (Less than 100) pg/mL Ur Specimen Adequacy Urine Color (Yellow) Urine Clarity (Clear) Urine pH (5.0-8.0) pH Units Ur Specific [place] (1.010-1.025) Urine Protein (Neg-Trace) mg/dL Urine Glucose (UA) (Normal) mg/dL Urine Ketones (Negative) mg/dL Urine Blood (Negative) Urine Nitrite (Negative) Urine Bilirubin (Negative) Urine Urobilinogen (Normal) mg/dL Ur Leukocyte Esterase (Negative) Urine Microscopic RBC (0-3) per hpf Urine Microscopic WBC (0-3) per hpf Ur Squamous Epith Cells (None-Few) per lpf Urine Bacteria (None-Few) per hpf Hyaline Casts (None-Few) per lpf Ur Culture Indicated? (NO) 06/02/18 06/03/18 Range/Units 23:08 02:25 WBC (4.3-11.1) K/mcL RBC (3.82-4.97) M/mcL Hgb (11.5-15.4) g/dL Hct (35.3-44.9) % MCV (83.0-100.0) fL MCH (28.0-33.3) pg MCHC (31.6-35.5) g/dL RDW (11.5-14.5) % Plt Count (140-400) K/mcL MPV (9.4-12.4) fL Immature Gran % (0-4) % Seg Neutrophils % % Lymphocytes % % Monocytes % % Eosinophils % % Basophils % % Neutrophils # (1.6-8.9) K/mcL Lymphocytes # (0.6-4.6) K/mcL Monocytes # (0.0-1.3) K/mcL Eosinophils # (0.0-0.6) K/mcL Basophils # (0.0-0.2) K/mcL Sodium (136-145) mEq/L Potassium (3.5-5.1) mEq/L Chloride (98-107) mEq/L Carbon Dioxide (23-29) mEq/L BUN (8-23) mg/dL Creatinine (0.60-1.20) mg/dL Est GFR ( Amer) (> 60) Est GFR (Non-Af Amer) (> 60) BUN/Creatinine Ratio (6-26) Glucose (70-105) mg/dL Calculated Osmolality (280-300) Lactic Acid (0.5-2.2) mmol/L Calcium (8.6-10.3) mg/dL Troponin I (< 0.04) ng/mL B-Natriuretic Peptide 82 (Less than 100) pg/mL Ur Specimen Adequacy See below A Urine Color Yellow (Yellow) Urine Clarity Clear (Clear) Urine pH 5.5 (5.0-8.0) pH Units Ur Specific [place] 1.015 (1.010-1.025) Urine Protein Trace (Neg-Trace) mg/dL Urine Glucose (UA) Normal (Normal) mg/dL Urine Ketones Negative (Negative) mg/dL Urine Blood Small H (Negative) Urine Nitrite Negative (Negative) Urine Bilirubin Negative (Negative) Urine Urobilinogen Normal (Normal) mg/dL Ur Leukocyte Esterase Trace H (Negative) Urine Microscopic RBC 0-3 (0-3) per hpf Urine Microscopic WBC 0-3 (0-3) per hpf Ur Squamous Epith Cells Few (None-Few) per lpf Urine Bacteria None Seen (None-Few) per hpf Hyaline Casts None Seen (None-Few) per lpf Ur Culture Indicated? YES A (NO) - Radiology Data Radiology results reviewed: Yes I reviewed the patient's radiology results. - EKG Data EKG attestation: Yes I reviewed and interpreted this EKG. Attestation Statement - Attestation Attestation: I examined this patient and my medical decision-making was reviewed with the Resident Physician. I agree with the documented findings, disposition and treatment plan as described except to the extent set forth below. Possible pneumonia, start antibiotic therapy, cultures sent, bronchodilator for wheezing , admitted for further management of pneumonia in the setting of bronchospasm and hypoxia.
[2018-06-02] MEDS ORDERED: Ipratropium/Albuterol Neb 3 ML IH ONE (23:35)
[2018-06-02] MEDS ORDERED: methylPREDNISolone 125 MG/2 ML VIAL IVP ONE (23:35)
[2018-06-02 23:42] LABS: BUN/Creatinine Ratio 15 (6-26); Blood Urea Nitrogen 28 mg/dL (8-23); Calcium 12.1 mg/dL (8.6-10.3); Carbon Dioxide 24 mEq/L (23-29); Chloride 103 mEq/L (98-107); Glucose 187 mg/dL (70-105); Osmolality,Calculated 296 (280-300); Potassium 3.6 mEq/L (3.5-5.1); Sodium 138 mEq/L (136-145); Troponin I < 0.03 ng/mL (< 0.04); eGFR For Non-African Americans 27 (> 60)
[2018-06-03] MEDS ORDERED: cefTRIAXone 1,000 MG in Water for inj. (sterile) 20 ML 10 ML IVP ONE (00:49)
[2018-06-03] MEDS ORDERED: 0.9 % Sodium Chloride 1,000 ML IVC ONE (02:26)
[2018-06-03 02:45] LABS: Bilirubin,Urine Negative (Negative); Blood,Urine Small (Negative); Clarity,Urine Clear (Clear); Color,Urine Yellow (Yellow); Glucose,Urine (UA) Normal (Normal); Ketones,Urine Negative (Negative); Leukocyte Esterase,Urine Trace (Negative); Nitrite,Urine Negative (Negative); PH,Urine 5.5 pH Units (5.0-8.0); Protein,Urine Trace mg/dL (Neg-Trace); Specific Gravity,Urine 1.015 (1.010-1.025); Urobilinogen,Urine Normal (Normal)
[2018-06-03 02:55] LABS: Hyaline Casts,Urine None Seen per lpf (None-Few)
[2018-06-03 02:56] LABS: RBC,Urine 0-3 per hpf (0-3); Squamous Epithelial Cell,Urine Few per lpf (None-Few)
[2018-06-03 02:57] LABS: Bacteria,Urine None Seen per hpf (None-Few); WBC,Urine 0-3 per hpf (0-3)
--- NOTE | 2018-06-03 03:23 | Internal Med History&Physical ---
<David Monreal - Last Filed: 06/03/18 04:45> Date of Encounter: 06/03/18 Time of Encounter: 03:15 Internal Medicine - H&P: HPI Chief complaint: SOB Admitted From: Home History of present illness: Ms. Montes is a 83 year old female with a past medical history of COPD on 3 L of O2 at baseline, CPAP use, diabetes mellitus type 2, breast cancer, CKD stage III, and GERD who presented from home via EMS complaining of difficulty breathing. Of note, patient was treated with antibiotics 7 days ago for urinary tract infection with no improvement in respiratory symptoms. She reports shortness of breath is worse with exertion. She reports nonproductive cough and right-sided chest wall pain. Patient reports significant relief after breathing treatment by EMS. Patient reports one episode of abdominal pain , vomiting, and BRB clot in stool yesterday. Patient denies fever, chills, hemoptysis, nausea, hematemesis, diarrhea, leg edema, or increased phlegm production. She reports a history of incontinence and uses Depends. Past Med Surg Social Fam HX - Past Medical History Medical history: arthritis, cancer, COPD, diabetes, GERD, GI bleed, hyperlipidemia, hypertension, migraine, osteoporosis, renal disease, TIA Additional medical history: high cholesterol Psychiatric history: depression - Past Surgical History Surgical History: breast surgery, cancer surgery, colectomy, knee replacement, orthopedic, other, other Additional surgical history: abdominal surgery multiple - lymph nodes - Social History Smoking Status: Former smoker (quit 54 yr ago) Smokeless Tobacco Status: No Alcohol use: none Drug use: none Current living situation: Home - Independent - Family History Father Living Status: Hx Family Respiratory Disorders: Yes Hx Family Cancer: No Mother Adopted: No Family Member Ethnicity: Non- Living Status: Hx Family Cardiac Disorders: No Hx Family Respiratory Disorders: No Hx Family Cancer: No Hx Family GI Disorders: No Hx Family Endocrine Disorder: Yes (DM) Hx Family Neuromuscular Disorders: No Hx Family Neurologic Disorders: Yes (dementia) Hx Family HEENT Disorders: No Hx Family Autoimmune Disorders: No Internal Medicine - H&P: Meds Anastrozole [Arimidex] 1 mg PO DAILY 07/20/16 [History] Denosumab [Prolia (For Outpatient Infusion)] 60 mg SQ [id number] 07/20/16 [History ] Fluticasone Propionate Nasal [Flonase] 2 spr NS DAILY PRN 07/20/16 [History] Ipratropium/Albuterol Sulfate [Combivent Respimat Inhal Garber] 1 puff IH QID PRN 07/20/16 [History] Loratadine [Claritin] 10 mg PO DAILY PRN 07/20/16 [History] Pantoprazole Sodium [Protonix] 40 mg PO DAILY PRN 07/20/16 [History] Ranitidine HCl [Heartburn Relief] 150 mg PO HS 07/20/16 [History] Albuterol Sulfate [Proair Hfa] 2 puff IH Q4H PRN 02/11/17 [History] Rosuvastatin [Crestor] 40 mg PO HS 02/11/17 [History] Sennosides/Docusate Sodium [Senna-Docusate Sodium Tablet] 1 each PO BID PRN [History] Benzonatate [Tessalon] 200 mg PO TID PRN #20 capsule 10/29/17 [Rx] Budesonide/Formoterol 160/4.5 [Symbicort 160/4.5] 2 puff IH DAILY 11/20/17 [ History] Duloxetine HCl [Cymbalta] 60 mg PO DAILY 11/21/17 [History] Albuterol Neb [AccuNeb] 1.25 mg IH BID PRN 04/07/18 [History] Albuterol Neb [Proventil Neb] 2.5 mg IH Q4H 04/07/18 [History] Biotin 5,000 mcg PO DAILY 04/07/18 [History] Cholecalciferol (Vitamin D3) [Vitamin D3] 5,000 unit PO DAILY 04/07/18 [History] Cyanocobalamin (Vitamin B-12) [Vitamin B12] 1,000 mcg PO DAILY 04/07/18 [History ] Denosumab [Prolia (For Outpatient Infusion)] 60 mg SQ Q6M 04/07/18 [History] Multivitamin [One Daily Multivitamin] 1 each PO DAILY 04/07/18 [History] Polyethylene Glycol 3350 [MiraLAX] 17 gm PO DAILY PRN 04/07/18 [History] Tiotropium [Spiriva] 2 puff IH DAILY 04/07/18 [History] metFORMIN [Glucophage] 500 mg PO 0800 04/07/18 [History] 3 Allergy/AdvReac Type Severity Reaction Status Date / Time alendronate sodium Allergy See Verified 09/01/17 13:05 [From Fosamax] Comments pregabalin [From Lyrica] Allergy Swelling Verified 09/01/17 13:05 of Lip/Tongue/Throat RISSA Inhibitors AdvReac Cough Verified 09/01/17 13:05 acetaminophen [From Percocet] AdvReac Nausea Verified 09/01/17 13:05 clarithromycin [From Biaxin] AdvReac Nausea Verified 09/01/17 13:05 lisinopril [From Prinivil] AdvReac Nausea Verified 09/01/17 13:05 Oxycodone [From Percocet] AdvReac Nausea Verified 09/01/17 13:05 red wine Allergy Anaphylaxis Uncoded 09/01/17 13:05 All Systems PM: A 10-system review of systems was performed and is negative for pertinent findings except as documented above in the HPI. - Constitutional Constitutional: fatigue, lethargy, weakness, no chills, no fever(s), no falls, no weight gain, no weight loss - EENT Eyes: no blurry vision, no diplopia Nose, mouth and throat: post-nasal drip, sore throat - Cardiovascular Cardiovascular ROS IM: chest pain, dyspnea, dyspnea on exertion, no palpitations , no syncope - Respiratory Respiratory: cough, dyspnea on exertion, chest congestion, pain with cough, no excessive phlegm production - Gastrointestinal Gastrointestinal: heartburn, hematochezia, vomiting, no abdominal pain, no constipation, no diarrhea, no nausea - Genitourinary Genitourinary: urinary incontinence (Chronic), no dysuria, no urinary urgency Menstruation: post menopausal - Musculoskeletal Musculoskeletal ROS IM: arthralgias, no numbness, no tingling - Integumentary Integumentary IM: no erythema, no rash, no skin ulcer - Neurological Neurological ROS: confusion, weakness, no numbness, no tingling - Psychiatric Psychiatric: no anxiety, no depression - Endocrine Endocrine IM: fatigue, no polydipsia, no polyphagia, no polyuria - Constitutional Vitals: Temp Pulse Resp BP Pulse Ox 98.5 F 89 18 139/59 97 06/03/18 03:07 06/02/18 22:40 06/03/18 03:07 06/03/18 03:07 06/02/18 22:40 General appearance: Present: cooperative, A&O X 3, pleasant, no acute distress, answers questions appropriately - Head Head exam: Present: atraumatic, normocephalic - Eye Eye exam: Present: EOMI, conjuntiva pink, sclera anicteric - ENT ENT exam: Present: mucous membranes dry, normal oropharynx - Expanded ENT Exam Throat exam: Present: post pharyngeal erythema - Neck Neck exam general surgery: Present: supple, trachea midline. Absent: lymphadenopathy - Respiratory Respiratory exam: Present: decreased breath sounds (course breath sounds), wheezes (On 2 L nasal cannula). Absent: accessory muscle use, rales, respiratory distress, rhonchi - Cardiovascular Cardiovascular exam: Present: RRR, +S1, +S2. Absent: diastolic murmur, gallop, rubs, systolic murmur - GI/Abdominal GI/Abdominal exam: Present: normal bowel sounds, soft, no peritoneal signs. Absent: distended, guarding, tenderness - Extremities Exam Extremities exam: Present: normal capillary refill, normal inspection, warm, radial pulses palpable and symmetrical. Absent: calf tenderness, cyanotic, pedal edema - Back Exam Back exam: Present: normal inspection. Absent: paraspinal tenderness, tenderness - Neurological Exam Neurological exam: Present: alert, CN II-XII intact, oriented X3, no focal deficits. Absent: pronater drift, facial droop, speech deficit - Psychiatric Psychiatric exam: Present: normal affect, normal mood - Skin Skin exam: Present: dry, intact, normal color, warm Internal Med - H&P Results - Labs CBC & Chem 7: 06/02/18 23:08 06/02/18 23:08 - Pulse Oximetry Interpretation Digit-Finger O2 Sat by Pulse Oximetry: 97 (On 2 L nasal cannula) - Impressions ITS Impressions Chest X-Ray 06/02/18 22:42 IMPRESSION: Nonspecific bibasilar reticular opacities could represent atypical pneumonia or pulmonary edema. D/ / Robert Thakur MD / Robert Thakur MD Interpreting Provider: Robert Thakur MD - Assessment and plan (1) Community acquired pneumonia Current Visit: Yes Status: Acute Assessment and plan: 83-year-old female with shortness of breath, cough, leukocytosis WBC 14.2 with left shift, CXR reveals nonspecific bibasilar reticular opacities could represent atypical pneumonia or pulmonary edema. Urine Legionella and strep pneumo antigens pending Blood culture pending Patient was started on Rocephin and Solu-Medrol 25 mg IV in the ED Continue Rocephin IV (day 1) Continue Solu-Medrol IV Continue bronchodilators Continue supplement oxygen Encourage incentive spirometry Qualifiers: Laterality: unspecified laterality Qualified Code(s): J18.9 - Pneumonia, unspecified organism (2) Acute and chronic respiratory failure with hypoxia Current Visit: Yes Status: Acute Assessment and plan: Patient presents with acute respiratory failure, SPO2 less than 88% at home, and respiratory distress prior to breathing treatment She wears 3 L oxygen at baseline Continue bronchodilators Continue CPAP qHS Continue monitoring (3) Acute exacerbation of chronic obstructive pulmonary disease (COPD) Current Visit: Yes Status: Acute Assessment and plan: Patient with long-standing COPD Continue antibiotics, steroids, and bronchodilators (4) Anemia Current Visit: Yes Status: Acute Assessment and plan: Hemoglobin level 11.3 on admission Patient reports one episode of BRB clot in stool yesterday No signs of active bleeding Fecal occult blood test pending Continue monitoring Qualifiers: Anemia type: due to chronic kidney disease Chronic kidney disease stage: stage 3 (moderate) Qualified Code(s): N18.3 - Chronic kidney disease, stage 3 (moderate); D63.1 - Anemia in chronic kidney disease (5) CKD (chronic kidney disease) stage 3, GFR 30-59 ml/min Current Visit: Yes Status: Chronic Assessment and plan: Continue gentle hydration Avoid nephrotoxins Continue close monitoring (6) Type 2 diabetes mellitus Current Visit: Yes Status: Chronic Assessment and plan: Hemoglobin A1c level 6.6% on 05/18/17 Continue Accu-Cheks ACHS Low dose SSI ADA diet Continue close monitoring Qualifiers: Diabetes mellitus longterm insulin use: without long term care pharmacist use Diabetes mellitus complication status: with kidney complications Diabetes mellitus complication detail: with chronic kidney disease Chronic kidney disease stage : stage 3 (moderate) Qualified Code(s): E11.22 - Type 2 diabetes mellitus with diabetic chronic kidney disease; N18.3 - Chronic kidney disease, stage 3 ( moderate) (7) Hyperlipidemia Current Visit: No Status: Chronic Assessment and plan: Continue home meds Qualifiers: Hyperlipidemia type: unspecified Qualified Code(s): E78.5 - Hyperlipidemia , unspecified (8) GERD (gastroesophageal reflux disease) Current Visit: No Status: Chronic Assessment and plan: Continue PPI Qualifiers: Esophagitis presence: with esophagitis Qualified Code(s): K21.0 - Gastro- esophageal reflux disease with esophagitis (9) DVT prophylaxis Current Visit: No Status: Acute Assessment and plan: Heparin subcutaneous TID (10) Hypercalcemia Current Visit: Yes Status: Acute Assessment and plan: Calcium level 12.1 in the setting of CKD stage III PTH 26.3 on 04/19/18 Continue IV fluids Continue monitoring - Time Spent With Patient Total time spent is greater than 50% in coordination of care (as documented) at patient's floor/unit and/or counseling patient: <Uday Mak P - Last Filed: 06/03/18 05:40> Date of Encounter: 06/03/18 Internal Medicine - H&P: HPI History of present illness: Ms. Montes is a 83 year old female All Systems PM: A 10-system review of systems was performed and is negative for pertinent findings except as documented above in the HPI. - Constitutional Vitals: Temp Pulse Resp BP Pulse Ox 98.2 F 98 22 139/71 96 06/03/18 03:26 06/03/18 03:26 06/03/18 04:33 06/03/18 03:26 06/03/18 04:33 Internal Med - H&P Results - Labs CBC & Chem 7: 06/02/18 23:08 06/02/18 23:08 - Attending Attestation I have seen patient and performed my own history and physical examination. I have discussed the case with the admitting resident physician, and I agree with his assessment and plan of care as documented in his H&P. Briefly, patient presented with worsening dyspnea. She was admitted for acute on chronic respiratory failure with hypoxia likely secondary to acute exacerbation of COPD and possible pneumonia. We will admit as inpatient and continue IV rocephin, IV solumedrol, and scheduled duonebs. Will monitor CKD with gentle hydration and repeat labwork in AM. She had some hyperglycemia after receiving steroids; will start sliding scale insulin and will start steroid taper with improvement. Patient is in no distress at this time with oxygen saturations in 90s on her home 3L NC. - Assessment and plan (1) Type 2 diabetes mellitus Current Visit: Yes Status: Chronic Qualifiers: Diabetes mellitus longterm insulin use: without longterm use Diabetes mellitus complication status: with kidney complications Diabetes mellitus complication detail: with chronic kidney disease Chronic kidney disease stage : stage 3 (moderate) Qualified Code(s): E11.22 - Type 2 diabetes mellitus with diabetic chronic kidney disease; N18.3 - Chronic kidney disease, stage 3 ( moderate) (2) DVT prophylaxis Current Visit: No Status: Acute (3) GERD (gastroesophageal reflux disease) Current Visit: No Status: Chronic Qualifiers: Esophagitis presence: with esophagitis Qualified Code(s): K21.0 - Gastro- esophageal reflux disease with esophagitis (4) Acute exacerbation of chronic obstructive pulmonary disease (COPD) Current Visit: Yes Status: Acute (5) CKD (chronic kidney disease) stage 3, GFR 30-59 ml/min Current Visit: Yes Status: Chronic (6) Anemia Current Visit: Yes Status: Acute Qualifiers: Anemia type: due to chronic kidney disease Chronic kidney disease stage: stage 3 (moderate) Qualified Code(s): N18.3 - Chronic kidney disease, stage 3 (moderate); D63.1 - Anemia in chronic kidney disease (7) Community acquired pneumonia Current Visit: Yes Status: Acute Qualifiers: Laterality: unspecified laterality Qualified Code(s): J18.9 - Pneumonia, unspecified organism (8) Acute and chronic respiratory failure with hypoxia Current Visit: Yes Status: Acute (9) Hyperlipidemia Current Visit: No Status: Chronic Qualifiers: Hyperlipidemia type: unspecified Qualified Code(s): E78.5 - Hyperlipidemia , unspecified (10) Hypercalcemia Current Visit: Yes Status: Acute - Time Spent With Patient Total time spent is greater than 50% in coordination of care (as documented) at patient's floor/unit and/or counseling patient:
[2018-06-03] MEDS ORDERED: Ondansetron 4 MG/2 ML VIAL IVP PRN (03:39)
[2018-06-03] MEDS ORDERED: Acetaminophen 325 MG TABLET PO PRN (03:39)
[2018-06-03] MEDS ORDERED: Naloxone 0.4 MG/ML INJ IVP PRN (03:39)
[2018-06-03] MEDS ORDERED: D5% in Water 1,000 ML IVC PRN (03:46)
[2018-06-03] MEDS ORDERED: Dextrose Gel 15 GM/37.5 ML TUBE PO PRN ×2 (03:46)
[2018-06-03] MEDS ORDERED: *HR* Dextrose 50 % in Water (Syg) 50 ML SYRINGE IVP PRN (03:46)
[2018-06-03] MEDS ORDERED: Ipratropium/Albuterol Neb 3 ML IH SCH (04:00)
[2018-06-03] MEDS: 0.9 % Sodium Chloride 1,000 ML IVC SCH ×2 (04:16→17:32)
[2018-06-03] MEDS: MethylPREDNISolone 40 MG/ML VIAL IVP SCH ×4 (05:22→23:04)
[2018-06-03] MEDS: Pantoprazole 40 MG VIAL IVP SCH ×2 (05:23→17:28)
[2018-06-03] MEDS: *HR* Heparin 5,000 UNIT/ML VIAL SQ SCH ×3 (05:26→20:03)
[2018-06-03] MEDS ORDERED: Albuterol 2.5 MG/3 ML NEBULIZER IH PRN (05:30)
[2018-06-03] MEDS: Loratadine 10 MG TABLET PO SCH (05:41)
[2018-06-03 05:53] LABS: Basophils % 0.2 %; Eosinophils # 0.2 K/mcL (0.0-0.6); Eosinophils % 2.4 %; Hematocrit 28.5 % (35.3-44.9); Immature Granulocytes % 0.6 % (0-4); Lymphocytes # 0.9 K/mcL (0.6-4.6); Lymphocytes % 9.3 %; Mean Corpuscular HGB Conc 32.6 g/dL (31.6-35.5); Mean Corpuscular Hemoglobin 29.2 pg (28.0-33.3); Mean Corpuscular Volume 89.6 fL (83.0-100.0); Mean Platelet Volume 10.7 fL (9.4-12.4); Monocytes # 0.2 K/mcL (0.0-1.3); Monocytes % 2.4 %; Neutrophils # 8.4 K/mcL (1.6-8.9); Platelet Count 243 K/mcL (140-400); Red Blood Count 3.18 M/mcL (3.82-4.97); Segmented Neutrophils % 85.1 %
[2018-06-03 05:58] LABS: BUN/Creatinine Ratio 15 (6-26); Blood Urea Nitrogen 29 mg/dL (8-23); Calcium 10.9 mg/dL (8.6-10.3); Carbon Dioxide 21 mEq/L (23-29); Chloride 103 mEq/L (98-107); Glucose 433 mg/dL (70-105); Magnesium 1.5 mg/dL (1.6-2.6); Osmolality,Calculated 306 (280-300); Potassium 3.9 mEq/L (3.5-5.1); Sodium 136 mEq/L (136-145); eGFR For Non-African Americans 25 (> 60)
[2018-06-03] MEDS: Fluticasone Propionate Nasal 50 MCG/SPRAY BOTTLE NS SCH (06:06)
[2018-06-03 06:10] LABS: Hemoglobin 9.3 g/dL (11.5-15.4)
[2018-06-03] MEDS: Ipratropium/Albuterol Neb 3 ML IH SCH ×4 (06:48→21:49)
[2018-06-03] MEDS: Acetylcysteine 10% 2 ML INHSOL IH SCH ×4 (06:49→21:49)
[2018-06-03 06:58] LABS: Troponin I < 0.03 ng/mL (< 0.04)
[2018-06-03] MEDS: Insulin LISPRO 300 UNITS/3 ML VIAL SQ SCH ×5 (07:57→20:02)
[2018-06-03] MEDS ORDERED: *HR* Metformin 500 MG TABLET PO SCH (11:16)
[2018-06-03] MEDS: cefTRIAXone 1,000 MG in Water for inj. (sterile) 20 ML 10 ML IVP SCH (12:46)
--- NOTE | 2018-06-03 15:27 | Internal Med Progress Note ---
Date of Encounter: 06/03/18 Time of Encounter: 15:17 - Assessment and plan (1) Acute and chronic respiratory failure with hypoxia Current Visit: Yes Status: Acute Assessment and plan: SPO2 today and 97% with oxygen on at 2 L continuous to have dyspnea at rest. We will continue with bronchodilators as well as oxygen (2) Type 2 diabetes mellitus Current Visit: Yes Status: Chronic Assessment and plan: Blood sugars are running for 33 today we will start on a basal insulin Levemir and also start with a before meals meal 6 units plus sliding scale. Due to chronic renal failure stage III we will call her metformin with possible discharge discontinuing that medication Qualifiers: Diabetes mellitus long term care administrator insulin use: without custodial use Diabetes mellitus complication status: with kidney complications Diabetes mellitus complication detail: with chronic kidney disease Chronic kidney disease stage : stage 3 (moderate) Qualified Code(s): E11.22 - Type 2 diabetes mellitus with diabetic chronic kidney disease; N18.3 - Chronic kidney disease, stage 3 ( moderate) (3) GERD (gastroesophageal reflux disease) Current Visit: No Status: Chronic Assessment and plan: We will start on Pepcid 20 mg twice a day she continues to have her signs and symptoms Qualifiers: Esophagitis presence: with esophagitis Qualified Code(s): K21.0 - Gastro- esophageal reflux disease with esophagitis (4) Acute exacerbation of chronic obstructive pulmonary disease (COPD) Current Visit: Yes Status: Acute Assessment and plan: We will continue with bronchodilators and oxygen (5) Community acquired pneumonia Current Visit: Yes Status: Acute Assessment and plan: We will continue with IV Rocephin and monitor her CBC, blood c/s pending Qualifiers: Laterality: left Lung location: lower lobe of lung Qualified Code(s): J18.1 - Lobar pneumonia, unspecified organism (6) CKD (chronic kidney disease) stage 3, GFR 30-59 ml/min Current Visit: Yes Status: Chronic Assessment and plan: BUN stable at 29 with creatinine stable at 1.94 GFR 30. We will continue to hold metformin due to last stage III renal failure (7) Anemia Current Visit: Yes Status: Acute Assessment and plan: Anemia probably secondary to chronic renal failure hemoglobin today was down to 9.3 we will continue to monitor daily if drops below 8 will consider transfusion. Qualifiers: Anemia type: due to chronic kidney disease Chronic kidney disease stage: stage 3 (moderate) Qualified Code(s): N18.3 - Chronic kidney disease, stage 3 (moderate); D63.1 - Anemia in chronic kidney disease (8) Hyperlipidemia Current Visit: No Status: Chronic Assessment and plan: Continue home meds Qualifiers: Hyperlipidemia type: unspecified Qualified Code(s): E78.5 - Hyperlipidemia , unspecified (9) Hypercalcemia Current Visit: Yes Status: Acute Assessment and plan: Improvement remains elelvated , will continue to monitor (10) DVT prophylaxis Current Visit: No Status: Acute Assessment and plan: Heparin subcutaneous TID - Time Spent With Patient Total time spent is greater than 50% in coordination of care (as documented) at patient's floor/unit and/or counseling patient: - Subjective Interval history: Mrs. Coley (an 83-year-old female was admitted through the ER for dyspnea COPD acute exacerbation of COPD history of chronic kidney disease, type 2 diabetes, and acute community-acquired pneumonia. She currently using oxygen 2 L per nasal cannula and continues to have mild dyspnea at rest with a tight bronchial cough. Currently she is receiving DuoNeb hand-held nebulizer treatments as well as Solu-Medrol IVP. Chest x-ray was positive for Nonspecific bibasilar reticular opacities ; atypical pneumonia or pulmonary edema. Continue bronchodilators and IV steroid as ordered As a result of the steroid IVP her diabetes and blood sugar has become uncontrolled with glucose of 433. She was taking metformin at home however. Her BUN/creatinine correct decrease to 21 and 29 respectively with GFR of 30, will hold Metformin, tion and start her on sliding scale insulin with a basal insulin. 6 units with meals plus sliding scale and Levemir and daily at bedtime She also is being treated for a urinary tract infection with IV Rocephin 1 g. Urine cultures were negative for Legionella or S pneumoniae, blood cultures are still pending. We will continue with IV Rocephin 1 g as ordered She complains of gastric reflux signs and symptoms will start on Pepcid 20 mg mg twice daily. We will also restart Crestor, and Symbicort. - Constitutional Vitals: Temp Pulse Resp BP Pulse Ox 97.0 F L 76 18 126/70 97 06/03/18 11:04 06/03/18 11:04 06/03/18 15:11 06/03/18 11:04 06/03/18 15:11 General appearance: Present: cooperative, A&O X 3, pleasant, no acute distress, answers questions appropriately - Neck Neck exam general surgery: Present: full ROM - Respiratory Respiratory exam: Present: decreased breath sounds, rhonchi Additional comments: diminished breath sounds bibasilar . right > left. dry hacking cough with movement (turning to side) and deep breath. - Cardiovascular Cardiovascular exam: Present: RRR - GI/Abdominal GI/Abdominal exam: Present: normal bowel sounds, soft Internal Medicine: Result - Labs CBC & Chem 7: 06/03/18 05:03 06/03/18 05:03 - Pulse Oximetry Interpretation Digit-Finger Pulse Oximetry Readin (continue with oxygen @2LPM) Consult Discharge Plan - Plan Referrals: Beverly Watson MD [Primary Care Provider] -
[2018-06-03] MEDS: Budesonide/Formoterol 80/4.5 MDI IH SCH ×2 (17:55→21:49)
[2018-06-03] MEDS: Famotidine 20 MG TABLET PO SCH (20:03)
[2018-06-03] MEDS ORDERED: Insulin DETEMIR 100 UNIT/ML X5UNITS SQ SCH (21:00)
[2018-06-04] MEDS: Ipratropium/Albuterol Neb 3 ML IH SCH ×4 (03:56→22:01)
[2018-06-04] MEDS: Acetylcysteine 10% 2 ML INHSOL IH SCH ×4 (03:56→22:02)
[2018-06-04] MEDS: *HR* Heparin 5,000 UNIT/ML VIAL SQ SCH ×3 (06:01→19:45)
[2018-06-04] MEDS: Pantoprazole 40 MG VIAL IVP SCH (06:01)
[2018-06-04] MEDS: MethylPREDNISolone 40 MG/ML VIAL IVP SCH ×4 (06:01→23:07)
[2018-06-04] MEDS: cefTRIAXone 1,000 MG in Water for inj. (sterile) 20 ML 10 ML IVP SCH (08:32)
[2018-06-04] MEDS: Famotidine 20 MG TABLET PO SCH ×2 (08:33→19:45)
[2018-06-04] MEDS: Loratadine 10 MG TABLET PO SCH (08:33)
[2018-06-04] MEDS: Fluticasone Propionate Nasal 50 MCG/SPRAY BOTTLE NS SCH (08:34)
[2018-06-04] MEDS: Insulin LISPRO 300 UNITS/3 ML VIAL SQ SCH ×7 (08:34→20:00)
[2018-06-04] MEDS ORDERED: cefTRIAXone 1,000 MG in Water for inj. (sterile) 20 ML 10 ML IVP SCH (09:00)
[2018-06-04] MEDS ORDERED: Denosumab 60 MG/ML SYRINGE SQ SCH (10:00)
[2018-06-04] MEDS: Budesonide/Formoterol 80/4.5 MDI IH SCH ×2 (10:01→22:01)
[2018-06-04] MEDS: Azithromycin 500 MG in D5% in Water 250 ML IVPB SCH (11:56)
[2018-06-04 13:23] LABS: Basophils % 0.1 %; Eosinophils % 0.1 %; Hematocrit 28.4 % (35.3-44.9); Hemoglobin 9.2 g/dL (11.5-15.4); Immature Granulocytes % 1.7 % (0-4); Lymphocytes # 1.8 K/mcL (0.6-4.6); Lymphocytes % 12.6 %; Mean Corpuscular HGB Conc 32.4 g/dL (31.6-35.5); Mean Corpuscular Hemoglobin 28.8 pg (28.0-33.3); Mean Platelet Volume 10.4 fL (9.4-12.4); Monocytes # 0.6 K/mcL (0.0-1.3); Monocytes % 4.4 %; Neutrophils # 11.2 K/mcL (1.6-8.9); Platelet Count 229 K/mcL (140-400); Red Blood Count 3.19 M/mcL (3.82-4.97); Red Cell Distribution Width 14.1 % (11.5-14.5); Segmented Neutrophils % 81.1 %
--- NOTE | 2018-06-04 13:50 | Internal Med Progress Note ---
Date of Encounter: 06/04/18 Time of Encounter: 13:44 - Assessment and plan (1) Hypercalcemia Current Visit: Yes Status: Acute Assessment and plan: Improvement remains elelvated , will continue to monitor (2) Acute and chronic respiratory failure with hypoxia Current Visit: Yes Status: Acute Assessment and plan: SPO2 today and 97% with oxygen on at 2 L continuous to have dyspnea at rest. We will continue with bronchodilators as well as oxygen (3) Community acquired pneumonia Current Visit: Yes Status: Acute Assessment and plan: We will continue with IV Rocephin/ Zithromax and monitor her CBC, blood c/s pending Qualifiers: Laterality: left Lung location: lower lobe of lung Qualified Code(s): J18.1 - Lobar pneumonia, unspecified organism (4) Acute exacerbation of chronic obstructive pulmonary disease (COPD) Current Visit: Yes Status: Acute Assessment and plan: We will continue with bronchodilators and oxygen (5) Type 2 diabetes mellitus Current Visit: Yes Status: Chronic Assessment and plan: Blood sugars are running for 33 today we will start on a basal insulin Levemir and also start with a before meals meal 6 units plus sliding scale. Due to chronic renal failure stage III we will hold metformin with possible discharge discontinuing that medication Qualifiers: Diabetes mellitus skilled nursing insulin use: without predatory animal exterminator use Diabetes mellitus complication status: with kidney complications Diabetes mellitus complication detail: with chronic kidney disease Chronic kidney disease stage : stage 3 (moderate) Qualified Code(s): E11.22 - Type 2 diabetes mellitus with diabetic chronic kidney disease; N18.3 - Chronic kidney disease, stage 3 ( moderate) (6) DVT prophylaxis Current Visit: No Status: Acute Assessment and plan: Heparin subcutaneous TID (7) GERD (gastroesophageal reflux disease) Current Visit: No Status: Chronic Qualifiers: Esophagitis presence: with esophagitis Qualified Code(s): K21.0 - Gastro- esophageal reflux disease with esophagitis (8) CKD (chronic kidney disease) stage 3, GFR 30-59 ml/min Current Visit: Yes Status: Chronic Assessment and plan: BUN stable at 29 with creatinine stable at 1.94 GFR 30. We will continue to hold metformin due to stage III renal failure (9) Anemia Current Visit: Yes Status: Acute Assessment and plan: Anemia probably secondary to chronic renal failure hemoglobin today was down to 9.3 we will continue to monitor daily if drops below 7 will consider transfusion. Qualifiers: Anemia type: due to chronic kidney disease Chronic kidney disease stage: stage 3 (moderate) Qualified Code(s): N18.3 - Chronic kidney disease, stage 3 (moderate); D63.1 - Anemia in chronic kidney disease (10) Hyperlipidemia Current Visit: No Status: Chronic Assessment and plan: Continue home meds Qualifiers: Hyperlipidemia type: unspecified Qualified Code(s): E78.5 - Hyperlipidemia , unspecified - Time Spent With Patient Total time spent is greater than 50% in coordination of care (as documented) at patient's floor/unit and/or counseling patient: Greater than 35 minutes - Subjective Interval history: Pt reported improved respiratory symptoms. - Constitutional Vitals: Temp Pulse Resp BP Pulse Ox 98.4 F 84 20 115/62 95 06/04/18 11:41 06/04/18 11:41 06/04/18 11:41 06/04/18 11:41 06/04/18 11:41 General appearance: Present: cooperative, A&O X 3, pleasant, no acute distress, answers questions appropriately Exam: PHYSICAL EXAMINATION: GENERAL APPEARANCE: The patient is alert, oriented and in no acute distress. HEENT: Head is normocephalic. The sinuses are nontender. Pupils are equal and reactive. The nares are patent. Oropharynx clear without lesions. NECK: Supple without lymphadenopathy. HEART: Regular rate and rhythm. LUNGS: No crackles or wheezes are heard. ABDOMEN: Soft, nontender, nondistended with good bowel sounds heard. Inguinal area is normal. EXTREMITIES: Without cyanosis, clubbing or edema. NEUROLOGICAL: Gross nonfocal. SKIN: Warm and dry without any rash. Internal Medicine: Result - Labs CBC & Chem 7: 06/04/18 13:15 06/03/18 05:03 Labs: Short CBC 06/04/18 Range/Units 13:15 WBC 13.9 H (4.3-11.1) K/mcL Hgb 9.2 L (11.5-15.4) g/dL Hct 28.4 L (35.3-44.9) % Plt Count 229 (140-400) K/mcL Neutrophils # 11.2 H (1.6-8.9) K/mcL Consult Discharge Plan - Plan Referrals: Beverly Watson MD [Primary Care Provider] -
[2018-06-04] MEDS: Insulin DETEMIR 100 UNIT/ML X5UNITS SQ SCH (20:01)
[2018-06-05] MEDS: Ipratropium/Albuterol Neb 3 ML IH SCH ×4 (03:38→22:53)
[2018-06-05] MEDS: Acetylcysteine 10% 2 ML INHSOL IH SCH ×4 (03:38→22:53)
[2018-06-05 04:43] LABS: Basophils % 0.1 %; Hematocrit 27.8 % (35.3-44.9); Immature Granulocytes % 4.8 % (0-4); Lymphocytes # 1.9 K/mcL (0.6-4.6); Lymphocytes % 15.1 %; Mean Corpuscular HGB Conc 32.4 g/dL (31.6-35.5); Mean Corpuscular Hemoglobin 29.1 pg (28.0-33.3); Mean Platelet Volume 9.9 fL (9.4-12.4); Monocytes # 0.5 K/mcL (0.0-1.3); Monocytes % 3.6 %; Neutrophils # 9.5 K/mcL (1.6-8.9); Platelet Count 325 K/mcL (140-400); Red Blood Count 3.09 M/mcL (3.82-4.97); Red Cell Distribution Width 14.1 % (11.5-14.5); Segmented Neutrophils % 76.4 %
[2018-06-05 05:04] LABS: Calcium 10.1 mg/dL (8.6-10.3); Potassium 4.2 mEq/L (3.5-5.1)
[2018-06-05] MEDS: *HR* Heparin 5,000 UNIT/ML VIAL SQ SCH ×3 (06:00→20:05)
[2018-06-05] MEDS: MethylPREDNISolone 40 MG/ML VIAL IVP SCH ×2 (06:00→12:04)
[2018-06-05] MEDS: Loratadine 10 MG TABLET PO SCH (08:14)
[2018-06-05] MEDS: Anastrozole 1 MG TABLET PO SCH (08:14)
[2018-06-05] MEDS: Cyanocobalamin (B-12) 1,000 MCG TABLET PO SCH (08:14)
[2018-06-05] MEDS: Insulin LISPRO 300 UNITS/3 ML VIAL SQ SCH ×7 (08:15→21:27)
[2018-06-05] MEDS: Fluticasone Propionate Nasal 50 MCG/SPRAY BOTTLE NS SCH (08:16)
[2018-06-05] MEDS: cefTRIAXone 1,000 MG in Water for inj. (sterile) 20 ML 10 ML IVP SCH (08:17)
[2018-06-05] MEDS: Multivit/Ca/Min/Fe/FA 1 TAB TABLET PO SCH (08:18)
[2018-06-05] MEDS: Azithromycin 500 MG in D5% in Water 250 ML IVPB SCH (08:21)
[2018-06-05] MEDS: Budesonide/Formoterol 80/4.5 MDI IH SCH ×2 (08:36→22:52)
--- NOTE | 2018-06-05 16:12 | Internal Med Progress Note ---
Hospitalist Progress Note - Encounter Date of Encounter: 06/05/18 Time of Encounter: 16:08 - Subjective Interval History: Pt reported improved respiratory symptoms. - Exam Vitals: Temp Pulse Resp BP Pulse Ox 98.7 F 83 18 148/74 93 06/05/18 15:37 06/05/18 15:37 06/05/18 15:54 06/05/18 15:37 06/05/18 15:54 Exam: PHYSICAL EXAMINATION: GENERAL APPEARANCE: The patient is alert, oriented and in no acute distress. HEENT: Head is normocephalic. The sinuses are nontender. Pupils are equal and reactive. The nares are patent. Oropharynx clear without lesions. NECK: Supple without lymphadenopathy. HEART: Regular rate and rhythm. LUNGS: No crackles or wheezes are heard. ABDOMEN: Soft, nontender, nondistended with good bowel sounds heard. Inguinal area is normal. EXTREMITIES: Without cyanosis, clubbing or edema. NEUROLOGICAL: Gross nonfocal. SKIN: Warm and dry without any rash. - Assessment and Plan (1) Community acquired pneumonia Current Visit: Yes Status: Acute Assessment and Plan: CXR showed possible PNA, urine for Legonella and streppneumon were negative. Continue IV abx with rocephin and Azithromycin, plan change to oral tomorrow. (2) Acute and chronic respiratory failure with hypoxia Current Visit: Yes Status: Acute Assessment and Plan: Pt respiratory symptoms have improved. change IV steroid to oral, continue bronchodilators. (3) Acute exacerbation of chronic obstructive pulmonary disease (COPD) Current Visit: Yes Status: Acute Assessment and Plan: same as above. (4) Hypercalcemia Current Visit: Yes Status: Resolved Assessment and Plan: normal today after IVF. (5) Type 2 diabetes mellitus Current Visit: Yes Status: Chronic Assessment and Plan: continue current insulin regimen. (6) GERD (gastroesophageal reflux disease) Current Visit: No Status: Chronic Assessment and Plan: continue current treatment. (7) CKD (chronic kidney disease) stage 3, GFR 30-59 ml/min Current Visit: Yes Status: Chronic (8) Anemia Current Visit: Yes Status: Acute Assessment and Plan: stable. occult blood test negative, continue monitoring. (9) Hyperlipidemia Current Visit: No Status: Chronic Assessment and Plan: Continue home meds (10) DVT prophylaxis Current Visit: No Status: Acute Assessment and Plan: Heparin subcutaneous TID - Time Spent with Patient Total time spent is greater than 50% in coordination of care (as documented) at patient's floor/unit and/or counseling patient: Internal Medicine: Result - Labs CBC & Chem 7: 06/05/18 04:04 06/05/18 04:04 Labs: Short CBC 06/05/18 Range/Units 04:04 WBC 12.4 H (4.3-11.1) K/mcL Hgb 9.0 L (11.5-15.4) g/dL Hct 27.8 L (35.3-44.9) % Plt Count 325 (140-400) K/mcL Neutrophils # 9.5 H (1.6-8.9) K/mcL BMP 06/05/18 04:04 Sodium 138 Potassium 4.2 Chloride 109 H Carbon Dioxide 21 L BUN 47 H Creatinine 1.64 H Glucose 185 H Calcium 10.1 Consult Discharge Plan - Plan Referrals: Beverly Watson MD [Primary Care Provider] - (1) Community acquired pneumonia Qualifiers: Laterality: left Lung location: lower lobe of lung Qualified Code(s): J18.1 - Lobar pneumonia, unspecified organism (5) Type 2 diabetes mellitus Qualifiers: Diabetes mellitus director of dementia operations insulin use: without director of dementia operations use Diabetes mellitus complication status: with kidney complications Diabetes mellitus complication detail: with chronic kidney disease Chronic kidney disease stage: stage 3 (moderate) Qualified Code(s): E11.22 - Type 2 diabetes mellitus with diabetic chronic kidney disease; N18.3 - Chronic kidney disease, stage 3 ( moderate) (6) GERD (gastroesophageal reflux disease) Qualifiers: Esophagitis presence: with esophagitis Qualified Code(s): K21.0 - Gastro- esophageal reflux disease with esophagitis (8) Anemia Qualifiers: Anemia type: due to chronic kidney disease Chronic kidney disease stage: stage 3 (moderate) Qualified Code(s): N18.3 - Chronic kidney disease, stage 3 ( moderate); D63.1 - Anemia in chronic kidney disease (9) Hyperlipidemia Qualifiers: Hyperlipidemia type: unspecified Qualified Code(s): E78.5 - Hyperlipidemia, unspecified
[2018-06-05] MEDS ORDERED: Ipratropium/Albuterol Neb 3 ML IH PRN (16:17)
--- NOTE | 2018-06-05 17:45 | Electrocardiograph Report ---
[address] [place] [address] Test Date: 2018-06-02 Pat Name: Vianca Montes Department: 104 Room: 3B63 Gender: F Auditor/Quality: NATAN : 1935 Requested By: Abdon Baker Order Number: [id number] Reading MD: Lydia Gonzales Measurements Intervals [place] Rate: 85 P: 70 NE: 143 QRS: 28 QRSD: 100 T: 57 QT: 352 QTc: 394 Interpretive Statements SINUS RHYTHM Electronically Signed On 06-05-2018 17:43:45 EDT by Lydia Gonzales
[2018-06-05] MEDS: Famotidine 20 MG TABLET PO SCH (20:04)
[2018-06-05] MEDS: Insulin DETEMIR 100 UNIT/ML X5UNITS SQ SCH (22:01)
[2018-06-06] MEDS: Acetylcysteine 10% 2 ML INHSOL IH SCH ×4 (03:49→21:42)
[2018-06-06] MEDS: Ipratropium/Albuterol Neb 3 ML IH SCH ×4 (03:49→21:42)
[2018-06-06 04:51] LABS: Hematocrit 26.5 % (35.3-44.9); Hemoglobin 8.5 g/dL (11.5-15.4); Mean Corpuscular HGB Conc 32.1 g/dL (31.6-35.5); Mean Corpuscular Hemoglobin 28.3 pg (28.0-33.3); Mean Corpuscular Volume 88.3 fL (83.0-100.0); Mean Platelet Volume 9.5 fL (9.4-12.4); Platelet Count 345 K/mcL (140-400); Red Cell Distribution Width 14.1 % (11.5-14.5)
[2018-06-06 05:12] LABS: Calcium 10.1 mg/dL (8.6-10.3); Potassium 3.9 mEq/L (3.5-5.1)
[2018-06-06 05:36] LABS: Lymphocytes # 4.2 K/mcL (0.6-4.6); Monocytes # 0.8 K/mcL (0.0-1.3); Neutrophils # 7.9 K/mcL (1.6-8.9); Platelet Estimate Normal (Normal); Reactive Lymphocytes Present (Not Present)
[2018-06-06] MEDS: *HR* Heparin 5,000 UNIT/ML VIAL SQ SCH ×3 (05:52→21:43)
[2018-06-06] MEDS: Insulin LISPRO 300 UNITS/3 ML VIAL SQ SCH ×7 (08:27→22:00)
[2018-06-06] MEDS: Cyanocobalamin (B-12) 1,000 MCG TABLET PO SCH (08:28)
[2018-06-06] MEDS: Loratadine 10 MG TABLET PO SCH (08:29)
[2018-06-06] MEDS: Multivit/Ca/Min/Fe/FA 1 TAB TABLET PO SCH (08:29)
[2018-06-06] MEDS: cefTRIAXone 1,000 MG in Water for inj. (sterile) 20 ML 10 ML IVP SCH (08:29)
[2018-06-06] MEDS: Anastrozole 1 MG TABLET PO SCH (08:29)
[2018-06-06] MEDS: predniSONE 20 MG TABLET PO SCH (08:29)
[2018-06-06] MEDS: Fluticasone Propionate Nasal 50 MCG/SPRAY BOTTLE NS SCH (08:36)
[2018-06-06] MEDS: Azithromycin 500 MG in D5% in Water 250 ML IVPB SCH (08:40)
[2018-06-06] MEDS: Budesonide/Formoterol 80/4.5 MDI IH SCH ×2 (10:36→21:43)
--- NOTE | 2018-06-06 12:11 | Internal Med Progress Note ---
Hospitalist Progress Note - Encounter Date of Encounter: 06/06/18 Time of Encounter: 12:11 - Subjective Interval History: Patient was seen and examined at bedside denies any pain or discomfort at this time-she is sitting in a chair alert appropriate following simple commands. I did discuss with daughter concerning discharge planning. There are did voice concerns about patient did not consuming enough water. Did encourage patient to drink water verbalized understanding. - Exam Vitals: Temp Pulse Resp BP Pulse Ox 98.3 F 68 16 161/92 94 06/06/18 08:19 06/06/18 08:19 06/06/18 10:35 06/06/18 08:19 06/06/18 10:35 Exam: General appearance: Present: A&O X 3, pleasant, no acute distress - Head Head exam: Present: atraumatic, normal inspection - Eye Eye exam: Present: normal appearance, conjuntiva pink - Respiratory Respiratory exam: Present: wheezes (Bilaterally and diffuse worsened in upper lobes). Absent: rales, respiratory distress - Cardiovascular Cardiovascular exam: Present: +S1, +S2, tachycardia. Absent: systolic murmur - GI/Abdominal GI/Abdominal exam: Present: normal bowel sounds, soft. Absent: firm, guarding, tenderness - Extremities Exam Extremities exam: Absent: mottling, pedal edema, tenderness - Back Exam Back exam: Absent: rash noted - Neurological Exam Neurological exam: Present: alert, oriented X3 - Psychiatric Psychiatric exam: Present: normal affect, normal mood - Skin Skin exam: Present: dry, intact - Assessment and Plan (1) Community acquired pneumonia Current Visit: Yes Status: Acute Assessment and Plan: CXR showed possible PNA, urine for Legonella and streppneumon were negative. Continue IV abx with rocephin and Azithromycin We will evaluate by PT OT for possible discharge planning (2) Acute exacerbation of chronic obstructive pulmonary disease (COPD) Current Visit: Yes Status: Acute Assessment and Plan: Continue with bronchodilators as well as steroids taper Oxygen as needed Continue with azithromycin as well as Rocephin (3) Type 2 diabetes mellitus Current Visit: Yes Status: Chronic Assessment and Plan: continue Accu-Cheks before meals at bedtime was sinus scale insulin as well as basal Diabetic diet (4) DVT prophylaxis Current Visit: No Status: Acute Assessment and Plan: Heparin subcutaneous TID (5) GERD (gastroesophageal reflux disease) Current Visit: No Status: Chronic Assessment and Plan: continue Pepcid (6) CKD (chronic kidney disease) stage 3, GFR 30-59 ml/min Current Visit: Yes Status: Chronic Assessment and Plan: Creatinine stable at this time 1.70 with continue to monitor Monitor intake and output daily weights Avoid nephrotoxins (7) Anemia Current Visit: Yes Status: Acute Assessment and Plan: stable. occult blood test negative, continue monitoring. (8) Acute and chronic respiratory failure with hypoxia Current Visit: Yes Status: Acute (9) Hyperlipidemia Current Visit: No Status: Chronic (10) Hypercalcemia Current Visit: Yes Status: Resolved - Time Spent with Patient Total time spent is greater than 50% in coordination of care (as documented) at patient's floor/unit and/or counseling patient: Internal Medicine: Result - Labs CBC & Chem 7: 06/06/18 04:29 06/06/18 04:29 Labs: Short CBC 06/06/18 Range/Units 04:29 WBC 13.1 H (4.3-11.1) K/mcL Hgb 8.5 L (11.5-15.4) g/dL Hct 26.5 L (35.3-44.9) % Plt Count 345 (140-400) K/mcL Neutrophils # 7.9 (1.6-8.9) K/mcL BMP 06/06/18 04:29 Sodium 139 Potassium 3.9 Chloride 110 H Carbon Dioxide 20 L BUN 49 H Creatinine 1.70 H Glucose 116 H Calcium 10.1 Consult Discharge Plan - Plan Instructions: Urinary Tract Infection in Women (DC) Additional Instructions: Follow-up appointments: If there is not an appointment listed below, please call your physician and schedule a follow-up appointment. If you have congestive heart failure and your symptoms return, make an appointment with your physician. Medication List: Carry an up to date list of medications you are taking at all time. We have given you an updated medication list including any new medications that you have been prescribed. Please provide that list to your primary provider Symptoms: If your condition changes or you experience any of the following symptoms, notify your physician immediately: Unusual or worsening pain, fever, persistent nausea and vomiting, bleeding, increase in swelling (especially in your legs), sudden weight gain, extreme dizziness, chest pain, increased drainage or redness from a wound or incision. Go to the emergency department if you experience a problem with breathing. Weights: If you have a history of swelling or shortness of breath, weigh yourself daily and notify your physician if you have a weight gain of two or more pounds in one day or 5 or more pounds in a week. If you experience any of the warning signs for stroke: Sudden numbness or weakness of the face, arm or leg; especially on one side of the body, sudden confusion, trouble speaking or understanding, sudden trouble seeing in one or both eyes, sudden trouble walking, dizziness, loss of balance or coordination, sudden sever headache with no cause; Call 911 or go to the emergency room. Stroke is a medical emergency. Some risk factors for stroke: Age, cigarette smoking, diabetes, excessive alcohol consumption, family history , high blood pressure, overweight, physical inactivity, prior stroke, heart attack, diagnosis of carotid artery stenosis or other artery disease. If you smoke, STOP: Smoking or tobacco use significantly increases your risk of heart and lung disease. Your chance of disease greatly increases if you continue to smoke. For more information, call the [place] tobacco quit line for smoking cessation NOW ( ) Referrals: Beverly Watson MD [Primary Care Provider] - (1) Community acquired pneumonia Qualifiers: Laterality: left Lung location: lower lobe of lung Qualified Code(s): J18.1 - Lobar pneumonia, unspecified organism (3) Type 2 diabetes mellitus Qualifiers: Diabetes mellitus detention insulin use: without termite control service representative use Diabetes mellitus complication status: with kidney complications Diabetes mellitus complication detail: with chronic kidney disease Chronic kidney disease stage: stage 3 (moderate) Qualified Code(s): E11.22 - Type 2 diabetes mellitus with diabetic chronic kidney disease; N18.3 - Chronic kidney disease, stage 3 ( moderate) (5) GERD (gastroesophageal reflux disease) Qualifiers: Esophagitis presence: with esophagitis Qualified Code(s): K21.0 - Gastro- esophageal reflux disease with esophagitis (7) Anemia Qualifiers: Anemia type: due to chronic kidney disease Chronic kidney disease stage: stage 3 (moderate) Qualified Code(s): N18.3 - Chronic kidney disease, stage 3 ( moderate); D63.1 - Anemia in chronic kidney disease (9) Hyperlipidemia Qualifiers: Hyperlipidemia type: unspecified Qualified Code(s): E78.5 - Hyperlipidemia, unspecified
[2018-06-06] MEDS: Insulin DETEMIR 100 UNIT/ML X5UNITS SQ SCH (21:42)
[2018-06-06] MEDS: Famotidine 20 MG TABLET PO SCH (21:43)
[2018-06-07] MEDS: Ipratropium/Albuterol Neb 3 ML IH SCH ×2 (03:47→09:38)
[2018-06-07] MEDS: Acetylcysteine 10% 2 ML INHSOL IH SCH ×2 (03:47→09:38)
[2018-06-07 05:01] LABS: Hematocrit 28.4 % (35.3-44.9); Hemoglobin 9.2 g/dL (11.5-15.4); Mean Corpuscular HGB Conc 32.4 g/dL (31.6-35.5); Mean Corpuscular Hemoglobin 28.4 pg (28.0-33.3); Mean Corpuscular Volume 87.7 fL (83.0-100.0); Mean Platelet Volume 9.9 fL (9.4-12.4); Platelet Count 380 K/mcL (140-400); Red Blood Count 3.24 M/mcL (3.82-4.97); Red Cell Distribution Width 14.2 % (11.5-14.5)
[2018-06-07 05:20] LABS: Calcium 9.9 mg/dL (8.6-10.3); Potassium 3.8 mEq/L (3.5-5.1)
[2018-06-07 06:07] LABS: Lymphocytes # 4.8 K/mcL (0.6-4.6); Monocytes # 1.9 K/mcL (0.0-1.3); Neutrophils # 6.7 K/mcL (1.6-8.9); Platelet Estimate Normal (Normal); Reactive Lymphocytes Present (Not Present)
[2018-06-07] MEDS: *HR* Heparin 5,000 UNIT/ML VIAL SQ SCH ×2 (06:31→14:05)
[2018-06-07] MEDS: Insulin LISPRO 300 UNITS/3 ML VIAL SQ SCH ×4 (08:52→12:30)
[2018-06-07] MEDS ORDERED: Azithromycin 250 MG TABLET PO SCH (09:00)
[2018-06-07] MEDS: Loratadine 10 MG TABLET PO SCH (09:03)
[2018-06-07] MEDS: Anastrozole 1 MG TABLET PO SCH (09:03)
[2018-06-07] MEDS: Fluticasone Propionate Nasal 50 MCG/SPRAY BOTTLE NS SCH (09:04)
[2018-06-07] MEDS: Multivit/Ca/Min/Fe/FA 1 TAB TABLET PO SCH (09:05)
[2018-06-07] MEDS: Cyanocobalamin (B-12) 1,000 MCG TABLET PO SCH (09:05)
[2018-06-07] MEDS: predniSONE 20 MG TABLET PO SCH (09:05)
[2018-06-07] MEDS: Budesonide/Formoterol 80/4.5 MDI IH SCH (09:38)
[2018-06-07 11:39] VITALS: BP 153/80
--- NOTE | 2018-06-07 13:59 | Discharge Summary ---
- NOTES TO OUTPATIENT PROVIDER Notes to Outpatient Provider: Steroid taper continue with azithromycin Date of Encounter: 06/07/18 Time of Encounter: 13:56 - Discharge Diagnosis (1) Community acquired pneumonia Priority: Primary Status: Acute Qualifiers: Laterality: left Lung location: lower lobe of lung Qualified Code(s): J18.1 - Lobar pneumonia, unspecified organism (2) Acute exacerbation of chronic obstructive pulmonary disease (COPD) Priority: Secondary Status: Acute (3) Type 2 diabetes mellitus Priority: Secondary Status: Chronic Qualifiers: Diabetes mellitus correction insulin use: without middle or intermediate school principal use Diabetes mellitus complication status: with kidney complications Diabetes mellitus complication detail: with chronic kidney disease Chronic kidney disease stage : stage 3 (moderate) Qualified Code(s): E11.22 - Type 2 diabetes mellitus with diabetic chronic kidney disease; N18.3 - Chronic kidney disease, stage 3 ( moderate) (4) GERD (gastroesophageal reflux disease) Priority: Secondary Status: Chronic Qualifiers: Esophagitis presence: with esophagitis Qualified Code(s): K21.0 - Gastro- esophageal reflux disease with esophagitis (5) CKD (chronic kidney disease) stage 3, GFR 30-59 ml/min Priority: Secondary Status: Chronic (6) Anemia Priority: Secondary Status: Acute Qualifiers: Anemia type: due to chronic kidney disease Chronic kidney disease stage: stage 3 (moderate) Qualified Code(s): N18.3 - Chronic kidney disease, stage 3 (moderate); D63.1 - Anemia in chronic kidney disease (7) Acute and chronic respiratory failure with hypoxia Priority: Secondary Status: Acute (8) Hyperlipidemia Priority: Secondary Status: Chronic Qualifiers: Hyperlipidemia type: unspecified Qualified Code(s): E78.5 - Hyperlipidemia , unspecified (9) Hypercalcemia Priority: Secondary Status: Resolved Hospital course: Ms. Montes is a 83 year old female past Meck[place] history COPD on 3 L of O2 at baseline CPAP at night diabetes type 2 breast cancer CK D stage III and GERD who presented from home via EMS complaining of difficulty breathing. Previously she had been treated with antibiotics for 7 days for the urinary tract infection. Chest x-ray revealed nonspecific bibasilar reticular opacities which could represent atypical pneumonia or pulmonary edema. Urine Legionella and strep pneumonia were negative. She was started on IV Rocephin as well as azithromycin placed on bronchodilators and steroids. Respiratory state did improve. She is slightly by PT OT who recommended SNF/ECF placement. [facility] She will continue with a prednisone taper as well as Zithromax for another 2 days. She is hemodynamically stable this time is ready for discharge. Discharge discussed with: patient - Time Spent with Patient Total time spent providing and/or coordinating discharge services: - Discharge Medications Prescriptions: Azithromycin 250 mg PO DAILY #6 tablet predniSONE [PredniSONE] 10 mg PO DAILY #25 tablet Home Medications: Anastrozole [Arimidex] 1 mg PO DAILY 07/20/16 [History] Denosumab [Prolia (For Outpatient Infusion)] 60 mg SQ [id number] 07/20/16 [History ] Fluticasone Propionate Nasal [Flonase] 2 spr NS DAILY PRN 07/20/16 [History] Ipratropium/Albuterol Sulfate [Combivent Respimat Inhal [place]] 1 puff IH QID PRN 07/20/16 [History] Loratadine [Claritin] 10 mg PO DAILY PRN 07/20/16 [History] Pantoprazole Sodium [Protonix] 40 mg PO DAILY PRN 07/20/16 [History] Ranitidine HCl [Heartburn Relief] 150 mg PO HS 07/20/16 [History] Albuterol Sulfate [Proair Hfa] 2 puff IH Q4H PRN 02/11/17 [History] Rosuvastatin [Crestor] 40 mg PO HS 02/11/17 [History] Sennosides/Docusate Sodium [Senna-Docusate Sodium Tablet] 1 each PO BID PRN [History] Budesonide/Formoterol 160/4.5 [Symbicort 160/4.5] 2 puff IH DAILY 11/20/17 [ History] Duloxetine HCl [Cymbalta] 60 mg PO DAILY 11/21/17 [History] Albuterol Neb [Proventil Neb] 2.5 mg IH Q4H 04/07/18 [History] Biotin 5,000 mcg PO DAILY 04/07/18 [History] Cholecalciferol (Vitamin D3) [Vitamin D3] 5,000 unit PO DAILY 04/07/18 [History] Cyanocobalamin (Vitamin B-12) [Vitamin B12] 1,000 mcg PO DAILY 04/07/18 [History ] Multivitamin [One Daily Multivitamin] 1 each PO DAILY 04/07/18 [History] Polyethylene Glycol 3350 [MiraLAX] 17 gm PO DAILY PRN 04/07/18 [History] Tiotropium [Spiriva] 2 puff IH DAILY 04/07/18 [History] Metformin HCl [Metformin HCl ER] 500 mg PO DAILY 06/03/18 [History] Azithromycin 250 mg PO DAILY #6 tablet 06/07/18 [Rx] predniSONE [PredniSONE] 10 mg PO DAILY #25 tablet 06/07/18 [Rx] Allergies/Adverse Reactions: 3 Allergy/AdvReac Type Severity Reaction Status Date / Time alendronate sodium Allergy See Verified 09/01/17 13:05 [From Fosamax] Comments pregabalin [From Lyrica] Allergy Swelling Verified 09/01/17 13:05 of Lip/Tongue/Throat RISSA Inhibitors AdvReac Cough Verified 09/01/17 13:05 acetaminophen [From Percocet] AdvReac Nausea Verified 09/01/17 13:05 clarithromycin [From Biaxin] AdvReac Nausea Verified 09/01/17 13:05 lisinopril [From Prinivil] AdvReac Nausea Verified 09/01/17 13:05 Oxycodone [From Percocet] AdvReac Nausea Verified 09/01/17 13:05 red wine Allergy Anaphylaxis Uncoded 09/01/17 13:05 Date of admission: 06/03/18 05:34 Primary care physician: Beverly Watson MD Discharging clinician: Deanna Maurer Anticipated date of discharge: 06/07/18 - Constitutional Vitals: Temp Pulse Resp BP Pulse Ox 98.2 F 74 16 153/80 93 06/07/18 11:38 06/07/18 11:38 06/07/18 11:38 06/07/18 11:38 06/07/18 11:38 General appearance: Present: cooperative, A&O X 3, pleasant, no acute distress, answers questions appropriately - Head Head exam: Present: atraumatic, normocephalic - Eye Eye exam: Present: PERRL, conjuntiva pink, sclera anicteric Pupils: Present: PERRL - Neck Neck exam general surgery: Present: supple, trachea midline. Absent: lymphadenopathy - Respiratory Respiratory exam: Present: CTAB. Absent: accessory muscle use, rales, rhonchi, wheezes - Cardiovascular Cardiovascular exam: Present: RRR, +S1, +S2. Absent: diastolic murmur, gallop, rubs, systolic murmur - GI/Abdominal GI/Abdominal exam: Present: normal bowel sounds, soft, no peritoneal signs. Absent: distended, tenderness - Extremities Exam Extremities exam: Present: warm, radial pulses palpable and symmetrical. Absent : calf tenderness, cyanotic, pedal edema - Neurological Exam Neurological exam: Present: CN II-XII intact, oriented X3, no focal deficits. Absent: pronater drift, facial droop, speech deficit - Skin Skin exam: Present: dry, intact - Patient Status Disposition: Transfer SNF Condition: Good Functional capacity at discharge: uses cane/walker Overall status at discharge: patient is progressing back to baseline - Discharge Instructions Instructions: Urinary Tract Infection in Women (DC) Follow Up With: Beverly Watson MD [Primary Care Provider] - Additional Instructions: Follow-up appointments: If there is not an appointment listed below, please call your physician and schedule a follow-up appointment. If you have congestive heart failure and your symptoms return, make an appointment with your physician. Medication List: Carry an up to date list of medications you are taking at all time. We have given you an updated medication list including any new medications that you have been prescribed. Please provide that list to your primary provider Symptoms: If your condition changes or you experience any of the following symptoms, notify your physician immediately: Unusual or worsening pain, fever, persistent nausea and vomiting, bleeding, increase in swelling (especially in your legs), sudden weight gain, extreme dizziness, chest pain, increased drainage or redness from a wound or incision. Go to the emergency department if you experience a problem with breathing. Weights: If you have a history of swelling or shortness of breath, weigh yourself daily and notify your physician if you have a weight gain of two or more pounds in one day or 5 or more pounds in a week. If you experience any of the warning signs for stroke: Sudden numbness or weakness of the face, arm or leg; especially on one side of the body, sudden confusion, trouble speaking or understanding, sudden trouble seeing in one or both eyes, sudden trouble walking, dizziness, loss of balance or coordination, sudden sever headache with no cause; Call 911 or go to the emergency room. Stroke is a medical emergency. Some risk factors for stroke: Age, cigarette smoking, diabetes, excessive alcohol consumption, family history , high blood pressure, overweight, physical inactivity, prior stroke, heart attack, diagnosis of carotid artery stenosis or other artery disease. If you smoke, STOP: Smoking or tobacco use significantly increases your risk of heart and lung disease. Your chance of disease greatly increases if you continue to smoke. For more information, call the [place] tobacco quit line for smoking cessation - QUIT-NOW ( ) - Diet and Activity Activity: wear oxygen at all times Diet: advance to your usual diet - VTE Documentation of Mechanical Device: Intermittent pneumatic compression device
--- NOTE | 2018-06-07 14:36 | Physician Discharge Referral ---
ExtendedCare Referral Info Transfer To: [facility] Provider in Charge: Deanna Maurer Provider in Charge after Transfer: PCP Institutional Level of Care: Intermediate - Diagnosis (1) Community acquired pneumonia Priority: Primary Status: Acute (2) Acute exacerbation of chronic obstructive pulmonary disease (COPD) Priority: Secondary Status: Acute (3) Type 2 diabetes mellitus Priority: Secondary Status: Chronic (4) GERD (gastroesophageal reflux disease) Priority: Secondary Status: Chronic (5) CKD (chronic kidney disease) stage 3, GFR 30-59 ml/min Priority: Secondary Status: Chronic (6) Anemia Priority: Secondary Status: Acute (7) Acute and chronic respiratory failure with hypoxia Priority: Secondary Status: Acute (8) Hyperlipidemia Priority: Secondary Status: Chronic (9) Hypercalcemia Priority: Secondary Status: Resolved - Transfer Medications Prescriptions: Azithromycin 250 mg PO DAILY #6 tablet predniSONE [PredniSONE] 10 mg PO DAILY #25 tablet Home Medications: Anastrozole [Arimidex] 1 mg PO DAILY 07/20/16 [History] Denosumab [Prolia (For Outpatient Infusion)] 60 mg SQ [id number] 07/20/16 [History ] Fluticasone Propionate Nasal [Flonase] 2 spr NS DAILY PRN 07/20/16 [History] Ipratropium/Albuterol Sulfate [Combivent Respimat Inhal [place]] 1 puff IH QID PRN 07/20/16 [History] Loratadine [Claritin] 10 mg PO DAILY PRN 07/20/16 [History] Pantoprazole Sodium [Protonix] 40 mg PO DAILY PRN 07/20/16 [History] Ranitidine HCl [Heartburn Relief] 150 mg PO HS 07/20/16 [History] Albuterol Sulfate [Proair Hfa] 2 puff IH Q4H PRN 02/11/17 [History] Rosuvastatin [Crestor] 40 mg PO HS 02/11/17 [History] Sennosides/Docusate Sodium [Senna-Docusate Sodium Tablet] 1 each PO BID PRN [History] Budesonide/Formoterol 160/4.5 [Symbicort 160/4.5] 2 puff IH DAILY 11/20/17 [ History] Duloxetine HCl [Cymbalta] 60 mg PO DAILY 11/21/17 [History] Albuterol Neb [Proventil Neb] 2.5 mg IH Q4H 04/07/18 [History] Biotin 5,000 mcg PO DAILY 04/07/18 [History] Cholecalciferol (Vitamin D3) [Vitamin D3] 5,000 unit PO DAILY 04/07/18 [History] Cyanocobalamin (Vitamin B-12) [Vitamin B12] 1,000 mcg PO DAILY 04/07/18 [History ] Multivitamin [One Daily Multivitamin] 1 each PO DAILY 04/07/18 [History] Polyethylene Glycol 3350 [MiraLAX] 17 gm PO DAILY PRN 04/07/18 [History] Tiotropium [Spiriva] 2 puff IH DAILY 04/07/18 [History] Metformin HCl [Metformin HCl ER] 500 mg PO DAILY 06/03/18 [History] Azithromycin 250 mg PO DAILY #6 tablet 06/07/18 [Rx] predniSONE [PredniSONE] 10 mg PO DAILY #25 tablet 06/07/18 [Rx] Allergies/Adverse Reactions: 3 Allergy/AdvReac Type Severity Reaction Status Date / Time alendronate sodium Allergy See Verified 09/01/17 13:05 [From Fosamax] Comments pregabalin [From Lyrica] Allergy Swelling Verified 09/01/17 13:05 of Lip/Tongue/Throat RISSA Inhibitors AdvReac Cough Verified 09/01/17 13:05 acetaminophen [From Percocet] AdvReac Nausea Verified 09/01/17 13:05 clarithromycin [From Biaxin] AdvReac Nausea Verified 09/01/17 13:05 lisinopril [From Prinivil] AdvReac Nausea Verified 09/01/17 13:05 Oxycodone [From Percocet] AdvReac Nausea Verified 09/01/17 13:05 red wine Allergy Anaphylaxis Uncoded 09/01/17 13:05 - Respiratory Orders Oxygen / L per min (3L NC) Smoking Cessation: Smoking cessation has been advised. For more information, call the [place] Tobacco Quit Line at 8-840-OFNX-NOW. - Diet Orders No Concentrated Sweets CERTIFICATION: I certify that the transfer of the above named patient to an Extended Care Facility is necessary for the continuing treatment of the diagnosis listed. The above information is true and accurate reflection of patient's current condition. Confidential - Redisclosure prohibited without a patient's written consent.
== END 2018-06-07 15:15 | DRG 193 ==
LOC: EMEROO 22:36 → 3BNU 22:36
PROVIDERS: ADMIT Family Medicine; ATTEND Family Medicine

== ENCOUNTER 2018-10-20 13:08 | Inpatient (IN) ==
[2018-10-20] MEDS ORDERED: 0.9 % Sodium Chloride 500 ML IVC ONE (13:35)
[2018-10-20 14:18] LABS: VBG Ionized Calcium 1.55 mmol/L (1.15-1.35)
[2018-10-20 14:21] LABS: Basophils # 0.1 K/mcL (0.0-0.2); Basophils % 0.7 %; Eosinophils # 0.5 K/mcL (0.0-0.6); Eosinophils % 3.6 %; Hematocrit 36.6 % (35.3-44.9); Hemoglobin 11.6 g/dL (11.5-15.4); Lymphocytes # 2.9 K/mcL (0.6-4.6); Lymphocytes % 23.2 %; Mean Corpuscular HGB Conc 31.7 g/dL (31.6-35.5); Mean Corpuscular Hemoglobin 28.4 pg (28.0-33.3); Mean Corpuscular Volume 89.7 fL (83.0-100.0); Mean Platelet Volume 9.3 fL (9.4-12.4); Monocytes % 8.1 %; Platelet Count 388 K/mcL (140-400); Red Blood Count 4.08 M/mcL (3.82-4.97); Red Cell Distribution Width 13.7 % (11.5-14.5); Segmented Neutrophils % 63.4 %
[2018-10-20 14:35] LABS: Troponin I < 0.03 ng/mL (< 0.04)
[2018-10-20 14:38] LABS: Bilirubin,Urine Negative (Negative); Blood,Urine Negative (Negative); Clarity,Urine Cloudy (Clear); Color,Urine Yellow (Yellow); Glucose,Urine (UA) Normal (Normal); Ketones,Urine Negative (Negative); Leukocyte Esterase,Urine Trace (Negative); Nitrite,Urine Negative (Negative); Protein,Urine 100 mg/dL (Neg-Trace); Specific Gravity,Urine 1.014 (1.010-1.025); Urobilinogen,Urine Normal (Normal)
[2018-10-20 14:40] LABS: Bacteria,Urine None Seen per hpf (None-Few); Hyaline Casts,Urine None Seen per lpf (None-Few); RBC,Urine 0-3 per hpf (0-3); Squamous Epithelial Cell,Urine Many per lpf (None-Few); WBC,Urine 30-50 per hpf (0-3)
[2018-10-20] MEDS ORDERED: Ipratropium/Albuterol Neb 3 ML IH ONE (14:40)
[2018-10-20 14:44] LABS: Calcium 12.9 mg/dL (8.6-10.3)
[2018-10-20 14:45] LABS: BUN/Creatinine Ratio 14 (6-26); Blood Urea Nitrogen 33 mg/dL (8-23); Calcium 12.9 mg/dL (8.6-10.3); Carbon Dioxide 24 mEq/L (23-29); Chloride 104 mEq/L (98-107); Glucose 106 mg/dL (70-105); Magnesium 2.1 mg/dL (1.6-2.6); Osmolality,Calculated 298 (280-300); Phosphorous 3.5 mg/dL (2.7-4.5); Potassium 4.1 mEq/L (3.5-5.1); Sodium 140 mEq/L (136-145); eGFR For Non-African Americans 20 (> 60)
[2018-10-20 14:49] LABS: Thyroid Stimulating Hormone 0.891 mcIU/mL (0.340-5.600)
[2018-10-20 14:56] LABS: Calcium Oxalate Crystals,Urine Present
[2018-10-20] MEDS ORDERED: 0.9 % Sodium Chloride 1,000 ML IVC ONE (16:15)
--- NOTE | 2018-10-20 16:30 | Internal Med History&Physical ---
Date of Encounter: 10/20/18 Time of Encounter: 16:30 Internal Medicine - H&P: HPI Chief complaint: abnormal labs Admitted From: Home Plans for Post Hospital Care: Home History of present illness: Ms. Montes is a 83 year old female with history of COPD on 3 L of O2 at baseline CPAP at night, NIDDM diabetes, breast cancer, CKD 3 and iron deficiency anemia presented to the ED as per r&d engineer request for abnormal labs. as per keyana she had a 3 month follow up labs performed and was told to come to the ED. she denies headache, svision loss, N/V/D, fever, chills, chest pain, palpitations, muscle cramps however she does feel more constipated from her baseline. she has no other complaints. her constipation is relieved with stool softeners. she denies frequency, dysuria, hematuria. Walks with a cane at baseline. she reports that she was hospitalized for similar symptoms/lab abnormalities in the past one time however she cannot recall what the diagnosis was Past Med Surg Social Fam HX - Past Medical History Medical history: arthritis, cancer, COPD, diabetes, GERD, GI bleed, hyperlipidemia, hypertension, migraine, osteoporosis, renal disease, TIA Additional medical history: high cholesterol Psychiatric history: depression - Past Surgical History Surgical History: breast surgery, cancer surgery, colectomy, knee replacement, orthopedic, other, other Additional surgical history: abdominal surgery multiple - lymph nodes - Social History Smoking Status: Current every day smoker Smokeless Tobacco Status: No Alcohol use: rarely Drug use: none - Family History Father Living Status: Hx Family Respiratory Disorders: Yes Hx Family Cancer: No Mother Adopted: No Family Member Ethnicity: Non- Living Status: Hx Family Cardiac Disorders: No Hx Family Respiratory Disorders: No Hx Family Cancer: No Hx Family GI Disorders: No Hx Family Endocrine Disorder: Yes (DM) Hx Family Neuromuscular Disorders: No Hx Family Neurologic Disorders: Yes (dementia) Hx Family HEENT Disorders: No Hx Family Autoimmune Disorders: No Internal Medicine - H&P: Meds Anastrozole [Arimidex] 1 mg PO DAILY 07/20/16 [History] Denosumab [Prolia (For Outpatient Infusion)] 60 mg SQ [id number] 07/20/16 [History] Fluticasone Propionate Nasal [Flonase] 2 spr NS DAILY PRN 07/20/16 [History] Ipratropium/Albuterol Sulfate [Combivent Respimat Inhal [place]] 1 puff IH QID PRN 07/20/16 [History] Loratadine [Claritin] 10 mg PO DAILY PRN 07/20/16 [History] Pantoprazole Sodium [Protonix] 40 mg PO BID 07/20/16 [History] Ranitidine HCl [Heartburn Relief] 150 mg PO DAILY PRN 07/20/16 [History] Albuterol Sulfate [Proair Hfa] 2 puff IH Q4H PRN 02/11/17 [History] Rosuvastatin [Crestor] 40 mg PO HS 02/11/17 [History] Budesonide/Formoterol 160/4.5 [Symbicort 160/4.5] 2 puff IH DAILY 11/20/17 [History] Duloxetine HCl [Cymbalta] 60 mg PO DAILY 11/21/17 [History] Albuterol Neb [Proventil Neb] 2.5 mg IH Q4H PRN 04/07/18 [History] Biotin 5,000 mcg PO DAILY 04/07/18 [History] Cholecalciferol (Vitamin D3) [Vitamin D3] 5,000 unit PO DAILY 04/07/18 [History] Cyanocobalamin (Vitamin B-12) [Vitamin B12] 1,000 mcg PO DAILY 04/07/18 [History] Multivitamin [One Daily Multivitamin] 1 each PO DAILY 04/07/18 [History] Tiotropium [Spiriva] 2 puff IH DAILY 04/07/18 [History] Ascorbate Calcium [Vitamin C] 500 mg PO BID 07/18/18 [History] GlipiZIDE [Glipizide Xl] 5 mg PO DAILY 07/18/18 [History] Oxybutynin Chloride [Ditropan Xl] 5 mg PO BID 07/18/18 [History] Polyethylene Glycol 3350 [MiraLAX] 17 gm PO DAILY PRN 07/18/18 [History] Triamcinolone Acet 0.1% CRM [Kenalog] 1 appl TP DAILY 07/18/18 [History] Allergy/AdvReac Type Severity Reaction Status Date / Time alendronate sodium Allergy See Verified 06/17/18 11:10 [From Fosamax] Comments pregabalin [From Lyrica] Allergy Swelling Verified 06/17/18 11:10 of Lip/Tongue/Throat RISSA Inhibitors AdvReac Cough Verified 06/17/18 11:10 acetaminophen [From Percocet] AdvReac Nausea Verified 06/17/18 11:10 clarithromycin [From Biaxin] AdvReac Nausea Verified 06/17/18 11:10 lisinopril [From Prinivil] AdvReac Nausea Verified 06/17/18 11:10 Oxycodone [From Percocet] AdvReac Nausea Verified 06/17/18 11:10 red wine Allergy Anaphylaxis Uncoded 06/17/18 11:10 All Systems PM: A 10-system review of systems was performed and is negative for pertinent findings except as documented above in the HPI. - Constitutional Vitals: Temp Pulse Resp BP Pulse Ox 98.1 F 69 18 110/66 97 10/20/18 13:39 10/20/18 16:15 10/20/18 16:15 10/20/18 16:15 10/20/18 16:15 Exam: General: Patient is alert, oriented, no acute distress, overweight Head: atraumatic, normocephalic, Eye: normal appearance, PERRL, no scleral icterus, no conjunctival injection ENT: mucous membranes moist, normal external ear exam Neck: normal inspection, trachea midline, full ROM, no carotid bruits Chest: normal inspection, symmetric chest rise Respiratory: Good respiratory effort. Bilateral breath sounds are clear without wheezing, crackles, or rhonchi. Cardiovascular: Regular rate and rhythm. s1 and s2 No clicks, rubs, gallops, or murmors. Abdomen: Bowel sounds present normoactive x-4 quadrants. Abdomen is soft, nondistended. no Epigastric tenderness. No guarding or rebound. No organomegaly noted, obese musculoskeletal: Spontaneously moving all extremities. trace edema, no calf tenderness Skin: warm, dry, intact. Neuro: Alert and oriented x4. No focal deficit, could pull herself up the bed. Psych: Patient's affect is normal Internal Med - H&P Results - Labs CBC & Chem 7: 10/20/18 13:57 10/20/18 13:57 Labs: Short CBC 10/20/18 Range/Units 13:57 WBC 12.7 H (4.3-11.1) K/mcL Hgb 11.6 (11.5-15.4) g/dL Hct 36.6 (35.3-44.9) % Plt Count 388 (140-400) K/mcL Neutrophils # 8.0 (1.6-8.9) K/mcL BMP 10/20/18 10/20/18 13:57 13:57 Sodium 140 Potassium 4.1 Chloride 104 Carbon Dioxide 24 BUN 33 H Creatinine 2.37 H Glucose 106 H Calcium 12.9 H 12.9 H Cardiac Enzymes 10/20/18 Range/Units 13:57 Troponin I < 0.03 (< 0.04) ng/mL Urine 10/20/18 Range/Units 14:05 Urine Color Yellow (Yellow) Urine Clarity Cloudy A (Clear) Urine pH 6.0 (5.0-8.0) pH Units Ur Specific [place] 1.014 (1.010-1.025) Urine Protein 100 H (Neg-Trace) mg/dL Urine Glucose (UA) Normal (Normal) mg/dL - Impressions ITS Impressions Chest X-Ray 10/20/18 13:32 IMPRESSION: New hazy alveolar density medial right lower lung may reflect atelectasis or pneumonitis. Follow-up full inspiration PA and lateral chest may be useful for better characterization of pulmonary findings. Pulmonary sequela typical of that seen with smoking, including emphysema. Correlate with clinical history. Calcific atherosclerotic disease aorta. D/ / Lorenzo Olmos / Lorenzo Olmos Interpreting Provider: Lorenzo Olmos - Assessment and plan (1) Hypercalcemia Current Visit: Yes Status: Acute Assessment and plan: most likely secondary to dehydration. calcium 12.9 ionized calcium 1.55 phosphorus 3.5 magnesium 2.1 vitamin D 78 PTH 4.5 TSH 0.891 I discussed case with r&d engineer Dr. Malik and he recommended IV hydration over night and he will revaluate the patient in the AM to see if there would be need for bisphosphanate therapy recieved NS bolus in the ED. will continue NS at 100 CC per hour watch for over load BMP in AM EKG stat - watch QT (2) Acute renal failure superimposed on stage 3 chronic kidney disease Current Visit: Yes Status: Acute Assessment and plan: most likely secondary to dehydration strict intake and out put creatinine was 1.66 in june 2018- trended up to 2.47 now 2.37 on NS at 100 cc per hour will continue to monitor renal functions nephrology on board Qualifiers: Acute renal failure type: unspecified Qualified Code(s): N17.9 - Acute kidney failure, unspecified; N18.3 - Chronic kidney disease, stage 3 (moderate) (3) COPD (chronic obstructive pulmonary disease) Current Visit: No Status: Chronic Assessment and plan: currently not in exacerbation continue home medications Qualifiers: COPD type: unspecified COPD Qualified Code(s): J44.9 - Chronic obstructive pulmonary disease, unspecified (4) GERD (gastroesophageal reflux disease) Current Visit: No Status: Chronic Assessment and plan: continue home dose protonix and ranitidine Qualifiers: Esophagitis presence: with esophagitis Qualified Code(s): K21.0 - Gastro- esophageal reflux disease with esophagitis (5) Breast CA Current Visit: No Status: Inactive Assessment and plan: continue home medications Qualifiers: Breast location: unspecified site of breast Estrogen receptor status: unspecified Patient sex: female Laterality: unspecified laterality Qualified Code(s): C50.919 - Malignant neoplasm of unspecified site of un specified female breast (6) DVT prophylaxis Current Visit: No Status: Acute Assessment and plan: heaprin SC - Time Spent With Patient Total time spent is greater than 50% in coordination of care (as documented) at patient's floor/unit and/or counseling patient:
--- NOTE | 2018-10-20 16:30 | Emergency Department Note ---
Disposition Clinical Impression: Hypercalcemia, NANCY (acute kidney injury) Disposition: Admitted As Inpatient Condition: Good General Adult HPI - General Chief complaint: ED Recheck/Abnormal Lab/Rx Stated complaint: Dehydrated Time Seen by Provider: 10/20/18 13:24 Source: patient Limitations: no limitations Vital Signs Reviewed: Yes - History of Present Illness HPI Narrative: Patient presenting from nephrology for concern for hypercalcemia and worsening bodyaches with concern for confusion. The patient is very pleasant and happy but unable to give significant insight into condition. Describes concern for having increasing confusion and weakness with associated generalized body aches. Dr. Malik did call me and discussed the case. He is concerned that she needs fluids and fluids did not respond the addition of other medications as well as possible workup for multiple myeloma. Pain Scale: 5 - Related Data Home Medications Medication Instructions Recorded Confirmed RX: Anastrozole [Arimidex] 1 mg PO DAILY 07/20/16 07/18/18 RX: Denosumab [Prolia (For 60 mg SQ [id number] 07/20/16 06/03/18 Outpatient Infusion)] RX: Fluticasone Propionate Nasal 2 spr NS DAILY PRN 07/20/16 07/18/18 [Flonase] RX: Ipratropium/Albuterol Sulfate 1 puff IH QID PRN 07/20/16 07/18/18 [Combivent Respimat Inhal [place]] RX: Loratadine [Claritin] 10 mg PO DAILY PRN 07/20/16 07/18/18 RX: Pantoprazole Sodium [Protonix] 40 mg PO BID 07/20/16 07/18/18 RX: Ranitidine HCl [Heartburn 150 mg PO DAILY PRN 07/20/16 07/18/18 Relief] RX: Albuterol Sulfate [Proair Hfa] 2 puff IH Q4H PRN 02/11/17 06/03/18 RX: Rosuvastatin [Crestor] 40 mg PO HS 02/11/17 07/18/18 RX: Budesonide/Formoterol 160/4.5 2 puff IH DAILY 11/20/17 07/18/18 [Symbicort 160/4.5] RX: Duloxetine HCl [Cymbalta] 60 mg PO DAILY 11/21/17 07/18/18 RX: Albuterol Neb [Proventil Neb] 2.5 mg IH Q4H PRN 04/07/18 07/18/18 RX: Biotin 5,000 mcg PO DAILY 04/07/18 06/03/18 RX: Cholecalciferol (Vitamin D3) 5,000 unit PO DAILY 04/07/18 07/18/18 [Vitamin D3] RX: Cyanocobalamin (Vitamin B-12) 1,000 mcg PO DAILY 04/07/18 06/03/18 [Vitamin B12] RX: Multivitamin [One Daily 1 each PO DAILY 04/07/18 07/18/18 Multivitamin] RX: Tiotropium [Spiriva] 2 puff IH DAILY 04/07/18 07/18/18 Ascorbate Calcium [Vitamin C] 500 mg PO BID 07/18/18 07/18/18 GlipiZIDE [Glipizide Xl] 5 mg PO DAILY 07/18/18 07/18/18 Oxybutynin Chloride [Ditropan Xl] 5 mg PO BID 07/18/18 07/18/18 RX: Polyethylene Glycol 3350 17 gm PO DAILY PRN 07/18/18 07/18/18 [MiraLAX] Triamcinolone Acet 0.1% CRM 1 appl TP DAILY 07/18/18 07/18/18 [Kenalog] Allergies Allergy/AdvReac Type Severity Reaction Status Date / Time alendronate sodium Allergy See Verified 06/17/18 11:10 [From Fosamax] Comments pregabalin [From Lyrica] Allergy Swelling Verified 06/17/18 11:10 of Lip/Tongue/Throat RISSA Inhibitors AdvReac Cough Verified 06/17/18 11:10 acetaminophen [From Percocet] AdvReac Nausea Verified 06/17/18 11:10 clarithromycin [From Biaxin] AdvReac Nausea Verified 06/17/18 11:10 lisinopril [From Prinivil] AdvReac Nausea Verified 06/17/18 11:10 Oxycodone [From Percocet] AdvReac Nausea Verified 06/17/18 11:10 red wine Allergy Anaphylaxis Uncoded 06/17/18 11:10 All systems ED: reviewed and negative except as stated. Review of Systems: As Per HPI Constitutional: Reports: weakness. Denies: fever, chills ENT ED: Denies: congestion Cardiovascular: Denies: chest pain, palpitations Respiratory: Denies: cough Gastrointestinal: Reports: nausea. Denies: abdominal pain, vomiting Genitourinary: Denies: urgency, dysuria Musculoskeletal: Reports: myalgia Integumentary: Denies: rash, abrasion Neurological: Reports: weakness (generalized) Endocrine: Reports: fatigue Past Medical History - Past Medical History Medical history: Reports: arthritis, cancer, COPD, diabetes, GERD, GI bleed, hyp erlipidemia, hypertension, migraine, osteoporosis, renal disease, TIA Surgical history: Reports: breast surgery, cancer surgery, colectomy, knee replacement, orthopedic, other, other Psychiatric history: Reports: depression - Social History Smoking Status: Current every day smoker Smokeless Tobacco Status: No Alcohol use: Reports: rarely Drug use: Reports: none Physical Exam - General Limitations: no limitations General appearance: alert, in no apparent distress - Head Head exam: atraumatic, normocephalic - Eye Eye exam: Present: normal appearance - ENT ENT exam: normal exam, normal oropharynx - Neck Neck exam: Present: normal inspection, full ROM - Chest Chest inspection: Present: normal inspection, symmetric chest wall rise. Absent: tenderness - Respiratory Respiratory exam: Present: normal lung sounds bilaterally. Absent: respiratory distress - Cardiovascular Cardiovascular exam: Present: regular rate, normal rhythm - Abdominal Exam Abdominal exam: Present: soft, Non-Tender - Extremities Exam Extremities exam: Present: normal inspection, full ROM - Back Exam Back exam: Present: normal inspection - Neurological Exam Neurological exam: Present: alert. Absent: oriented X3, motor sensory deficit Course - Reevaluation(s) Reevaluation #1: Patient not in respiratory distress. Requesting nebulizer treatment. Tx ordered. Repeat labs show elevated Cr and Ca. Pt with concern for dehydration. Reevaluation #2: I did discuss with the daughter over the phone. She is in [place]. Unable to be here at this time. She states that the patient was placed on antibiotics recently and believes one of them might have been Macrobid. Antibiotics potentially playing a factor in overall condition. - Consultations Consultation #1: Discussed with Dr. Malik. He called to inform you of the patient coming to the emergency department. Recommends fluids and further aggressive treatment as well as potential workup for hypercalcemia. Possible bisphosphinates and multiple meyloma workup if doesn't significantly improve with fluids. Discussed with hospitalist. Patient accepted for admission. Vital Signs Temperature 98.1 F 10/20/18 13:17 Pulse Rate 88 10/20/18 13:17 Respiratory Rate 16 10/20/18 13:17 Blood Pressure 129/54 10/20/18 13:17 O2 Sat by Pulse Oximetry 93 10/20/18 13:17 Temperature 98.6 F 10/21/18 07:41 Pulse Rate 86 10/21/18 07:41 Respiratory Rate 18 10/21/18 07:41 Blood Pressure 122/66 10/21/18 07:41 O2 Sat by Pulse Oximetry 98 10/21/18 07:41 Oxygen Delivery Oxygen Delivery Room Air Medical Decision Making - Lab Data Result diagrams: 10/21/18 06:19 10/21/18 06:19 Lab Results 10/20/18 10/20/18 10/20/18 Range/Units 13:57 13:57 13:57 WBC 12.7 H (4.3-11.1) K/mcL RBC 4.08 (3.82-4.97) M/mcL Hgb 11.6 (11.5-15.4) g/dL Hct 36.6 (35.3-44.9) % MCV 89.7 (83.0-100.0) fL MCH 28.4 (28.0-33.3) pg MCHC 31.7 (31.6-35.5) g/dL RDW 13.7 (11.5-14.5) % Plt Count 388 (140-400) K/mcL MPV 9.3 L (9.4-12.4) fL Immature Gran % 1.0 (0-4) % Seg Neutrophils % 63.4 % Lymphocytes % 23.2 % Monocytes % 8.1 % Eosinophils % 3.6 % Basophils % 0.7 % Neutrophils # 8.0 (1.6-8.9) K/mcL Lymphocytes # 2.9 (0.6-4.6) K/mcL Monocytes # 1.0 (0.0-1.3) K/mcL Eosinophils # 0.5 (0.0-0.6) K/mcL Basophils # 0.1 (0.0-0.2) K/mcL Sodium 140 (136-145) mEq/L Potassium 4.1 (3.5-5.1) mEq/L Chloride 104 (98-107) mEq/L Carbon Dioxide 24 (23-29) mEq/L BUN 33 H (8-23) mg/dL Creatinine 2.37 H (0.60-1.20) mg/dL Est GFR ( Amer) 24 L (> 60) Est GFR (Non-Af Amer) 20 L (> 60) BUN/Creatinine Ratio 14 (6-26) Glucose 106 H (70-105) mg/dL Est Mean Plasma Glucose mg/dl Hemoglobin A1c ( - 5.6) % Calculated Osmolality 298 (280-300) Calcium 12.9 H 12.9 H (8.6-10.3) mg/dL Venous Ioniz Calcium (1.15-1.35) mmol/L Phosphorus 3.5 (2.7-4.5) mg/dL Magnesium 2.1 (1.6-2.6) mg/dL Troponin I < 0.03 (< 0.04) ng/mL Lipase 5 L (11-82) Units/L TSH 0.891 (0.340-5.600) mcIU/mL Urine Color (Yellow) Urine Clarity (Clear) Urine pH (5.0-8.0) pH Units Ur Specific [place] (1.010-1.025) Urine Protein (Neg-Trace) mg/dL Urine Glucose (UA) (Normal) mg/dL Urine Ketones (Negative) mg/dL Urine Blood (Negative) Urine Nitrite (Negative) Urine Bilirubin (Negative) Urine Urobilinogen (Normal) mg/dL Ur Leukocyte Esterase (Negative) Urine Microscopic RBC (0-3) per hpf Urine Microscopic WBC (0-3) per hpf Ur Squamous Epith Cells (None-Few) per lpf Calcium Oxalate Crystal Urine Bacteria (None-Few) per hpf Hyaline Casts (None-Few) per lpf Ur Culture Indicated? (NO) 10/20/18 10/20/18 10/20/18 Range/Units 13:57 14:05 14:16 WBC (4.3-11.1) K/mcL RBC (3.82-4.97) M/mcL Hgb (11.5-15.4) g/dL Hct (35.3-44.9) % MCV (83.0-100.0) fL MCH (28.0-33.3) pg MCHC (31.6-35.5) g/dL RDW (11.5-14.5) % Plt Count (140-400) K/mcL MPV (9.4-12.4) fL Immature Gran % (0-4) % Seg Neutrophils % % Lymphocytes % % Monocytes % % Eosinophils % % Basophils % % Neutrophils # (1.6-8.9) K/mcL Lymphocytes # (0.6-4.6) K/mcL Monocytes # (0.0-1.3) K/mcL Eosinophils # (0.0-0.6) K/mcL Basophils # (0.0-0.2) K/mcL Sodium (136-145) mEq/L Potassium (3.5-5.1) mEq/L Chloride (98-107) mEq/L Carbon Dioxide (23-29) mEq/L BUN (8-23) mg/dL Creatinine (0.60-1.20) mg/dL Est GFR ( Amer) (> 60) Est GFR (Non-Af Amer) (> 60) BUN/Creatinine Ratio (6-26) Glucose (70-105) mg/dL Est Mean Plasma Glucose 160 mg/dl Hemoglobin A1c 7.2 H ( - 5.6) % Calculated Osmolality (280-300) Calcium (8.6-10.3) mg/dL Venous Ioniz Calcium 1.55 H (1.15-1.35) mmol/L Phosphorus (2.7-4.5) mg/dL Magnesium (1.6-2.6) mg/dL Troponin I (< 0.04) ng/mL Lipase (11-82) Units/L TSH (0.340-5.600) mcIU/mL Urine Color Yellow (Yellow) Urine Clarity Cloudy A (Clear) Urine pH 6.0 (5.0-8.0) pH Units Ur Specific [place] 1.014 (1.010-1.025) Urine Protein 100 H (Neg-Trace) mg/dL Urine Glucose (UA) Normal (Normal) mg/dL Urine Ketones Negative (Negative) mg/dL Urine Blood Negative (Negative) Urine Nitrite Negative (Negative) Urine Bilirubin Negative (Negative) Urine Urobilinogen Normal (Normal) mg/dL Ur Leukocyte Esterase Trace H (Negative) Urine Microscopic RBC 0-3 (0-3) per hpf Urine Microscopic WBC 30-50 H (0-3) per hpf Ur Squamous Epith Cells Many H (None-Few) per lpf Calcium Oxalate Crystal Present Urine Bacteria None Seen (None-Few) per hpf Hyaline Casts None Seen (None-Few) per lpf Ur Culture Indicated? NO. A (NO)
[2018-10-20] MEDS ORDERED: Fluticasone Propionate Nasal 50 MCG/SPRAY BOTTLE NS PRN (17:00)
[2018-10-20] MEDS ORDERED: Famotidine 20 MG TABLET PO PRN (17:00)
[2018-10-20] MEDS ORDERED: Albuterol 2.5 MG/3 ML NEBULIZER IH PRN (17:00)
[2018-10-20] MEDS ORDERED: D5% in Water 1,000 ML IVC PRN (17:03)
[2018-10-20] MEDS ORDERED: *HR* Dextrose 50 % in Water (Syg) 50 ML SYRINGE IVP PRN (17:03)
[2018-10-20] MEDS ORDERED: Dextrose Gel 15 GM/37.5 ML TUBE PO PRN ×2 (17:03)
[2018-10-20 17:16] LABS: Estimated Average Glucose 160 mg/dl; Hemoglobin A1C 7.2 %
[2018-10-20] MEDS: Ipratropium/Albuterol Neb 3 ML IH SCH (21:17)
[2018-10-20] MEDS: 0.9 % Sodium Chloride 1,000 ML IVC SCH (21:55)
[2018-10-20] MEDS: Ascorbic Acid 500 MG TABLET PO SCH (21:56)
[2018-10-20] MEDS: *HR* Heparin 5,000 UNIT/ML VIAL SQ SCH (21:56)
[2018-10-20] MEDS: Insulin LISPRO 300 UNITS/3 ML VIAL SQ SCH (21:58)
[2018-10-21] MEDS: Ipratropium/Albuterol Neb 3 ML IH SCH ×4 (04:29→22:09)
[2018-10-21] MEDS: *HR* Heparin 5,000 UNIT/ML VIAL SQ SCH ×3 (05:32→21:42)
[2018-10-21 06:48] LABS: Basophils # 0.1 K/mcL (0.0-0.2); Basophils % 0.8 %; Eosinophils # 0.5 K/mcL (0.0-0.6); Hematocrit 30.3 % (35.3-44.9); Immature Granulocytes % 1.3 % (0-4); Lymphocytes # 3.2 K/mcL (0.6-4.6); Lymphocytes % 35.4 %; Mean Corpuscular Volume 90.4 fL (83.0-100.0); Mean Platelet Volume 8.8 fL (9.4-12.4); Monocytes # 0.8 K/mcL (0.0-1.3); Monocytes % 9.1 %; Neutrophils # 4.4 K/mcL (1.6-8.9); Platelet Count 303 K/mcL (140-400); Red Blood Count 3.35 M/mcL (3.82-4.97); Red Cell Distribution Width 13.8 % (11.5-14.5); Segmented Neutrophils % 48.4 %
[2018-10-21 06:49] LABS: Hemoglobin 9.7 g/dL (11.5-15.4)
[2018-10-21 07:01] LABS: Calcium 10.7 mg/dL (8.6-10.3); Potassium 3.4 mEq/L (3.5-5.1)
--- NOTE | 2018-10-21 08:45 | Nephrology Consult Note ---
Date of Encounter: 10/21/18 Time of Encounter: 10:15 Assessment and Plan (1) Hypercalcemia Current Visit: No Status: Acute (2) Acute renal failure superimposed on stage 4 chronic kidney disease Current Visit: Yes Status: Acute Mild NACNY (nonoliguric) on CKD stage IV (baseline eGFR mid 20s to upper 20s), who was found to have moderately severe hypercalcemia. Stop the vit D therapy but I am concerned also for multiple myeloma (she has hypercalcemia, anemia and CKD), vs amyloidosis but also in the DDx is scardosis given her chronic respiratory condition. I recommend Pred today which could help with both her breathing and if this is scardoidis, it would also help with the NANCY and Hypercalcemia. Continue the IVF, which have helped. I only heard wheezing on exam and not crackles, but if her dyspnea worsens the she may not be able to remains on the IVF. Since her hypercalcemia has trended less severe, then she will not need an IV Bisphosphonate such as Zometa. To work up the MM or Amyloid, I have already ordered SPEP, UPEP and K/L Free light chains. Continue to follow a renal protective strategy strategy with strict I/Os, daily weights, avoidance of nephrotoxins and renal diet. Appreciate the Hospitalists and discussed with Dr. Silva. I will be available on Tuesday if needed, please feel free to call or page me with any questions. My colleague Dr. Moeller will be on-service starting at 0800 on Tuesday for which I'll provide a thorough hand-off. Thank you. Qualifiers: Acute renal failure type: unspecified Qualified Code(s): N17.9 - Acute kidney failure, unspecified; N18.4 - Chronic kidney disease, stage 4 (severe) (3) Acute exacerbation of chronic obstructive pulmonary disease (COPD) Current Visit: No Status: Acute (4) Anemia Current Visit: No Status: Acute Qualifiers: Anemia type: due to chronic kidney disease Chronic kidney disease stage: stage 3 (moderate) Qualified Code(s): N18.3 - Chronic kidney disease, stage 3 (moderate); D63.1 - Anemia in chronic kidney disease History of Present Illness - Reason for Consult Consult date: 10/20/18 Chronic Kidney Disease (Acute, Moderately Severe Hypercalcemia) Requesting physician: Carmen Gong - Chief Complaint Hypercalcemia - History of Present Illness Vianca Montes is a very pleasant 83 y/o WF with a pmh of chronic COPD on home O2, CKD stage IIIb-IV, vit D def, SHPT and et al who presented after being sent to the ER for a very elevated Ca++ level. She reported feeling a little more fatigue than normal but after receiving the IVF overnight from the ER, she voiced having no new tremor or N/V/D. She denied taking XS OTC tums or XS milk. She denied diarrhea or F/C or frequent eye blinking. She said her breathing is about the same over time, except that during my interview/examine, she said it had been several hours since her last breathing treatment and she requested another (I communicated this to the floor RN). Past Med Surg Social Fam HX - Past Medical History Medical history: arthritis, cancer, COPD, diabetes, GERD, GI bleed, hyperlipidemia, hypertension, migraine, osteoporosis, renal disease, TIA Additional medical history: high cholesterol Psychiatric history: depression - Past Surgical History Surgical History: breast surgery, cancer surgery, colectomy, knee replacement, orthopedic, other, other Additional surgical history: abdominal surgery multiple - lymph nodes - Social History Smoking Status: Current every day smoker Smokeless Tobacco Status: No Alcohol use: rarely Drug use: none - Family History Father Living Status: Hx Family Cardiac Disorders: No Hx Family Respiratory Disorders: No Hx Family Cancer: No Hx Family GI Disorders: No Hx Family Genitourinary Disorders: No Hx Family Endocrine Disorder: No Hx Family Musculoskeletal Disorders: No Hx Family Neuromuscular Disorders: No Hx Family Neurologic Disorders: No Hx Family HEENT Disorders: No Hx Family Autoimmune Disorders: No Hx Family Reproductive Disorders: No Hx Family Psychosocial Disorders: No Hx Family Medical Disorders: No Mother Adopted: No Family Member Ethnicity: Non- Living Status: Hx Family Cardiac Disorders: No Hx Family Respiratory Disorders: No Hx Family Cancer: No Hx Family GI Disorders: No Hx Family Endocrine Disorder: Yes (DM) Hx Family Neuromuscular Disorders: No Hx Family Neurologic Disorders: Yes (dementia) Hx Family HEENT Disorders: No Hx Family Autoimmune Disorders: No Medications and Allergies Anastrozole [Arimidex] 1 mg PO DAILY 07/20/16 [History] Denosumab [Prolia (For Outpatient Infusion)] 60 mg SQ [id number] 07/20/16 [History] Fluticasone Propionate Nasal [Flonase] 2 spr NS DAILY PRN 07/20/16 [History] Ipratropium/Albuterol Sulfate [Combivent Respimat Inhal [place]] 1 puff IH QID PRN 07/20/16 [History] Loratadine [Claritin] 10 mg PO DAILY PRN 07/20/16 [History] Pantoprazole Sodium [Protonix] 40 mg PO BID 07/20/16 [History] Ranitidine HCl [Heartburn Relief] 150 mg PO DAILY PRN 07/20/16 [History] Albuterol Sulfate [Proair Hfa] 2 puff IH Q4H PRN 02/11/17 [History] Rosuvastatin [Crestor] 40 mg PO HS 02/11/17 [History] Budesonide/Formoterol 160/4.5 [Symbicort 160/4.5] 2 puff IH BID 11/20/17 [History] Duloxetine HCl [Cymbalta] 60 mg PO DAILY 11/21/17 [History] Albuterol Neb [Proventil Neb] 2.5 mg IH Q4H PRN 04/07/18 [History] Biotin 5,000 mcg PO DAILY 04/07/18 [History] Cholecalciferol (Vitamin D3) [Vitamin D3] 5,000 unit PO DAILY 04/07/18 [History] Multivitamin [One Daily Multivitamin] 1 each PO DAILY 04/07/18 [History] Tiotropium [Spiriva] 2 puff IH DAILY 04/07/18 [History] Ascorbate Calcium [Vitamin C] 500 mg PO BID 07/18/18 [History] Polyethylene Glycol 3350 [MiraLAX] 17 gm PO DAILY PRN 07/18/18 [History] Triamcinolone Acet 0.1% CRM [Kenalog] 1 appl TP DAILY 07/18/18 [History] Donepezil [Aricept] 5 mg PO DAILY 10/23/18 [History] Mirabegron [Myrbetriq] 50 mg PO DAILY 10/23/18 [History] Nitrofurantoin [Macrodantin] 50 mg PO DAILY 10/23/18 [History] Olmesartan Medoxomil 5 mg PO DAILY 10/23/18 [History] glipiZIDE [Glipizide] 10 mg PO DAILY 10/23/18 [History] Allergy/AdvReac Type Severity Reaction Status Date / Time alendronate sodium Allergy See Verified 06/17/18 11:10 [From Fosamax] Comments pregabalin [From Lyrica] Allergy Swelling Verified 06/17/18 11:10 of Lip/Tongue/Throat RISSA Inhibitors AdvReac Cough Verified 06/17/18 11:10 acetaminophen [From Percocet] AdvReac Nausea Verified 06/17/18 11:10 clarithromycin [From Biaxin] AdvReac Nausea Verified 06/17/18 11:10 lisinopril [From Prinivil] AdvReac Nausea Verified 06/17/18 11:10 Oxycodone [From Percocet] AdvReac Nausea Verified 06/17/18 11:10 red wine Allergy Anaphylaxis Uncoded 06/17/18 11:10 Review of Systems All Systems: reviewed and no additional remarkable complaints except as stated Exam - Vital Signs Vital signs: Initial Vital Signs Temp Pulse Resp BP Pulse Ox 98.1 F 88 16 129/54 93 10/20/18 13:17 10/20/18 13:17 10/20/18 13:17 10/20/18 13:17 10/20/18 13:17 Vital Signs - Last 8 Hours Temp Pulse Resp BP Pulse Ox 10/21/18 07:41 98.6 F 86 18 122/66 98 10/21/18 05:51 98.4 F 75 17 129/68 98 10/21/18 04:29 16 97 10/21/18 01:46 18 97 10/21/18 01:11 98.4 F 81 17 132/100 92 Intake and Output 10/20/18 10/21/18 10/21/18 23:59 07:59 15:59 Intake Total 60 / 60 Balance 60 / 60 Intake: Oral 60 / 60 Other: # Urine Diapers 1 Blood Glucose* 110 77 - General Appearance General appearance: well-developed, well-nourished, appears started age EENT: ATNC, PERRL, mucous membranes moist Neck: supple Respiratory: rhonchi Cardiology: no edema, regular rate, regular rhythm Gastrointestinal: normoactive bowel sounds, no tenderness, no guarding Integumentary: warm and dry Neurologic: no focal deficit, no asterixis, alert and oriented x3 Musculoskeletal: no deformities, no erythema, no cyanosis Psychiatric: mood/affect appropriate, cooperative Results - Lab Results 10/23/18 05:56 10/23/18 05:56 Most recent lab results Calcium 10.7 mg/dL (8.6-10.3) H 10/21/18 06:19 Phosphorus 3.5 mg/dL (2.7-4.5) 10/20/18 13:57 Magnesium 2.1 mg/dL (1.6-2.6) 10/20/18 13:57 I reviewed the labs, vitals, med lists, progress notes both in [facility] and [facility], imaging. Consult Discharge Plan - Plan Referrals: Beverly Watson MD [Primary Care Provider] - 11/01/18 8:30 am (Please follow up as schedule)
[2018-10-21] MEDS: Ascorbic Acid 500 MG TABLET PO SCH ×2 (10:11→21:42)
[2018-10-21] MEDS: 0.9 % Sodium Chloride 1,000 ML IVC SCH ×3 (10:11→22:51)
[2018-10-21] MEDS: Insulin LISPRO 300 UNITS/3 ML VIAL SQ SCH ×4 (10:12→21:37)
[2018-10-21] MEDS: Cyanocobalamin (B-12) 1,000 MCG TABLET PO SCH (10:12)
[2018-10-21] MEDS: Anastrozole 1 MG TABLET PO SCH (10:12)
[2018-10-21] MEDS: Budesonide/Formoterol 160/4.5 1 PUFF INH IH SCH (10:57)
[2018-10-21] MEDS: predniSONE 20 MG TABLET PO SCH (14:15)
--- NOTE | 2018-10-21 14:34 | Internal Med Progress Note ---
Hospitalist Progress Note - Encounter Date of Encounter: 10/21/18 Time of Encounter: 08:31 - Subjective Interval History: Patient was seen and examined at bedside. Reports that she had a breathing attack overnight however shows much better this morning. Denies constipation, nausea, vomiting, diarrhea. Has no dysuria, frequency or urge. tolerating PO d iet. - Exam Vitals: Temp Pulse Resp BP Pulse Ox 98.6 F 80 16 116/72 98 10/21/18 12:10 10/21/18 12:10 10/21/18 12:10 10/21/18 12:10 10/21/18 12:10 Exam: General: Patient is alert, oriented, no acute distress, overweight Head: atraumatic, normocephalic, Eye: normal appearance, PERRL, no scleral icterus, no conjunctival injection ENT: mucous membranes moist, normal external ear exam Neck: normal inspection, trachea midline, full ROM, no carotid bruits Chest: normal inspection, symmetric chest rise Respiratory: Good respiratory effort. Bilateral breath sounds are clear with occasional wheezing, no crackles, or rhonchi. Cardiovascular: Regular rate and rhythm. s1 and s2 No clicks, rubs, gallops, or murmors. Abdomen: Bowel sounds present normoactive x-4 quadrants. Abdomen is soft, nondistended. no Epigastric tenderness. No guarding or rebound. No organomegaly noted, obese musculoskeletal: Spontaneously moving all extremities. trace edema, no calf tenderness Skin: warm, dry, intact. Neuro: Alert and oriented x4. No focal deficit, could pull herself up the bed. Psych: Patient's affect is normal - Assessment and Plan (1) Hypercalcemia Current Visit: Yes Status: Acute Assessment and Plan: most likely secondary to dehydration. calcium 12.9 improved to 10.7 ionized calcium 1.55 phosphorus 3.5 magnesium 2.1 vitamin D 78 PTH 4.5 TSH 0.891 Will continue with IV fluids at lower rate watch for overload. Nephrology recommendations appreciated. BMP in AM Chest x-ray in the morning (2) Acute renal failure superimposed on stage 3 chronic kidney disease Current Visit: Yes Status: Acute Assessment and Plan: most likely secondary to dehydration strict intake and out put creatinine was 1.66 in june 2018- trended up to 2.47 to 2.37 to 2.22 on NS at 100 cc per hour - watch for overload will continue to monitor renal functions nephrology on board (3) Acute exacerbation of chronic obstructive pulmonary disease (COPD) Current Visit: No Status: Acute Assessment and Plan: Started on by mouth steroids Doxycycline Urine antigens DuoNeb's Continue home inhalers Oxygen via nasal cannula to keep saturations above 90 (4) GERD (gastroesophageal reflux disease) Current Visit: No Status: Chronic Assessment and Plan: continue home dose protonix and ranitidine (5) Breast CA Current Visit: No Status: Chronic Assessment and Plan: continue home medications (6) DVT prophylaxis Current Visit: No Status: Acute Assessment and Plan: heaprin SC (7) Hypokalemia Current Visit: Yes Status: Acute Assessment and Plan: Replaced will follow in the morning - Time Spent with Patient Total time spent is greater than 50% in coordination of care (as documented) at patient's floor/unit and/or counseling patient: Internal Medicine: Result - Labs CBC & Chem 7: 10/21/18 06:19 10/21/18 06:19 Labs: Short CBC 10/21/18 Range/Units 06:19 WBC 9.2 (4.3-11.1) K/mcL Hgb 9.7 L D (11.5-15.4) g/dL Hct 30.3 L (35.3-44.9) % Plt Count 303 (140-400) K/mcL Neutrophils # 4.4 (1.6-8.9) K/mcL BMP 10/20/18 10/20/18 10/21/18 13:57 13:57 06:19 Sodium 140 141 Potassium 4.1 3.4 L Chloride 104 110 H Carbon Dioxide 24 24 BUN 33 H 31 H Creatinine 2.37 H 2.22 H Glucose 106 H 85 Calcium 12.9 H 12.9 H 10.7 H Cardiac Enzymes 10/20/18 Range/Units 13:57 Troponin I < 0.03 (< 0.04) ng/mL Urine 10/20/18 Range/Units 14:05 Urine Color Yellow (Yellow) Urine Clarity Cloudy A (Clear) Urine pH 6.0 (5.0-8.0) pH Units Ur Specific [place] 1.014 (1.010-1.025) Urine Protein 100 H (Neg-Trace) mg/dL Urine Glucose (UA) Normal (Normal) mg/dL Consult Discharge Plan - Plan Referrals: Juwan-Warren,Beverly M, MD [Primary Care Provider] - (2) Acute renal failure superimposed on stage 3 chronic kidney disease Qualifiers: Acute renal failure type: unspecified Qualified Code(s): N17.9 - Acute kidney failure, unspecified; N18.3 - Chronic kidney disease, stage 3 (moderate) (4) GERD (gastroesophageal reflux disease) Qualifiers: Esophagitis presence: with esophagitis Qualified Code(s): K21.0 - Gastro- esophageal reflux disease with esophagitis (5) Breast CA Qualifiers: Breast location: unspecified site of breast Estrogen receptor status: unspecified Patient sex: female Laterality: unspecified laterality Qualified Code(s): C50.919 - Malignant neoplasm of unspecified site of unspecified female breast
[2018-10-21] MEDS: Doxycycline 100 MG CAPSULE PO SCH (21:42)
[2018-10-22] MEDS: Ipratropium/Albuterol Neb 3 ML IH SCH ×4 (03:46→21:01)
[2018-10-22] MEDS: *HR* Heparin 5,000 UNIT/ML VIAL SQ SCH ×3 (06:06→21:42)
[2018-10-22 07:17] LABS: Calcium 10.7 mg/dL (8.6-10.3); Potassium 4.3 mEq/L (3.5-5.1)
[2018-10-22] MEDS: Cyanocobalamin (B-12) 1,000 MCG TABLET PO SCH (09:12)
[2018-10-22] MEDS: predniSONE 20 MG TABLET PO SCH (09:12)
[2018-10-22] MEDS: Doxycycline 100 MG CAPSULE PO SCH ×2 (09:13→21:42)
[2018-10-22] MEDS: Ascorbic Acid 500 MG TABLET PO SCH ×2 (09:13→21:42)
[2018-10-22] MEDS: Insulin LISPRO 300 UNITS/3 ML VIAL SQ SCH ×4 (09:13→21:35)
[2018-10-22] MEDS: Anastrozole 1 MG TABLET PO SCH (09:13)
--- NOTE | 2018-10-22 11:01 | Internal Med Progress Note ---
Hospitalist Progress Note - Encounter Date of Encounter: 10/22/18 Time of Encounter: 10:59 - Subjective Interval History: Patient was seen and examined at bedside. Has no complaints. No overnight events. Denies constipation, nausea, vomiting, diarrhea. Has no dysuria, frequency or urge. tolerating PO diet. - Exam Vitals: Temp Pulse Resp BP Pulse Ox 97.9 F 85 16 107/69 97 10/22/18 08:10 10/22/18 08:10 10/22/18 08:10 10/22/18 08:10 10/22/18 08:10 Exam: General: Patient is alert, oriented, no acute distress, overweight Head: atraumatic, normocephalic, Eye: normal appearance, PERRL, no scleral icterus, no conjunctival injection ENT: mucous membranes moist, normal external ear exam Neck: normal inspection, trachea midline, full ROM, no carotid bruits Chest: normal inspection, symmetric chest rise Respiratory: Good respiratory effort. Bilateral breath sounds are clear with occasional wheezing, no crackles, or rhonchi. Cardiovascular: Regular rate and rhythm. s1 and s2 No clicks, rubs, gallops, or murmors. Abdomen: Bowel sounds present normoactive x-4 quadrants. Abdomen is soft, nondistended. no Epigastric tenderness. No guarding or rebound. No or ganomegaly noted, obese musculoskeletal: Spontaneously moving all extremities. trace edema, no calf tenderness Skin: warm, dry, intact. Neuro: Alert and oriented x4. No focal deficit, could pull herself up the bed. Psych: Patient's affect is normal - Assessment and Plan (1) Hypercalcemia Current Visit: Yes Status: Acute Assessment and Plan: most likely secondary to dehydration. calcium 12.9 improved to 10.7 ionized calcium 1.55 phosphorus 3.5 magnesium 2.1 vitamin D 78 PTH 4.5 - 13.7 SPEP, UPEP and K/L Free light chains - in process TSH 0.891 Nephrology recommendations appreciated. BMP in AM (2) Acute renal failure superimposed on stage 3 chronic kidney disease Current Visit: Yes Status: Acute Assessment and Plan: most likely secondary to dehydration strict intake and out put creatinine was 1.66 in june 2018- trended up to 2.47 to 2.37 to 2.22 to 2.06 will continue to monitor renal functions nephrology on board (3) Acute exacerbation of chronic obstructive pulmonary disease (COPD) Current Visit: No Status: Acute Assessment and Plan: Started on by mouth steroids Doxycycline Urine antigens- negative DuoNeb's Continue home inhalers Oxygen via nasal cannula to keep saturations above 90 (4) GERD (gastroesophageal reflux disease) Current Visit: No Status: Chronic Assessment and Plan: continue home dose protonix and ranitidine (5) Breast CA Current Visit: No Status: Chronic Assessment and Plan: continue home medications (6) DVT prophylaxis Current Visit: No Status: Acute Assessment and Plan: heaprin SC (7) Hypokalemia Current Visit: Yes Status: Acute Assessment and Plan: Replaced will follow in the morning - Time Spent with Patient Total time spent is greater than 50% in coordination of care (as documented) at patient's floor/unit and/or counseling patient: Internal Medicine: Result - Labs CBC & Chem 7: 10/21/18 06:19 10/22/18 06:19 Labs: BMP 10/22/18 06:19 Sodium 142 Potassium 4.3 D Chloride 111 H Carbon Dioxide 25 BUN 30 H Creatinine 2.06 H Glucose 173 H Calcium 10.7 H - Impressions Impressions Chest X-Ray 10/22/18 06:00 IMPRESSION: Linear atelectatic changes bilaterally. No acute infiltrate or overt failure. D/ / David Young MD / David Young MD Interpreting Provider: David Young MD Consult Discharge Plan - Plan Referrals: Beverly Watson MD [Primary Care Provider] - (2) Acute renal failure superimposed on stage 3 chronic kidney disease Qualifiers: Acute renal failure type: unspecified Qualified Code(s): N17.9 - Acute kidney failure, unspecified; N18.3 - Chronic kidney disease, stage 3 (moderate) (4) GERD (gastroesophageal reflux disease) Qualifiers: Esophagitis presence: with esophagitis Qualified Code(s): K21.0 - Gastro- esophageal reflux disease with esophagitis (5) Breast CA Qualifiers: Breast location: unspecified site of breast Estrogen receptor status: unspecified Patient sex: female Laterality: unspecified laterality Qualified Code(s): C50.919 - Malignant neoplasm of unspecified site of unspecified female breast
[2018-10-22] MEDS: Budesonide/Formoterol 160/4.5 1 PUFF INH IH SCH (11:29)
[2018-10-22] MEDS ORDERED: Menthol 9.1 MG LOZENGE PO PRN (21:30)
[2018-10-23] MEDS: Ipratropium/Albuterol Neb 3 ML IH SCH ×4 (03:33→21:38)
[2018-10-23 06:08] LABS: Basophils % 0.4 %; Eosinophils % 0.4 %; Hematocrit 30.8 % (35.3-44.9); Hemoglobin 9.7 g/dL (11.5-15.4); Immature Granulocytes % 1.2 % (0-4); Lymphocytes # 2.4 K/mcL (0.6-4.6); Lymphocytes % 21.9 %; Mean Corpuscular HGB Conc 31.5 g/dL (31.6-35.5); Mean Corpuscular Hemoglobin 28.7 pg (28.0-33.3); Mean Corpuscular Volume 91.1 fL (83.0-100.0); Mean Platelet Volume 9.2 fL (9.4-12.4); Monocytes % 9.4 %; Neutrophils # 7.2 K/mcL (1.6-8.9); Platelet Count 299 K/mcL (140-400); Red Blood Count 3.38 M/mcL (3.82-4.97); Red Cell Distribution Width 13.7 % (11.5-14.5); Segmented Neutrophils % 66.7 %
[2018-10-23] MEDS: *HR* Heparin 5,000 UNIT/ML VIAL SQ SCH ×3 (06:19→21:16)
[2018-10-23 06:25] LABS: Calcium 10.9 mg/dL (8.6-10.3); Potassium 3.7 mEq/L (3.5-5.1)
[2018-10-23] MEDS: Doxycycline 100 MG CAPSULE PO SCH ×2 (08:37→21:13)
[2018-10-23] MEDS: Multivit/Ca/Min/Fe/FA 1 TAB TABLET PO SCH (08:37)
[2018-10-23] MEDS: Cyanocobalamin (B-12) 1,000 MCG TABLET PO SCH (08:38)
[2018-10-23] MEDS: Insulin LISPRO 300 UNITS/3 ML VIAL SQ SCH ×4 (08:38→21:18)
[2018-10-23] MEDS: predniSONE 20 MG TABLET PO SCH (08:38)
[2018-10-23] MEDS: Anastrozole 1 MG TABLET PO SCH (08:38)
[2018-10-23] MEDS: Ascorbic Acid 500 MG TABLET PO SCH ×2 (08:38→21:13)
--- NOTE | 2018-10-23 09:46 | Internal Med Progress Note ---
Hospitalist Progress Note - Encounter Date of Encounter: 10/23/18 Time of Encounter: 09:44 - Subjective Interval History: Patient was seen and examined at bedside. Has no complaints. No overnight events. Denies constipation, nausea, vomiting, diarrhea. Has no dysuria, frequency or urge. tolerating PO diet. nursing staff discussed with daughter who lives in [place] and she expressed concern with the patient living alone. As per nursing staff apparently patient is still driving herself. She had followed up with Dr. Bee with neurology and an MRI was ordered as outpatient as per the daughter however she wishes the MRI to be performed while she is hospitalized as her mother has developed episodes of confusion on the phone. - Exam Vitals: Temp Pulse Resp BP Pulse Ox 98.0 F 76 16 114/67 97 10/23/18 06:38 10/23/18 06:38 10/23/18 06:38 10/23/18 06:38 10/23/18 06:38 Exam: General: Patient is alert, oriented, no acute distress, overweight Head: atraumatic, normocephalic, Eye: normal appearance, PERRL, no scleral icterus, no conjunctival injection ENT: mucous membranes moist, normal external ear exam Neck: normal inspection, trachea midline, full ROM, no carotid bruits Chest: normal inspection, symmetric chest rise Respiratory: Good respiratory effort. Bilateral breath sounds are clear with occasional wheezing, (improved) no crackles, or rhonchi. Cardiovascular: Regular rate and rhythm. s1 and s2 No clicks, rubs, gallops, or murmors. Abdomen: Bowel sounds present normoactive x-4 quadrants. Abdomen is soft, nondistended. no Epigastric tenderness. No guarding or rebound. No organomegaly noted, obese musculoskeletal: Spontaneously moving all extremities. trace edema, no calf tenderness Skin: warm, dry, intact. Neuro: Alert and oriented x4. No focal deficit, Psych: Patient's affect is normal - Assessment and Plan (1) Hypercalcemia Current Visit: Yes Status: Acute Assessment and Plan: most likely secondary to dehydration. calcium 12.9 improved to 10.7 and 10.9 ionized calcium 1.55 phosphorus 3.5 magnesium 2.1 vitamin D 78 PTH 4.5 - 13.7 SPEP, UPEP and K/L Free light chains - in process TSH 0.891 Nephrology recommendations appreciated. BMP in AM Discontinue vitamin D supplements on discharge (2) Acute renal failure superimposed on stage 3 chronic kidney disease Current Visit: Yes Status: Acute Assessment and Plan: most likely secondary to dehydration strict intake and out put creatinine was 1.66 in june 2018- trended up to 2.47 to 2.37 to 2.22 to 2.06 will continue to monitor renal functions nephrology on board (3) Acute exacerbation of chronic obstructive pulmonary disease (COPD) Current Visit: No Status: Acute Assessment and Plan: Started on by mouth steroids Doxycycline Urine antigens- negative DuoNeb's Continue home inhalers Oxygen via nasal cannula to keep saturations above 90 (4) GERD (gastroesophageal reflux disease) Current Visit: No Status: Chronic Assessment and Plan: continue home dose protonix and ranitidine (5) Breast CA Current Visit: No Status: Chronic Assessment and Plan: continue home medications (6) DVT prophylaxis Current Visit: No Status: Acute Assessment and Plan: heaprin SC (7) Declining functional status Current Visit: Yes Status: Acute Assessment and Plan: MRI head ordered as per neurology recs OP Pt/Ot SW and CM consult as per discussion with daughter she has developed episodes of confusion while talking on the phone nad the neurologist had ordered MRI as OP> most likely secondary to hypercalcemia which has improved- will rule out intracranial abnormalities. (8) Hypokalemia Current Visit: Yes Status: Resolved Assessment and Plan: Resolved - Time Spent with Patient Total time spent is greater than 50% in coordination of care (as documented) at patient's floor/unit and/or counseling patient: Internal Medicine: Result - Labs CBC & Chem 7: 10/23/18 05:56 10/23/18 05:56 Labs: Short CBC 10/23/18 Range/Units 05:56 WBC 10.9 (4.3-11.1) K/mcL Hgb 9.7 L (11.5-15.4) g/dL Hct 30.8 L (35.3-44.9) % Plt Count 299 (140-400) K/mcL Neutrophils # 7.2 (1.6-8.9) K/mcL BMP 10/23/18 05:56 Sodium 142 Potassium 3.7 Chloride 109 H Carbon Dioxide 27 BUN 35 H Creatinine 1.89 H Glucose 124 H Calcium 10.9 H Consult Discharge Plan - Plan Referrals: Beverly Watson MD [Primary Care Provider] - (2) Acute renal failure superimposed on stage 3 chronic kidney disease Qualifiers: Acute renal failure type: unspecified Qualified Code(s): N17.9 - Acute kidney failure, unspecified; N18.3 - Chronic kidney disease, stage 3 (moderate) (4) GERD (gastroesophageal reflux disease) Qualifiers: Esophagitis presence: with esophagitis Qualified Code(s): K21.0 - Gastro- esophageal reflux disease with esophagitis (5) Breast CA Qualifiers: Breast location: unspecified site of breast Estrogen receptor status: unspecified Patient sex: female Laterality: unspecified laterality Qualified Code(s): C50.919 - Malignant neoplasm of unspecified site of unspecified female breast
[2018-10-23] MEDS: Budesonide/Formoterol 160/4.5 1 PUFF INH IH SCH ×2 (10:05→21:38)
--- NOTE | 2018-10-23 13:21 | Electrocardiograph Report ---
[place] [id number] Test Date: 2018-10-20 Pat Name: Vianca Montes Department: [id number] Room: 2A41 Gender: F Press Operator Helper: : [id number] Requested By: Tunde Welsh Order Number: [id number] Reading MD: Suraj Chapa Measurements Intervals [place] Rate: 80 P: 80 VT: 140 QRS: 4 QRSD: 102 T: 65 QT: 355 QTc: 410 Interpretive Statements Sinus rhythm Abnormal R-wave progression, early transition Artifact, leads V3 and V6. Electronically Signed On 10-23-2018 13:20:27 EST by Suraj Chapa
[2018-10-23] MEDS: Loratadine 10 MG TABLET PO PRN (21:13)
[2018-10-24] MEDS: Ipratropium/Albuterol Neb 3 ML IH SCH ×4 (03:58→22:26)
[2018-10-24] MEDS: *HR* Heparin 5,000 UNIT/ML VIAL SQ SCH ×3 (06:08→20:49)
--- NOTE | 2018-10-24 06:56 | Nephrology Progress Note ---
Date of Encounter: 10/23/18 Time of Encounter: 11:31 - Assessment and Plan (1) Acute renal failure superimposed on stage 4 chronic kidney disease Current Visit: Yes Status: Acute Patient with mild NANCY on CKD4 associated with hypercalcemia. Improving with IV fluids and holding vitamin D. Awaiting work-up. Patient with debility. She is interested in a SNF after discharge. Qualifiers: Acute renal failure type: unspecified Qualified Code(s): N17.9 - Acute kidney failure, unspecified; N18.4 - Chronic kidney disease, stage 4 (severe) (2) Acute exacerbation of chronic obstructive pulmonary disease (COPD) Current Visit: No Status: Acute (3) Anemia Current Visit: No Status: Acute Qualifiers: Anemia type: due to chronic kidney disease Chronic kidney disease stage: stage 3 (moderate) Qualified Code(s): N18.3 - Chronic kidney disease, stage 3 (moderate); D63.1 - Anemia in chronic kidney disease (4) Hypercalcemia Current Visit: No Status: Acute Subjective Principal diagnosis: CKD4 Interval history: Patient seen 10/23/2018 and without new complaint. She is interested in a SNF. Objective - Vital Signs Vital signs: Vital Signs Temp Pulse Resp BP Pulse Ox 10/24/18 05:05 98.0 F 71 17 113/62 93 10/24/18 03:58 17 94 10/23/18 23:54 97.8 F 81 16 108/52 91 10/23/18 21:38 16 94 10/23/18 19:32 97.7 F 75 15 119/71 95 10/23/18 16:30 16 94 10/23/18 15:12 98.1 F 77 16 136/70 98 10/23/18 11:08 98.4 F 74 16 137/83 97 10/23/18 10:05 16 98 Intake and Output 10/23/18 10/23/18 10/24/18 15:59 23:59 07:59 Intake Total 240 / 240 Output Total 200 / 200 Balance 240 / 240 -200 / -200 Intake: Oral 240 / 240 Output: Urine 200 / 200 Other: Meal Lunch Percent of Meal Consumed 100% # Voids 1 2 Weight 80.5 kg Blood Glucose* 115 215 - General Appearance General appearance: Present: well-developed, well-nourished EENT: Present: ATNC Neck: Present: supple Respiratory: Present: course breath sounds Cardiology: Present: regular rate Integumentary: Present: warm and dry Neurologic: Present: alert and oriented x3 - Lab 10/23/18 05:56 10/23/18 05:56 Most recent lab results Calcium 10.9 mg/dL (8.6-10.3) H 10/23/18 05:56 Phosphorus 3.5 mg/dL (2.7-4.5) 10/20/18 13:57 Magnesium 2.1 mg/dL (1.6-2.6) 10/20/18 13:57 Urine Creatinine 54 mg/dL 10/21/18 22:03 Consult Discharge Plan - Plan Referrals: Beverly Watson MD [Primary Care Provider] - 11/01/18 8:30 am (Please follow up as schedule)
[2018-10-24] MEDS: Doxycycline 100 MG CAPSULE PO SCH ×2 (08:45→20:48)
[2018-10-24] MEDS: Cyanocobalamin (B-12) 1,000 MCG TABLET PO SCH (08:46)
[2018-10-24] MEDS: Anastrozole 1 MG TABLET PO SCH (08:46)
[2018-10-24] MEDS: Multivit/Ca/Min/Fe/FA 1 TAB TABLET PO SCH (08:46)
[2018-10-24] MEDS: predniSONE 20 MG TABLET PO SCH (08:46)
[2018-10-24] MEDS: Insulin LISPRO 300 UNITS/3 ML VIAL SQ SCH ×4 (08:46→19:48)
[2018-10-24] MEDS: Ascorbic Acid 500 MG TABLET PO SCH ×2 (08:50→20:48)
[2018-10-24 09:41] LABS: Kappa Qnt Free Light Chains 6.39 mg/dL (0.33-1.94); Lambda Qnt Free Light Chains 2.75 mg/dL (0.57-2.63)
[2018-10-24] MEDS: Budesonide/Formoterol 160/4.5 1 PUFF INH IH SCH ×2 (10:30→22:27)
--- NOTE | 2018-10-24 12:54 | Nephrology Progress Note ---
Date of Encounter: 10/24/18 Time of Encounter: 12:54 - Assessment and Plan (1) Acute exacerbation of chronic obstructive pulmonary disease (COPD) Current Visit: No Status: Acute (2) Anemia Current Visit: No Status: Acute Qualifiers: Qualified Code(s): N18.3 - Chronic kidney disease, stage 3 (moderate); D63.1 - Anemia in chronic kidney disease (3) Hypercalcemia Current Visit: No Status: Acute (4) Acute renal failure superimposed on stage 4 chronic kidney disease Current Visit: Yes Status: Acute Qualifiers: Qualified Code(s): N17.9 - Acute kidney failure, unspecified; N18.4 - Chronic kidney disease, stage 4 (severe) Subjective Principal diagnosis: CKD4 Interval history: Patient seen 10/23/2018 and without new complaint. She is interested in a SNF. Objective - Vital Signs Vital signs: Vital Signs Temp Pulse Resp BP Pulse Ox 10/24/18 10:47 98 F 72 20 129/74 97 10/24/18 10:32 18 98 10/24/18 07:23 97.9 F 75 20 103/65 95 10/24/18 05:05 98.0 F 71 17 113/62 93 10/24/18 03:58 17 94 10/23/18 23:54 97.8 F 81 16 108/52 91 10/23/18 21:38 16 94 10/23/18 19:32 97.7 F 75 15 119/71 95 10/23/18 16:30 16 94 10/23/18 15:12 98.1 F 77 16 136/70 98 Intake and Output 10/23/18 10/24/18 10/24/18 23:59 07:59 15:59 Intake Total 240 / 240 Output Total 200 / 200 Balance -200 / -200 240 / 240 Intake: Oral 240 / 240 Output: Urine 200 / 200 Other: Meal Breakfast Percent of Meal Consumed 75% # Voids 1 2 Weight 80.5 kg Blood Glucose* 215 126 104 - Lab 10/23/18 05:56 10/23/18 05:56 Most recent lab results Calcium 10.9 mg/dL (8.6-10.3) H 10/23/18 05:56 Phosphorus 3.5 mg/dL (2.7-4.5) 10/20/18 13:57 Magnesium 2.1 mg/dL (1.6-2.6) 10/20/18 13:57 Urine Creatinine 54 mg/dL 10/21/18 22:03 Consult Discharge Plan - Plan Referrals: Beverly Watson MD [Primary Care Provider] - 11/01/18 8:30 am (Please follow up as schedule)
--- NOTE | 2018-10-24 12:55 | Internal Med Progress Note ---
Hospitalist Progress Note - Encounter Date of Encounter: 10/24/18 Time of Encounter: 08:00 - Subjective Interval History: Patient was seen and examined at bedside. Has no complaints. No overnight events. Denies constipation, nausea, vomiting, diarrhea. Has no dysuria, frequency or urge. tolerating PO diet. - Exam Vitals: Temp Pulse Resp BP Pulse Ox 98 F 72 20 129/74 97 10/24/18 10:47 10/24/18 10:47 10/24/18 10:47 10/24/18 10:47 10/24/18 10:47 Exam: General: Patient is alert, oriented, no acute distress, overweight Head: atraumatic, normocephalic, Eye: normal appearance, PERRL, no scleral icterus, no conjunctival injection ENT: mucous membranes moist, normal external ear exam Neck: normal inspection, trachea midline, full ROM, no carotid bruits Chest: normal inspection, symmetric chest rise Respiratory: Good respiratory effort. Bilateral breath sounds are clear with occasional wheezing, (improved) no crackles, or rhonchi. Cardiovascular: Regular rate and rhythm. s1 and s2 No clicks, rubs, gallops, or murmors. Abdomen: Bowel sounds present normoactive x-4 quadrants. Abdomen is soft, nondistended. no Epigastric tenderness. No guarding or rebound. No organomegaly noted, obese musculoskeletal: Spontaneously moving all extremities. trace edema, no calf tenderness Skin: warm, dry, intact. Neuro: Alert and oriented x4. No focal deficit, Psych: Patient's affect is normal - Assessment and Plan (1) Hypercalcemia Current Visit: Yes Status: Acute Assessment and Plan: most likely secondary to dehydration. calcium 12.9 improved to 10.7 and 10.9 ionized calcium 1.55 phosphorus 3.5 magnesium 2.1 vitamin D 78 PTH 4.5 - 13.7 SPEP, UPEP and K/L Free light chains - in process TSH 0.891 Nephrology recommendations appreciated. Discontinued vitamin D supplements on discharge (2) Acute renal failure superimposed on stage 3 chronic kidney disease Current Visit: Yes Status: Acute Assessment and Plan: most likely secondary to dehydration strict intake and out put creatinine was 1.66 in june 2018- trended up to 2.47 to 2.37 to 2.22 to 2.06 and now 1.89 will continue to monitor renal functions nephrology on board (3) Acute exacerbation of chronic obstructive pulmonary disease (COPD) Current Visit: No Status: Acute Assessment and Plan: Started on by mouth steroids for 3 days-finsihed course Doxycycline to complete a 7 day course Urine antigens- negative DuoNeb's Continue home inhalers Oxygen via nasal cannula to keep saturations above 90 (4) GERD (gastroesophageal reflux disease) Current Visit: No Status: Chronic Assessment and Plan: continue home dose protonix and ranitidine (5) Breast CA Current Visit: No Status: Chronic Assessment and Plan: continue home medications (6) DVT prophylaxis Current Visit: No Status: Acute Assessment and Plan: heaprin SC (7) Declining functional status Current Visit: Yes Status: Acute Assessment and Plan: MRI head ordered as per neurology recs OP Pt/Ot SW and CM consult MRI head: IMPRESSION: 1. No acute intracranial abnormality. No acute infarct. 2. Mild global parenchymal volume loss with moderate chronic microvascular ischemic change. (8) Hypokalemia Current Visit: Yes Status: Resolved Assessment and Plan: Resolved - Time Spent with Patient Total time spent is greater than 50% in coordination of care (as documented) at patient's floor/unit and/or counseling patient: Internal Medicine: Result - Labs CBC & Chem 7: 10/23/18 05:56 10/23/18 05:56 Consult Discharge Plan - Plan Referrals: Beverly Watson MD [Primary Care Provider] - 11/01/18 8:30 am (Please follow up as schedule) (2) Acute renal failure superimposed on stage 3 chronic kidney disease Qualifiers: Acute renal failure type: unspecified Qualified Code(s): N17.9 - Acute kidney failure, unspecified; N18.3 - Chronic kidney disease, stage 3 (moderate) (4) GERD (gastroesophageal reflux disease) Qualifiers: Esophagitis presence: with esophagitis Qualified Code(s): K21.0 - Gastro- esophageal reflux disease with esophagitis (5) Breast CA Qualifiers: Breast location: unspecified site of breast Estrogen receptor status: unspecified Patient sex: female Laterality: unspecified laterality Qualified Code(s): C50.919 - Malignant neoplasm of unspecified site of unspecified female breast
[2018-10-24 14:23] LABS: Albumin 3.9 g/dL (3.5-5.7); Calcium 10.6 mg/dL (8.6-10.3); Phosphorous 2.7 mg/dL (2.7-4.5); Potassium 4.1 mEq/L (3.5-5.1)
[2018-10-24] MEDS: Loratadine 10 MG TABLET PO PRN (17:21)
[2018-10-24 23:24] LABS: Alpha 2 Globulin (PEP) 1.04 g/dL (0.48-1.05); Beta Globulin (PEP) 0.63 g/dL (0.48-1.10)
[2018-10-25] MEDS: Ipratropium/Albuterol Neb 3 ML IH SCH ×3 (03:38→15:31)
[2018-10-25 04:48] LABS: Albumin 3.7 g/dL (3.5-5.7); Calcium 10.2 mg/dL (8.6-10.3); Phosphorous 2.5 mg/dL (2.7-4.5); Potassium 3.7 mEq/L (3.5-5.1)
[2018-10-25 04:54] LABS: Urine Collection Duration RANDOM hr; Urine Collection Volume RANDOM mL
[2018-10-25] MEDS: *HR* Heparin 5,000 UNIT/ML VIAL SQ SCH ×2 (05:55→17:07)
[2018-10-25] MEDS: Insulin LISPRO 300 UNITS/3 ML VIAL SQ SCH ×2 (08:31→12:27)
[2018-10-25] MEDS: Cyanocobalamin (B-12) 1,000 MCG TABLET PO SCH (08:32)
[2018-10-25] MEDS: Doxycycline 100 MG CAPSULE PO SCH (08:32)
[2018-10-25] MEDS: Multivit/Ca/Min/Fe/FA 1 TAB TABLET PO SCH (08:32)
[2018-10-25] MEDS: Ascorbic Acid 500 MG TABLET PO SCH (08:32)
[2018-10-25] MEDS: Anastrozole 1 MG TABLET PO SCH (08:32)
[2018-10-25 10:03] LABS: IFE Reflexed NOT DONE
--- NOTE | 2018-10-25 10:23 | Discharge Summary ---
- NOTES TO OUTPATIENT PROVIDER Notes to Outpatient Provider: follow up with nephrology for hypercalcemia ( labs in process), follow with PCP for MBS Orders not resulted at time of discharge: Pending orders 10/21/18 22:03 Immunofixation,Urine (BJP) AM 0400 Date of Encounter: 10/25/18 Time of Encounter: 10:17 - Discharge Diagnosis (1) Hypercalcemia Priority: Primary Status: Acute (2) Acute renal failure superimposed on stage 3 chronic kidney disease Priority: Secondary Status: Acute Qualifiers: Acute renal failure type: unspecified Qualified Code(s): N17.9 - Acute kidney failure, unspecified; N18.3 - Chronic kidney disease, stage 3 (moderate) (3) Acute exacerbation of chronic obstructive pulmonary disease (COPD) Priority: Secondary Status: Acute (4) GERD (gastroesophageal reflux disease) Priority: Secondary Status: Chronic Qualifiers: Esophagitis presence: with esophagitis Qualified Code(s): K21.0 - Gastro- esophageal reflux disease with esophagitis (5) Breast CA Priority: Secondary Status: Chronic Qualifiers: Breast location: unspecified site of breast Estrogen receptor status: unspecified Patient sex: female Laterality: unspecified laterality Qualified Code(s): C50.919 - Malignant neoplasm of unspecified site of unspec ified female breast (6) DVT prophylaxis Priority: Secondary Status: Acute (7) Declining functional status Priority: Secondary Status: Acute (8) Hypokalemia Priority: Secondary Status: Resolved Hospital course: "Ms. Montes is a 83 year old female with history of COPD on 3 L of O2 at baseline CPAP at night, NIDDM diabetes, breast cancer, CKD 3 and iron deficiency anemia presented to the ED as per academic counselor request for abnormal labs. as per keyana she had a 3 month follow up labs performed and was told to come to the ED. she denies headache, svision loss, N/V/D, fever, chills, chest pain, palpitations, muscle cramps however she does feel more constipated from her baseline. she has no other complaints. her constipation is relieved with stool softeners. she denies frequency, dysuria, hematuria. Walks with a cane at baseline. she reports that she was hospitalized for similar symptoms/lab abnormalities in the past one time however she cannot recall what the diagnosis was" Patient presented with above presentation. Nephrology was consulted and she was started on IV hydration with improvement in her creatinine and calcium. Multiple myeloma and amyloidosis workup ordered by the nephrology team and is in process. For PCP to follow results. Nursing staff provided patient with follow-up appointment with her academic counselor. Vitamin D was discontinued on discharge as per academic counselor. calcium 12.9 improved to 10.2 on discharge. ionized calcium 1.55 on admission. phosphorus 3.5, magnesium 2.1, vitamin D 78, PTH 4.5 - 13.7 adn TSH 0.891. SPEP, UPEP and K/L Free light chains - in process Renal functions improved, creatinine trended down to 1.78 with GFR of 33. She was counseled on importance of oral hydration. Our plan was held as blood pressure was controlled and renal functions were improving. For our to be restarted as per nephrology/PCP discretion. She had wheezing on admission. She was started on doxycycline 100 mg twice a day and is to complete a seven-day course. She was also treated with short course of steroids- respiratory status returned back to baseline. MRI of the head performed as daughter was concerned with intermittent confusions at home. IMPRESSION: 1. No acute intracranial abnormality. No acute infarct. 2. Mild global parenchymal volume loss with moderate chronic microvascular ischemic change. Nursing staff provided patient with appointment with her neurologist Dr. Gonzales Physical therapy and rehabilitation or consulted and recommended [facility]. I discussed the plan of care with patient and daughter. customer sales service manager and social work discuss different facilities with patient and daughter. Discharge discussed with: patient, family, nurse, social work, case management, hospice care sales consultant - Time Spent with Patient Total time spent providing and/or coordinating discharge services: Greater than 30 minutes (35) - Discharge Medications Prescriptions: Doxycycline 100 mg PO BID 2 Days #4 capsule Home Medications: Anastrozole [Arimidex] 1 mg PO DAILY 07/20/16 [History] Denosumab [Prolia (For Outpatient Infusion)] 60 mg SQ [id number] 07/20/16 [History] Fluticasone Propionate Nasal [Flonase] 2 spr NS DAILY PRN 07/20/16 [History] Ipratropium/Albuterol Sulfate [Combivent Respimat Inhal [place]] 1 puff IH QID PRN 07/20/16 [History] Loratadine [Claritin] 10 mg PO DAILY PRN 07/20/16 [History] Pantoprazole Sodium [Protonix] 40 mg PO BID 07/20/16 [History] Ranitidine HCl [Heartburn Relief] 150 mg PO DAILY PRN 07/20/16 [History] Albuterol Sulfate [Proair Hfa] 2 puff IH Q4H PRN 02/11/17 [History] Rosuvastatin [Crestor] 40 mg PO HS 02/11/17 [History] Budesonide/Formoterol 160/4.5 [Symbicort 160/4.5] 2 puff IH BID 11/20/17 [History] Duloxetine HCl [Cymbalta] 60 mg PO DAILY 11/21/17 [History] Albuterol Neb [Proventil Neb] 2.5 mg IH Q4H PRN 04/07/18 [History] Biotin 5,000 mcg PO DAILY 04/07/18 [History] Multivitamin [One Daily Multivitamin] 1 each PO DAILY 04/07/18 [History] Tiotropium [Spiriva] 2 puff IH DAILY 04/07/18 [History] Ascorbate Calcium [Vitamin C] 500 mg PO BID 07/18/18 [History] Polyethylene Glycol 3350 [MiraLAX] 17 gm PO DAILY PRN 07/18/18 [History] Triamcinolone Acet 0.1% CRM [Kenalog] 1 appl TP DAILY 07/18/18 [History] Donepezil [Aricept] 5 mg PO DAILY 10/23/18 [History] Mirabegron [Myrbetriq] 50 mg PO DAILY 10/23/18 [History] glipiZIDE [Glipizide] 10 mg PO DAILY 10/23/18 [History] Doxycycline 100 mg PO BID 2 Days #4 capsule 10/25/18 [Rx] Allergies/Adverse Reactions: Allergy/AdvReac Type Severity Reaction Status Date / Time alendronate sodium Allergy See Verified 06/17/18 11:10 [From Fosamax] Comments pregabalin [From Lyrica] Allergy Swelling Verified 06/17/18 11:10 of Lip/Tongue/Throat RISSA Inhibitors AdvReac Cough Verified 06/17/18 11:10 acetaminophen [From Percocet] AdvReac Nausea Verified 06/17/18 11:10 clarithromycin [From Biaxin] AdvReac Nausea Verified 06/17/18 11:10 lisinopril [From Prinivil] AdvReac Nausea Verified 06/17/18 11:10 Oxycodone [From Percocet] AdvReac Nausea Verified 06/17/18 11:10 red wine Allergy Anaphylaxis Uncoded 06/17/18 11:10 Date of admission: 10/22/18 12:00 Primary care physician: Beverly Watson MD Consults: 10/20/18 17:10 Consult to Nephrology [CONS] Routine Consulting Provider: Kidney Toshia/BHAVYA/JEANETTE/JOHN Reason for Consult: hypercalcemia Call Completed: Yes 10/22/18 14:53 Consult to Case Management [CONS] Routine Comment: Consult to Physical Therapy [CONS] Routine Comment: Evaluate, develop and implement POC Reason for Consult: dispostion Does patient have active BEDREST order?: No Is patient medically & hemodynamically stable?: Yes Patient assessed for mobility or mobilized this visit?: Yes OT [Consult to Occupational Therapy] [CONS] Routine Comment: Evaluate, develop and implement POC Reason for Consult: disposition Does patient have active BEDREST order?: No Is patient medically & hemodynamically stable?: Yes Patient assessed for mobility or mobilized this visit?: Yes - Constitutional Vitals: Temp Pulse Resp BP Pulse Ox 98.3 F 72 20 92/81 98 10/25/18 07:59 10/25/18 07:59 10/25/18 07:59 10/25/18 07:59 10/25/18 07:59 Exam: General: Patient is alert, oriented, no acute distress, overweight Head: atraumatic, normocephalic, Eye: normal appearance, PERRL, no scleral icterus, no conjunctival injection ENT: mucous membranes moist, normal external ear exam Neck: normal inspection, trachea midline, full ROM, no carotid bruits Chest: normal inspection, symmetric chest rise Respiratory: Good respiratory effort. Bilateral breath sounds are clear with occasional wheezing, (improved) no crackles, or rhonchi. Cardiovascular: Regular rate and rhythm. s1 and s2 No clicks, rubs, gallops, or murmors. Abdomen: Bowel sounds present normoactive x-4 quadrants. Abdomen is soft, nondistended. no Epigastric tenderness. No guarding or rebound. No organomegaly noted, obese musculoskeletal: Spontaneously moving all extremities. trace edema, no calf tenderness Skin: warm, dry, intact. Neuro: Alert and oriented x4. No focal deficit, Psych: Patient's affect is normal - Patient Status Disposition: Transfer SNF Condition: Good Functional capacity at discharge: uses cane/walker Overall status at discharge: patient is progressing back to baseline - Discharge Instructions Follow Up With: Beverly Watson MD [Primary Care Provider] - 11/01/18 8:30 am (Please follow up as schedule) - Diet and Activity Activity: as per physical therapy, increase activity as tolerated Diet: diabetic diet
[2018-10-25] MEDS: Budesonide/Formoterol 160/4.5 1 PUFF INH IH SCH (10:25)
--- NOTE | 2018-10-25 10:37 | Physician Discharge Referral ---
ExtendedCare Referral Info Provider in Charge after Transfer: PCP Institutional Level of Care: Skilled - Diagnosis (1) Hypercalcemia Priority: Primary Status: Acute (2) Acute renal failure superimposed on stage 3 chronic kidney disease Priority: Secondary Status: Acute (3) Acute exacerbation of chronic obstructive pulmonary disease (COPD) Priority: Secondary Status: Acute (4) GERD (gastroesophageal reflux disease) Priority: Secondary Status: Chronic (5) Breast CA Priority: Secondary Status: Chronic (6) DVT prophylaxis Priority: Secondary Status: Acute (7) Declining functional status Priority: Secondary Status: Acute (8) Hypokalemia Priority: Secondary Status: Resolved Prognosis: Good Aware of Diagnosis: Patient Aware of Prognosis: Family - Transfer Medications Prescriptions: Doxycycline 100 mg PO BID 2 Days #4 capsule Home Medications: Anastrozole [Arimidex] 1 mg PO DAILY 07/20/16 [History] Denosumab [Prolia (For Outpatient Infusion)] 60 mg SQ [id number] 07/20/16 [History] Fluticasone Propionate Nasal [Flonase] 2 spr NS DAILY PRN 07/20/16 [History] Ipratropium/Albuterol Sulfate [Combivent Respimat Inhal [place]] 1 puff IH QID PRN 07/20/16 [History] Loratadine [Claritin] 10 mg PO DAILY PRN 07/20/16 [History] Pantoprazole Sodium [Protonix] 40 mg PO BID 07/20/16 [History] Ranitidine HCl [Heartburn Relief] 150 mg PO DAILY PRN 07/20/16 [History] Albuterol Sulfate [Proair Hfa] 2 puff IH Q4H PRN 02/11/17 [History] Rosuvastatin [Crestor] 40 mg PO HS 02/11/17 [History] Budesonide/Formoterol 160/4.5 [Symbicort 160/4.5] 2 puff IH BID 11/20/17 [History] Duloxetine HCl [Cymbalta] 60 mg PO DAILY 11/21/17 [History] Albuterol Neb [Proventil Neb] 2.5 mg IH Q4H PRN 04/07/18 [History] Biotin 5,000 mcg PO DAILY 04/07/18 [History] Multivitamin [One Daily Multivitamin] 1 each PO DAILY 04/07/18 [History] Tiotropium [Spiriva] 2 puff IH DAILY 04/07/18 [History] Ascorbate Calcium [Vitamin C] 500 mg PO BID 07/18/18 [History] Polyethylene Glycol 3350 [MiraLAX] 17 gm PO DAILY PRN 07/18/18 [History] Triamcinolone Acet 0.1% CRM [Kenalog] 1 appl TP DAILY 07/18/18 [History] Donepezil [Aricept] 5 mg PO DAILY 10/23/18 [History] Mirabegron [Myrbetriq] 50 mg PO DAILY 10/23/18 [History] glipiZIDE [Glipizide] 10 mg PO DAILY 10/23/18 [History] Doxycycline 100 mg PO BID 2 Days #4 capsule 10/25/18 [Rx] Allergies/Adverse Reactions: Allergy/AdvReac Type Severity Reaction Status Date / Time alendronate sodium Allergy See Verified 06/17/18 11:10 [From Fosamax] Comments pregabalin [From Lyrica] Allergy Swelling Verified 06/17/18 11:10 of Lip/Tongue/Throat RISSA Inhibitors AdvReac Cough Verified 06/17/18 11:10 acetaminophen [From Percocet] AdvReac Nausea Verified 06/17/18 11:10 clarithromycin [From Biaxin] AdvReac Nausea Verified 06/17/18 11:10 lisinopril [From Prinivil] AdvReac Nausea Verified 06/17/18 11:10 Oxycodone [From Percocet] AdvReac Nausea Verified 06/17/18 11:10 red wine Allergy Anaphylaxis Uncoded 06/17/18 11:10 - Respiratory Orders Oxygen / L per min (3) Smoking Cessation: Smoking cessation has been advised. For more information, call the [place] Tobacco Quit Line at 1-993-HNJO-NOW. - Mobility Orders Ambulate - Rehabiliation Orders Rehab Potential: Good Rehab Orders: Sternal Precautions, ROM Exercises, Evaluation for Physical Therapy, Evaluation for Occupational Therapy - Diet Orders Renal (diabetic) CERTIFICATION: I certify that the transfer of the above named patient to an Extended Care Facility is necessary for the continuing treatment of the diagnosis listed. The above information is true and accurate reflection of patient's current condition. Confidential - Redisclosure prohibited without a patient's written consent.
[2018-10-25 12:09] VITALS: BP 111/65
== END 2018-10-25 17:50 | DRG 683 ==
LOC: EMEROOARM 13:08 → 2ANU 13:08 → SUATTDRO 17:30 → 2ANU 20:28
PROVIDERS: ADMIT Internal Medicine; ATTEND Internal Medicine

== ENCOUNTER 2021-02-19 14:21 | Inpatient (IN) ==
[2021-02-19] MEDS ORDERED: Isovue-370 500 ML BOTTLE IVP ONE (15:02)
[2021-02-19 15:59] LABS: Calcium 13.1 mg/dL (8.6-10.3); Potassium 4.3 mEq/L (3.5-5.1); Troponin I 0.03 ng/mL (< 0.04)
[2021-02-19] MEDS ORDERED: 0.9 % Sodium Chloride 1,000 ML IVC ONE (16:09)
[2021-02-19 16:13] LABS: Basophils % 0.2 %; Eosinophils # 0.1 K/mcL (0.0-0.6); Eosinophils % 0.7 %; Hemoglobin 11.3 g/dL (11.5-15.4); Immature Granulocytes % 0.5 % (0-4); Lymphocytes # 1.4 K/mcL (0.6-4.6); Lymphocytes % 16.8 %; Mean Corpuscular HGB Conc 32.3 g/dL (31.6-35.5); Mean Corpuscular Hemoglobin 30.4 pg (28.0-33.3); Mean Corpuscular Volume 94.1 fL (83.0-100.0); Mean Platelet Volume 9.6 fL (9.4-12.4); Monocytes % 12.3 %; Neutrophils # 5.6 K/mcL (1.6-8.9); Platelet Count 242 K/mcL (140-400); Red Blood Count 3.72 M/mcL (3.82-4.97); Red Cell Distribution Width 14.5 % (11.5-14.5); Segmented Neutrophils % 69.5 %
[2021-02-19 16:46] LABS: Bilirubin,Urine Negative (Negative); Blood,Urine Negative (Negative); Budding Yeast,Urine Few per hpf (None Seen); Clarity,Urine Turbid (Clear); Color,Urine Light-Yellow (Yellow); Glucose,Urine (UA) Normal (Normal); Ketones,Urine Negative (Negative); Leukocyte Esterase,Urine Small (Negative); Nitrite,Urine Negative (Negative); Protein,Urine 30 mg/dL (Neg-Trace); RBC,Urine 0-3 per hpf (0-3); Specific Gravity,Urine 1.013 (1.010-1.025); Squamous Epithelial Cell,Urine Few per hpf (None-Few); Urobilinogen,Urine Normal (Normal); WBC,Urine 15-30 per hpf (0-3)
[2021-02-19 16:47] LABS: Albumin 4.4 g/dL (3.5-5.7); Albumin/Globulin Ratio 1.4 (1.1-2.2); Bilirubin,Direct 0.1 mg/dL (0.0-0.2); Bilirubin,Indirect 0.5 mg/dL (0.0-1.0); Bilirubin,Total 0.6 mg/dL (0.3-1.0); Globulin 3.2 g/dL (2.4-3.5); Total Protein 7.6 g/dL (6.4-8.9)
[2021-02-19] MEDS ORDERED: Naloxone 0.4 MG/ML INJ IVP PRN (17:53)
[2021-02-19] MEDS: 0.9 % Sodium Chloride 1,000 ML IVC SCH (22:35)
[2021-02-19] MEDS ORDERED: Albuterol 2.5 MG/3 ML NEBULIZER IH PRN (22:43)
[2021-02-19] MEDS ORDERED: D5% in Water 1,000 ML IVC PRN (23:11)
[2021-02-19] MEDS ORDERED: *HR* Dextrose 50 % in Water (Vial) 50 ML VIAL IVP PRN (23:11)
[2021-02-19] MEDS ORDERED: Dextrose Gel 15 GM/37.5 ML TUBE PO PRN ×2 (23:11)
[2021-02-20 01:09] LABS: Basophils % 0.4 %; Eosinophils # 0.1 K/mcL (0.0-0.6); Eosinophils % 1.2 %; Hematocrit 35.7 % (35.3-44.9); Hemoglobin 11.5 g/dL (11.5-15.4); Immature Granulocytes % 0.6 % (0-4); Lymphocytes # 1.6 K/mcL (0.6-4.6); Lymphocytes % 17.8 %; Mean Corpuscular HGB Conc 32.2 g/dL (31.6-35.5); Mean Corpuscular Hemoglobin 30.5 pg (28.0-33.3); Mean Corpuscular Volume 94.7 fL (83.0-100.0); Mean Platelet Volume 9.6 fL (9.4-12.4); Monocytes # 1.2 K/mcL (0.0-1.3); Monocytes % 12.9 %; Platelet Count 238 K/mcL (140-400); Red Blood Count 3.77 M/mcL (3.82-4.97); Red Cell Distribution Width 14.5 % (11.5-14.5); Segmented Neutrophils % 67.1 %; White Blood Count 8.9 K/mcL (4.3-11.1)
[2021-02-20 01:29] LABS: Potassium 3.6 mEq/L (3.5-5.1)
[2021-02-20] MEDS: Insulin LISPRO 300 UNITS/3 ML VIAL SUBQ SCH ×5 (01:36→21:23)
[2021-02-20] MEDS: *HR* HYDROcodone/Acet 5/325 mg TABLET PO PRN ×2 (04:35→16:16)
[2021-02-20] MEDS ORDERED: Loratadine 10 MG TABLET PO PRN (07:26)
[2021-02-20] MEDS ORDERED: OLMESARTAN MEDOXOMIL 5 MG PO SCH (09:00)
[2021-02-20] MEDS: 0.9 % Sodium Chloride 1,000 ML IVC SCH (09:14)
[2021-02-20] MEDS ORDERED: Fluticasone Propionate Nasal 50 MCG/SPRAY BOTTLE NS PRN (13:20)
[2021-02-20] MEDS: cefTRIAXone 1,000 MG in Water for inj. (sterile) 10 ML IVP SCH (16:16)
[2021-02-20] MEDS: Ondansetron ODT 4 MG TAB.RAPDIS PO SCH (18:07)
[2021-02-20] MEDS: REVEFENACIN 175 MCG/3 ML IH SCH (18:09)
[2021-02-20] MEDS ORDERED: NON-FORMULARY MEDICATION 1 EACH EACH (Formoterol Fumarate [Perforomist] 20 MCG/2 ML Vial.N IH SCH (21:00)
[2021-02-20] MEDS: IPRATROPIUM BROMIDE NS SCH (21:44)
[2021-02-20] MEDS ORDERED: FORMOTEROL FUMARATE 20 MCG/2 ML IH SCH (22:00)
[2021-02-21] MEDS: Ondansetron ODT 4 MG TAB.RAPDIS PO SCH ×4 (01:07→17:47)
[2021-02-21] MEDS: Insulin LISPRO 300 UNITS/3 ML VIAL SUBQ SCH ×4 (07:52→20:26)
[2021-02-21] MEDS: BuPROPion XL (24 HR) 150 MG TABLET PO SCH (08:22)
[2021-02-21] MEDS: IPRATROPIUM BROMIDE NS SCH ×2 (08:24→20:30)
[2021-02-21] MEDS ORDERED: Budesonide Neb 0.25 MG/2 ML IH SCH (09:00)
[2021-02-21 09:04] LABS: Basophils % 0.5 %; Eosinophils # 0.1 K/mcL (0.0-0.6); Eosinophils % 1.5 %; Hemoglobin 10.3 g/dL (11.5-15.4); Immature Granulocytes % 0.8 % (0-4); Lymphocytes # 1.7 K/mcL (0.6-4.6); Lymphocytes % 22.1 %; Mean Corpuscular HGB Conc 32.2 g/dL (31.6-35.5); Mean Corpuscular Hemoglobin 30.8 pg (28.0-33.3); Mean Corpuscular Volume 95.8 fL (83.0-100.0); Mean Platelet Volume 9.5 fL (9.4-12.4); Monocytes % 13.3 %; Neutrophils # 4.8 K/mcL (1.6-8.9); Platelet Count 238 K/mcL (140-400); Red Blood Count 3.34 M/mcL (3.82-4.97); Red Cell Distribution Width 14.6 % (11.5-14.5); Segmented Neutrophils % 61.8 %; White Blood Count 7.8 K/mcL (4.3-11.1)
[2021-02-21 09:21] LABS: Calcium 10.1 mg/dL (8.6-10.3); Potassium 3.4 mEq/L (3.5-5.1)
[2021-02-21] MEDS: Budesonide Neb 0.5 MG/2 ML IH SCH (09:30)
[2021-02-21] MEDS ORDERED: 0.9 % Sodium Chloride 1,000 ML IVC SCH (15:00)
[2021-02-21] MEDS: cefTRIAXone 1,000 MG in Water for inj. (sterile) 10 ML IVP SCH (15:05)
[2021-02-21] MEDS: REVEFENACIN 175 MCG/3 ML IH SCH (17:48)
[2021-02-21] MEDS: *HR* HYDROcodone/Acet 5/325 mg TABLET PO PRN (20:20)
[2021-02-22] MEDS: Ondansetron ODT 4 MG TAB.RAPDIS PO SCH ×4 (00:38→17:10)
[2021-02-22] MEDS: BuPROPion XL (24 HR) 150 MG TABLET PO SCH (08:16)
[2021-02-22] MEDS: Insulin LISPRO 300 UNITS/3 ML VIAL SUBQ SCH ×4 (08:16→21:11)
[2021-02-22] MEDS: IPRATROPIUM BROMIDE NS SCH ×2 (08:28→21:13)
[2021-02-22] MEDS: Budesonide Neb 0.5 MG/2 ML IH SCH (09:50)
[2021-02-22] MEDS: *HR* HYDROcodone/Acet 5/325 mg TABLET PO PRN ×2 (09:59→19:21)
[2021-02-22] MEDS: cefTRIAXone 1,000 MG in Water for inj. (sterile) 10 ML IVP SCH (15:04)
[2021-02-22] MEDS ORDERED: REVEFENACIN 175 MCG/3 ML IH SCH (22:00)
[2021-02-23] MEDS: Ondansetron ODT 4 MG TAB.RAPDIS PO SCH ×3 (00:02→11:55)
[2021-02-23 06:06] LABS: Basophils # 0.1 K/mcL (0.0-0.2); Basophils % 0.6 %; Eosinophils # 0.2 K/mcL (0.0-0.6); Eosinophils % 1.9 %; Hematocrit 34.2 % (35.3-44.9); Hemoglobin 10.7 g/dL (11.5-15.4); Immature Granulocytes % 0.7 % (0-4); Lymphocytes # 2.7 K/mcL (0.6-4.6); Lymphocytes % 27.6 %; Mean Corpuscular HGB Conc 31.3 g/dL (31.6-35.5); Mean Corpuscular Hemoglobin 30.3 pg (28.0-33.3); Mean Corpuscular Volume 96.9 fL (83.0-100.0); Mean Platelet Volume 9.4 fL (9.4-12.4); Monocytes # 1.1 K/mcL (0.0-1.3); Neutrophils # 5.7 K/mcL (1.6-8.9); Platelet Count 263 K/mcL (140-400); Red Blood Count 3.53 M/mcL (3.82-4.97); Red Cell Distribution Width 14.6 % (11.5-14.5); Segmented Neutrophils % 58.2 %; White Blood Count 9.8 K/mcL (4.3-11.1)
[2021-02-23 06:23] LABS: Calcium 9.8 mg/dL (8.6-10.3); Potassium 3.6 mEq/L (3.5-5.1)
[2021-02-23] MEDS ORDERED: 0.9 % Sodium Chloride 1,000 ML IVC SCH (08:00)
[2021-02-23] MEDS: Insulin LISPRO 300 UNITS/3 ML VIAL SUBQ SCH ×2 (08:44→11:53)
[2021-02-23] MEDS: BuPROPion XL (24 HR) 150 MG TABLET PO SCH (08:47)
[2021-02-23] MEDS: IPRATROPIUM BROMIDE NS SCH (09:13)
[2021-02-23] MEDS: Budesonide Neb 0.5 MG/2 ML IH SCH (10:10)
[2021-02-23 11:54] VITALS: BP 132/74
[2021-02-23] MEDS: *HR* HYDROcodone/Acet 5/325 mg TABLET PO PRN (11:55)
== END 2021-02-23 15:33 | DRG 683 ==
LOC: 3ANU 14:21 → EMEROOARM 14:21 → 3ANU 20:47
PROVIDERS: ADMIT Internal Medicine; ATTEND Internal Medicine

== ENCOUNTER 2021-08-05 17:50 | Inpatient (IN) ==
[2021-08-05 20:18] LABS: Bacteria,Urine Few per hpf (None-Few); Bilirubin,Urine Negative (Negative); Blood,Urine Negative (Negative); Clarity,Urine Turbid (Clear); Color,Urine Light-Yellow (Yellow); Glucose,Urine (UA) Normal (Normal); Ketones,Urine Negative (Negative); Leukocyte Esterase,Urine Large (Negative); Nitrite,Urine Positive (Negative); PH,Urine 7.5 pH Units (5.0-8.0); Protein,Urine Trace mg/dL (Neg-Trace); RBC,Urine 50-100 per hpf (0-3); Specific Gravity,Urine 1.015 (1.010-1.025); Urobilinogen,Urine Normal (Normal); WBC,Urine 15-30 per hpf (0-3)
[2021-08-05 20:40] LABS: Basophils # 0.1 K/mcL (0.0-0.2); Basophils % 0.9 %; Eosinophils # 0.3 K/mcL (0.0-0.6); Hematocrit 34.6 % (35.3-44.9); Hemoglobin 10.8 g/dL (11.5-15.4); Immature Granulocytes % 0.3 % (0-4); Lymphocytes # 2.7 K/mcL (0.6-4.6); Lymphocytes % 35.3 %; Mean Corpuscular HGB Conc 31.2 g/dL (31.6-35.5); Mean Corpuscular Hemoglobin 29.6 pg (28.0-33.3); Mean Corpuscular Volume 94.8 fL (83.0-100.0); Mean Platelet Volume 9.8 fL (9.4-12.4); Monocytes # 0.9 K/mcL (0.0-1.3); Monocytes % 12.1 %; Neutrophils # 3.6 K/mcL (1.6-8.9); Platelet Count 252 K/mcL (140-400); Red Blood Count 3.65 M/mcL (3.82-4.97); Red Cell Distribution Width 14.4 % (11.5-14.5); Segmented Neutrophils % 47.4 %; White Blood Count 7.5 K/mcL (4.3-11.1)
[2021-08-05 20:55] LABS: BUN/Creatinine Ratio 13 (6-26); Blood Urea Nitrogen 30 mg/dL (8-23); Calcium 9.3 mg/dL (8.6-10.3); Carbon Dioxide 24 mEq/L (23-29); Chloride 110 mEq/L (98-107); Glucose 89 mg/dL (70-105); Osmolality,Calculated 298 (280-300); Potassium 4.7 mEq/L (3.5-5.1); Sodium 141 mEq/L (136-145); Troponin I < 0.03 ng/mL (< 0.04); eGFR For African Americans 24 (> 60); eGFR For Non-African Americans 20 (> 60)
[2021-08-05] MEDS ORDERED: cefTRIAXone 1,000 MG in 0.9 % Sodium Chloride Mini Bag 100 ML IVPB ONE (21:16)
[2021-08-05] MEDS ORDERED: Acetaminophen 325 MG TABLET PO ONE (23:36)
[2021-08-06] MEDS ORDERED: Ondansetron 4 MG/2 ML VIAL IVP PRN (00:10)
[2021-08-06] MEDS ORDERED: Naloxone 0.4 MG/ML INJ IVP PRN (00:10)
[2021-08-06 02:30] LABS: Basophils # 0.1 K/mcL (0.0-0.2); Basophils % 0.7 %; Eosinophils # 0.3 K/mcL (0.0-0.6); Eosinophils % 3.3 %; Hematocrit 34.3 % (35.3-44.9); Hemoglobin 10.6 g/dL (11.5-15.4); Immature Granulocytes % 0.2 % (0-4); Lymphocytes % 34.6 %; Mean Corpuscular HGB Conc 30.9 g/dL (31.6-35.5); Mean Corpuscular Hemoglobin 29.8 pg (28.0-33.3); Mean Corpuscular Volume 96.3 fL (83.0-100.0); Monocytes # 1.1 K/mcL (0.0-1.3); Monocytes % 12.4 %; Neutrophils # 4.2 K/mcL (1.6-8.9); Platelet Count 242 K/mcL (140-400); Red Blood Count 3.56 M/mcL (3.82-4.97); Red Cell Distribution Width 14.4 % (11.5-14.5); Segmented Neutrophils % 48.8 %; White Blood Count 8.5 K/mcL (4.3-11.1)
[2021-08-06 02:53] LABS: Calcium 8.8 mg/dL (8.6-10.3); Potassium 3.7 mEq/L (3.5-5.1)
[2021-08-06] MEDS ORDERED: Furosemide 40 MG/4 ML VIAL IVP ONE (03:28)
[2021-08-06] MEDS ORDERED: Perflutren Lipid Microsphere 1.3 ML in 0.9 % Sodium Chloride 8.7 ML IVP PRN (03:55)
[2021-08-06] MEDS ORDERED: Dextrose Gel 15 GM/37.5 ML TUBE PO PRN ×2 (03:56)
[2021-08-06] MEDS ORDERED: D5% in Water 1,000 ML IVC PRN (03:56)
[2021-08-06] MEDS ORDERED: *HR* Dextrose 50 % in Water (Syg) 50 ML SYRINGE IVP PRN (03:56)
[2021-08-06] MEDS: *HR* Heparin 5,000 UNIT/ML VIAL SQ SCH ×3 (05:49→21:18)
[2021-08-06 06:09] LABS: Estimated Average Glucose 126 mg/dl
[2021-08-06] MEDS: Insulin LISPRO 300 UNITS/3 ML VIAL SUBQ SCH ×4 (08:20→19:52)
[2021-08-06] MEDS ORDERED: cefTRIAXone 1,000 MG in 0.9 % Sodium Chloride Mini Bag 100 ML IVPB SCH (09:00)
[2021-08-06] MEDS ORDERED: Insulin DETEMIR 100 UNIT/ML X5UNITS SUBQ SCH (09:00)
[2021-08-06 09:17] LABS: Magnesium 2.1 mg/dL (1.6-2.6)
[2021-08-06] MEDS ORDERED: Ertapenem 500 MG in 0.9 % Sodium Chloride Mini Bag 100 ML IVPB SCH (10:00)
[2021-08-06] MEDS ORDERED: Ipratropium/Albuterol Neb 3 ML IH PRN (17:47)
[2021-08-06] MEDS: Furosemide 20 MG/2 ML VIAL IVP SCH (17:54)
[2021-08-07] MEDS ORDERED: Isovue-370 500 ML BOTTLE IVP ONE (00:28)
[2021-08-07 01:50] LABS: Potassium 3.9 mEq/L (3.5-5.1)
[2021-08-07 02:51] LABS: Basophils # 0.1 K/mcL (0.0-0.2); Basophils % 0.6 %; Eosinophils # 0.3 K/mcL (0.0-0.6); Eosinophils % 3.1 %; Hematocrit 35.4 % (35.3-44.9); Hemoglobin 11.2 g/dL (11.5-15.4); Immature Granulocytes % 0.2 % (0-4); Lymphocytes # 2.8 K/mcL (0.6-4.6); Lymphocytes % 34.7 %; Mean Corpuscular HGB Conc 31.6 g/dL (31.6-35.5); Mean Corpuscular Hemoglobin 29.7 pg (28.0-33.3); Mean Corpuscular Volume 93.9 fL (83.0-100.0); Mean Platelet Volume 9.7 fL (9.4-12.4); Monocytes # 0.9 K/mcL (0.0-1.3); Monocytes % 11.1 %; Platelet Count 286 K/mcL (140-400); Red Blood Count 3.77 M/mcL (3.82-4.97); Red Cell Distribution Width 14.6 % (11.5-14.5); Segmented Neutrophils % 50.3 %
[2021-08-07] MEDS: *HR* Heparin 5,000 UNIT/ML VIAL SQ SCH ×3 (05:48→21:17)
[2021-08-07] MEDS: Insulin LISPRO 300 UNITS/3 ML VIAL SUBQ SCH ×4 (08:11→21:11)
[2021-08-07] MEDS: Furosemide 20 MG/2 ML VIAL IVP SCH (08:42)
[2021-08-07] MEDS ORDERED: Azelastine 0.1% Nasal Spray 30 ML BOTTLE NS PRN (08:51)
[2021-08-07] MEDS ORDERED: amLODIPine 5 MG TABLET PO SCH (09:00)
[2021-08-07] MEDS: BuPROPion XL (24 HR) 150 MG TABLET PO SCH (11:06)
[2021-08-07] MEDS: Albuterol 2.5 MG/3 ML NEBULIZER AER SCH (21:37)
[2021-08-07] MEDS: Budesonide Neb 0.25 MG/2 ML IH SCH (21:37)
[2021-08-08] MEDS: Albuterol 2.5 MG/3 ML NEBULIZER AER SCH ×4 (04:14→20:56)
[2021-08-08] MEDS: *HR* Heparin 5,000 UNIT/ML VIAL SQ SCH ×3 (06:01→21:00)
[2021-08-08] MEDS: Insulin LISPRO 300 UNITS/3 ML VIAL SUBQ SCH ×4 (08:17→20:59)
[2021-08-08] MEDS: Furosemide 40 MG TABLET PO SCH (08:17)
[2021-08-08] MEDS: BuPROPion XL (24 HR) 150 MG TABLET PO SCH (08:17)
[2021-08-08] MEDS: Budesonide Neb 0.25 MG/2 ML IH SCH ×2 (10:31→20:56)
[2021-08-08 15:02] LABS: Basophils # 0.1 K/mcL (0.0-0.2); Basophils % 0.7 %; Eosinophils # 0.2 K/mcL (0.0-0.6); Eosinophils % 3.2 %; Hematocrit 35.8 % (35.3-44.9); Hemoglobin 11.5 g/dL (11.5-15.4); Immature Granulocytes % 0.1 % (0-4); Lymphocytes # 1.9 K/mcL (0.6-4.6); Lymphocytes % 28.1 %; Mean Corpuscular HGB Conc 32.1 g/dL (31.6-35.5); Mean Corpuscular Hemoglobin 29.6 pg (28.0-33.3); Mean Platelet Volume 9.8 fL (9.4-12.4); Monocytes # 0.8 K/mcL (0.0-1.3); Monocytes % 11.2 %; Neutrophils # 3.8 K/mcL (1.6-8.9); Platelet Count 285 K/mcL (140-400); Red Blood Count 3.89 M/mcL (3.82-4.97); Red Cell Distribution Width 14.7 % (11.5-14.5); Segmented Neutrophils % 56.7 %; White Blood Count 6.8 K/mcL (4.3-11.1)
[2021-08-08 15:12] LABS: Calcium 9.1 mg/dL (8.6-10.3); Phosphorous 3.4 mg/dL (2.7-4.5); Potassium 4.2 mEq/L (3.5-5.1)
[2021-08-09] MEDS: Albuterol 2.5 MG/3 ML NEBULIZER AER SCH ×2 (05:19→11:06)
[2021-08-09] MEDS: *HR* Heparin 5,000 UNIT/ML VIAL SQ SCH (05:22)
[2021-08-09 05:47] LABS: Hematocrit 35.3 % (35.3-44.9); Hemoglobin 11.5 g/dL (11.5-15.4); Mean Corpuscular HGB Conc 32.6 g/dL (31.6-35.5); Mean Corpuscular Hemoglobin 30.4 pg (28.0-33.3); Mean Corpuscular Volume 93.4 fL (83.0-100.0); Mean Platelet Volume 9.7 fL (9.4-12.4); Platelet Count 297 K/mcL (140-400); Red Blood Count 3.78 M/mcL (3.82-4.97); Red Cell Distribution Width 14.6 % (11.5-14.5); White Blood Count 7.1 K/mcL (4.3-11.1)
[2021-08-09 06:02] LABS: Potassium 4.1 mEq/L (3.5-5.1)
[2021-08-09 07:05] VITALS: PULSE 73
[2021-08-09] MEDS: Furosemide 40 MG TABLET PO SCH (08:07)
[2021-08-09] MEDS: BuPROPion XL (24 HR) 150 MG TABLET PO SCH (08:07)
[2021-08-09] MEDS: Insulin LISPRO 300 UNITS/3 ML VIAL SUBQ SCH (08:34)
[2021-08-09] MEDS: Budesonide Neb 0.25 MG/2 ML IH SCH (11:06)
[2021-08-09 11:22] VITALS: BP 104/55; TEMP 97.8; O2SAT 98
== END 2021-08-09 13:30 | disposition home health service (06) | DRG 291 ==
LOC: 3BNU 17:50 → EMEROOARM 17:50 → SUATTDRO 08-06 00:12 → 3BNU 08-06 00:31
PROVIDERS: ADMIT Family Medicine; ATTEND Family Medicine

== ENCOUNTER 2022-01-07 03:20 | Inpatient (IN) ==
[2022-01-07] MEDS ORDERED: Isovue-370 500 ML BOTTLE IVP ONE (03:28)
[2022-01-07] MEDS ORDERED: 0.9 % Sodium Chloride 1,000 ML IV ONE ×3 (03:36→19:10)
[2022-01-07] MEDS ORDERED: *HR* LORazepam 2 MG/ML VIAL IVP ONE (03:37)
[2022-01-07 04:37] LABS: Basophils % 0.2 %; Eosinophils % 0.1 %; Hematocrit 41.8 % (35.3-44.9); Hemoglobin 13.1 g/dL (11.5-15.4); Immature Granulocytes % 0.5 % (0-4); Lymphocytes # 1.2 K/mcL (0.6-4.6); Lymphocytes % 6.4 %; Mean Corpuscular HGB Conc 31.3 g/dL (31.6-35.5); Mean Corpuscular Hemoglobin 30.8 pg (28.0-33.3); Mean Corpuscular Volume 98.1 fL (83.0-100.0); Mean Platelet Volume 9.1 fL (9.4-12.4); Monocytes # 0.5 K/mcL (0.0-1.3); Monocytes % 2.6 %; Neutrophils # 17.5 K/mcL (1.6-8.9); Nucleated Red Blood Cells 0.1 /100 WBC (0); Platelet Count 384 K/mcL (140-400); Red Blood Count 4.26 M/mcL (3.82-4.97); Red Cell Distribution Width 13.6 % (11.5-14.5); Segmented Neutrophils % 90.2 %; White Blood Count 19.4 K/mcL (4.3-11.1)
[2022-01-07 04:57] LABS: Albumin 4.1 g/dL (3.5-5.7); Albumin/Globulin Ratio 1.4 (1.1-2.2); Bilirubin,Direct 0.2 mg/dL (0.0-0.2); Bilirubin,Indirect 0.4 mg/dL (0.0-1.0); Bilirubin,Total 0.6 mg/dL (0.3-1.0); Calcium 11.1 mg/dL (8.6-10.3); Globulin 2.9 g/dL (2.4-3.5); Potassium 4.9 mEq/L (3.5-5.1)
[2022-01-07] MEDS ORDERED: 0.9 % Sodium Chloride 1,000 ML IVC ONE (04:59)
[2022-01-07] MEDS ORDERED: Morphine Sulfate 2 MG/ML SYRINGE IVP ONE (06:47)
[2022-01-07] MEDS ORDERED: Piperacillin/Tazobactam 3.375 GM in 0.9 % Sodium Chloride Mini Bag 100 ML IVPB ONE (07:10)
[2022-01-07] MEDS ORDERED: Ondansetron 4 MG/2 ML VIAL IVP PRN (08:01)
[2022-01-07] MEDS ORDERED: Naloxone 0.4 MG/ML INJ IVP PRN (08:01)
[2022-01-07] MEDS ORDERED: Melatonin 3 MG TABLET PO PRN (08:01)
[2022-01-07] MEDS ORDERED: Dextrose Gel 15 GM/37.5 ML TUBE PO PRN ×2 (08:30)
[2022-01-07] MEDS ORDERED: D5% in Water 1,000 ML IVC PRN (08:30)
[2022-01-07 08:46] LABS: Bilirubin,Urine Small (Negative); Blood,Urine Trace (Negative); Clarity,Urine Turbid (Clear); Color,Urine Dark-Yellow (Yellow); Glucose,Urine (UA) Normal (Normal); Hyaline Casts,Urine Few per lpf (None Seen); Ketones,Urine Trace mg/dL (Negative); Leukocyte Esterase,Urine Trace (Negative); Mucus,Urine Few per lpf (None-Few); Nitrite,Urine Negative (Negative); PH,Urine 5.5 pH Units (5.0-8.0); Protein,Urine 70 mg/dL (Neg-Trace); Specific Gravity,Urine 1.029 (1.010-1.025); Squamous Epithelial Cell,Urine Few per hpf (None-Few)
[2022-01-07] MEDS: 0.9 % Sodium Chloride 1,000 ML IVC SCH (10:09)
[2022-01-07] MEDS ORDERED: Ketorolac 30 MG/ML VIAL IVP PRN (11:13)
[2022-01-07] MEDS ORDERED: Ketorolac 30 MG/ML VIAL IVP SCH (12:00)
[2022-01-07] MEDS: Insulin LISPRO 300 UNITS/3 ML VIAL SUBQ SCH ×2 (12:45→17:37)
[2022-01-07] MEDS: *HR* Heparin 5,000 UNIT/ML VIAL SQ SCH ×2 (12:46→22:01)
[2022-01-07] MEDS: Acetaminophen IV 1,000 MG/100 ML BAG IVPB SCH ×2 (12:46→17:40)
[2022-01-07 18:48] LABS: VBG Ionized Calcium 1.23 mmol/L (1.15-1.35)
[2022-01-07] MEDS ORDERED: Ipratropium/Albuterol Neb 3 ML IH PRN (19:11)
[2022-01-07] MEDS ORDERED: Piperacillin/Tazobactam 3.375 GM in 0.9 % Sodium Chloride Mini Bag 100 ML IVPB SCH (21:00)
[2022-01-07] MEDS: Piperacillin/Tazobactam 3.375 GM in 0.9 % Sodium Chloride Mini Bag 100 ML IVPB SCH (22:01)
[2022-01-08] MEDS: Insulin LISPRO 300 UNITS/3 ML VIAL SUBQ SCH ×4 (02:19→17:33)
[2022-01-08] MEDS: Acetaminophen IV 1,000 MG/100 ML BAG IVPB SCH ×4 (02:23→16:34)
[2022-01-08 05:14] LABS: Hematocrit 32.4 % (35.3-44.9); Hemoglobin 9.9 g/dL (11.5-15.4); Mean Corpuscular HGB Conc 30.6 g/dL (31.6-35.5); Mean Corpuscular Hemoglobin 30.7 pg (28.0-33.3); Mean Corpuscular Volume 100.3 fL (83.0-100.0); Mean Platelet Volume 9.6 fL (9.4-12.4); Nucleated Red Blood Cells 0.1 /100 WBC (0); Platelet Count 264 K/mcL (140-400); Red Blood Count 3.23 M/mcL (3.82-4.97); White Blood Count 26.2 K/mcL (4.3-11.1)
[2022-01-08] MEDS: *HR* Heparin 5,000 UNIT/ML VIAL SQ SCH ×3 (05:19→22:22)
[2022-01-08 05:31] LABS: Albumin/Globulin Ratio 1.3 (1.1-2.2); Bilirubin,Total 0.4 mg/dL (0.3-1.0); Calcium 8.7 mg/dL (8.6-10.3); Globulin 2.3 g/dL (2.4-3.5); Potassium 5.4 mEq/L (3.5-5.1); Total Protein 5.3 g/dL (6.4-8.9)
[2022-01-08 05:53] LABS: Lymphocytes # 4.2 K/mcL (0.6-4.6); Monocytes # 1.1 K/mcL (0.0-1.3); Platelet Estimate Normal (Normal)
[2022-01-08] MEDS: Piperacillin/Tazobactam 3.375 GM in 0.9 % Sodium Chloride Mini Bag 100 ML IVPB SCH ×2 (08:52→22:22)
[2022-01-08] MEDS: Ringers Solution, Lactated 1,000 ML IVC SCH (16:35)
[2022-01-09] MEDS: Insulin LISPRO 300 UNITS/3 ML VIAL SUBQ SCH ×5 (00:46→23:56)
[2022-01-09] MEDS: Acetaminophen IV 1,000 MG/100 ML BAG IVPB SCH ×3 (00:47→14:16)
[2022-01-09] MEDS: *HR* Dextrose 50 % in Water (Syg) 50 ML SYRINGE IVP PRN ×2 (00:49→05:51)
[2022-01-09 03:28] LABS: Basophils % 0.2 %; Eosinophils # 0.2 K/mcL (0.0-0.6); Eosinophils % 0.8 %; Estimated Average Glucose 143 mg/dl; Hematocrit 28.1 % (35.3-44.9); Hemoglobin 9.3 g/dL (11.5-15.4); Hemoglobin A1C 6.6 %; Immature Granulocytes % 1.1 % (0-4); Lymphocytes # 2.3 K/mcL (0.6-4.6); Lymphocytes % 11.2 %; Mean Corpuscular HGB Conc 33.1 g/dL (31.6-35.5); Mean Corpuscular Hemoglobin 31.7 pg (28.0-33.3); Mean Corpuscular Volume 95.9 fL (83.0-100.0); Mean Platelet Volume 9.4 fL (9.4-12.4); Monocytes # 0.7 K/mcL (0.0-1.3); Monocytes % 3.5 %; Neutrophils # 16.7 K/mcL (1.6-8.9); Platelet Count 258 K/mcL (140-400); Red Blood Count 2.93 M/mcL (3.82-4.97); Red Cell Distribution Width 13.8 % (11.5-14.5); Segmented Neutrophils % 83.2 %; White Blood Count 20.1 K/mcL (4.3-11.1)
[2022-01-09 03:49] LABS: Calcium 8.2 mg/dL (8.6-10.3); Potassium 3.9 mEq/L (3.5-5.1)
[2022-01-09] MEDS: *HR* Heparin 5,000 UNIT/ML VIAL SQ SCH ×3 (05:50→20:47)
[2022-01-09] MEDS: Ringers Solution, Lactated 1,000 ML IVC SCH ×3 (05:50→21:28)
[2022-01-09] MEDS: 0.9 % Sodium Chloride 1,000 ML IVC SCH (07:21)
[2022-01-09] MEDS ORDERED: Mag Hydrox/Al Hydrox/Simeth 30 ML UDC PO PRN (07:34)
[2022-01-09] MEDS: BuPROPion XL (24 HR) 150 MG TABLET PO SCH (09:16)
[2022-01-09] MEDS: Piperacillin/Tazobactam 3.375 GM in 0.9 % Sodium Chloride Mini Bag 100 ML IVPB SCH ×2 (09:16→20:47)
[2022-01-09] MEDS: Multivit/Ca/Min/Fe/FA 1 TAB TABLET PO SCH (09:16)
[2022-01-09] MEDS: ARIPiprazole 2 MG TABLET PO SCH (09:17)
[2022-01-09] MEDS: FORMOTEROL FUMARATE 20 MCG/2 ML IH SCH ×2 (09:18→23:50)
[2022-01-09] MEDS: Budesonide Neb 0.25 MG/2 ML IH SCH ×2 (11:00→19:40)
[2022-01-09] MEDS ORDERED: Acetaminophen 325 MG TABLET PO PRN (15:50)
[2022-01-09] MEDS ORDERED: *HR* HYDROcodone/Acet 5/325 mg TABLET PO PRN (15:50)
[2022-01-10 03:04] LABS: Basophils % 0.2 %; Eosinophils # 0.2 K/mcL (0.0-0.6); Eosinophils % 1.6 %; Hematocrit 29.6 % (35.3-44.9); Hemoglobin 9.6 g/dL (11.5-15.4); Immature Granulocytes % 0.9 % (0-4); Lymphocytes # 2.2 K/mcL (0.6-4.6); Lymphocytes % 19.2 %; Mean Corpuscular HGB Conc 32.4 g/dL (31.6-35.5); Mean Corpuscular Hemoglobin 31.2 pg (28.0-33.3); Mean Corpuscular Volume 96.1 fL (83.0-100.0); Mean Platelet Volume 9.2 fL (9.4-12.4); Monocytes # 0.6 K/mcL (0.0-1.3); Monocytes % 4.8 %; Neutrophils # 8.6 K/mcL (1.6-8.9); Platelet Count 265 K/mcL (140-400); Red Blood Count 3.08 M/mcL (3.82-4.97); Red Cell Distribution Width 13.8 % (11.5-14.5); Segmented Neutrophils % 73.3 %; White Blood Count 11.7 K/mcL (4.3-11.1)
[2022-01-10 03:19] LABS: Calcium 8.2 mg/dL (8.6-10.3); Potassium 3.7 mEq/L (3.5-5.1)
[2022-01-10] MEDS: Insulin LISPRO 300 UNITS/3 ML VIAL SUBQ SCH ×3 (06:09→18:35)
[2022-01-10] MEDS: *HR* Heparin 5,000 UNIT/ML VIAL SQ SCH ×3 (06:09→21:35)
[2022-01-10] MEDS: Budesonide Neb 0.25 MG/2 ML IH SCH ×2 (08:13→20:38)
[2022-01-10] MEDS: ARIPiprazole 2 MG TABLET PO SCH (09:03)
[2022-01-10] MEDS: Multivit/Ca/Min/Fe/FA 1 TAB TABLET PO SCH (09:03)
[2022-01-10] MEDS: Piperacillin/Tazobactam 3.375 GM in 0.9 % Sodium Chloride Mini Bag 100 ML IVPB SCH (09:04)
[2022-01-10] MEDS: BuPROPion XL (24 HR) 150 MG TABLET PO SCH (09:04)
[2022-01-10] MEDS ORDERED: cefTRIAXone 1,000 MG in 0.9 % Sodium Chloride 10 ML IVP SCH (11:00)
[2022-01-10] MEDS: MetroNIDAZOLE 500 MG/100 ML 500 MG/100 ML BAG IVPB SCH ×2 (12:09→18:37)
[2022-01-10] MEDS: Ringers Solution, Lactated 1,000 ML IVC SCH (15:55)
[2022-01-10] MEDS: FORMOTEROL FUMARATE 20 MCG/2 ML IH SCH ×2 (17:03→20:39)
[2022-01-11] MEDS: Insulin LISPRO 300 UNITS/3 ML VIAL SUBQ SCH ×4 (00:40→17:54)
[2022-01-11 03:13] LABS: Basophils # 0.1 K/mcL (0.0-0.2); Basophils % 0.4 %; Eosinophils # 0.2 K/mcL (0.0-0.6); Eosinophils % 1.7 %; Immature Granulocytes % 2.3 % (0-4); Lymphocytes # 2.7 K/mcL (0.6-4.6); Lymphocytes % 22.7 %; Mean Corpuscular HGB Conc 32.3 g/dL (31.6-35.5); Mean Corpuscular Hemoglobin 30.9 pg (28.0-33.3); Mean Corpuscular Volume 95.7 fL (83.0-100.0); Mean Platelet Volume 9.1 fL (9.4-12.4); Monocytes # 0.8 K/mcL (0.0-1.3); Monocytes % 6.4 %; Neutrophils # 7.9 K/mcL (1.6-8.9); Platelet Count 290 K/mcL (140-400); Red Blood Count 3.24 M/mcL (3.82-4.97); Red Cell Distribution Width 13.6 % (11.5-14.5); Segmented Neutrophils % 66.5 %; White Blood Count 11.9 K/mcL (4.3-11.1)
[2022-01-11] MEDS: MetroNIDAZOLE 500 MG/100 ML 500 MG/100 ML BAG IVPB SCH (03:28)
[2022-01-11 03:33] LABS: Calcium 8.4 mg/dL (8.6-10.3); Potassium 3.8 mEq/L (3.5-5.1)
[2022-01-11] MEDS: *HR* Heparin 5,000 UNIT/ML VIAL SQ SCH ×3 (06:02→22:01)
[2022-01-11] MEDS: ARIPiprazole 2 MG TABLET PO SCH (08:51)
[2022-01-11] MEDS: Multivit/Ca/Min/Fe/FA 1 TAB TABLET PO SCH (08:52)
[2022-01-11] MEDS: Lactobacillus 1 EACH CAP.SPRINK PO SCH ×2 (08:52→22:01)
[2022-01-11] MEDS: metroNIDAZOLE 500 MG TABLET PO SCH ×3 (08:52→22:01)
[2022-01-11] MEDS: BuPROPion XL (24 HR) 150 MG TABLET PO SCH (08:52)
[2022-01-11] MEDS ORDERED: Estradiol [Estrace] 42.5 GM Cream.Appl VG SCH (09:00)
[2022-01-11] MEDS ORDERED: Cefdinir 300 MG CAPSULE PO SCH (09:00)
[2022-01-11] MEDS: Budesonide Neb 0.25 MG/2 ML IH SCH ×2 (09:33→19:51)
[2022-01-11] MEDS: FORMOTEROL FUMARATE 20 MCG/2 ML IH SCH ×2 (09:35→19:52)
[2022-01-12] MEDS: Insulin LISPRO 300 UNITS/3 ML VIAL SUBQ SCH ×3 (00:35→11:24)
[2022-01-12] MEDS: *HR* Heparin 5,000 UNIT/ML VIAL SQ SCH (06:01)
[2022-01-12] MEDS: BuPROPion XL (24 HR) 150 MG TABLET PO SCH (08:56)
[2022-01-12] MEDS: ARIPiprazole 2 MG TABLET PO SCH (08:56)
[2022-01-12] MEDS: Multivit/Ca/Min/Fe/FA 1 TAB TABLET PO SCH (08:56)
[2022-01-12] MEDS: Lactobacillus 1 EACH CAP.SPRINK PO SCH (08:57)
[2022-01-12] MEDS: metroNIDAZOLE 500 MG TABLET PO SCH (08:57)
[2022-01-12] MEDS: Budesonide Neb 0.25 MG/2 ML IH SCH (09:05)
[2022-01-12] MEDS: FORMOTEROL FUMARATE 20 MCG/2 ML IH SCH (09:06)
[2022-01-12 10:43] VITALS: BP 147/89; PULSE 80; TEMP 98.1; O2SAT 96
[2022-01-12 11:56] LABS: Basophils # 0.1 K/mcL (0.0-0.2); Hematocrit 31.6 % (35.3-44.9); Hemoglobin 10.2 g/dL (11.5-15.4); Mean Corpuscular HGB Conc 32.3 g/dL (31.6-35.5); Mean Corpuscular Hemoglobin 30.7 pg (28.0-33.3); Mean Corpuscular Volume 95.2 fL (83.0-100.0); Mean Platelet Volume 8.8 fL (9.4-12.4); Platelet Count 282 K/mcL (140-400); Red Blood Count 3.32 M/mcL (3.82-4.97); Red Cell Distribution Width 13.5 % (11.5-14.5); White Blood Count 9.7 K/mcL (4.3-11.1)
[2022-01-12 12:13] LABS: Calcium 8.2 mg/dL (8.6-10.3); Potassium 3.5 mEq/L (3.5-5.1)
[2022-01-12 13:06] LABS: Eosinophils # 0.3 K/mcL (0.0-0.6); Monocytes # 0.6 K/mcL (0.0-1.3); Neutrophils # 5.6 K/mcL (1.6-8.9); Platelet Estimate Normal (Normal)
[2022-01-12 14:24] LABS: Bacteria,Urine Few per hpf (None-Few); Bilirubin,Urine Negative (Negative); Blood,Urine Small (Negative); Clarity,Urine Turbid (Clear); Color,Urine Yellow (Yellow); Glucose,Urine (UA) Normal (Normal); Ketones,Urine Negative (Negative); Leukocyte Esterase,Urine Trace (Negative); Nitrite,Urine Negative (Negative); PH,Urine 6.5 pH Units (5.0-8.0); Protein,Urine Trace mg/dL (Neg-Trace); RBC,Urine 0-3 per hpf (0-3); Specific Gravity,Urine 1.012 (1.010-1.025); Squamous Epithelial Cell,Urine Few per hpf (None-Few); Urobilinogen,Urine Normal (Normal); WBC,Urine 0-3 per hpf (0-3)
== END 2022-01-12 14:13 | DRG 872 ==
LOC: 2ANU 03:20 → EMEROOARM 03:20 → SUATTDRO 08:01 → 2ANU 09:48
PROVIDERS: ADMIT Hospitalist; ATTEND Internal Medicine

== ENCOUNTER 2022-03-01 22:55 | Inpatient (IN) ==
[2022-03-02 00:02] LABS: Basophils # 0.1 K/mcL (0.0-0.2); Basophils % 0.5 %; Eosinophils # 0.1 K/mcL (0.0-0.6); Eosinophils % 0.8 %; Hematocrit 39.3 % (35.3-44.9); Hemoglobin 12.4 g/dL (11.5-15.4); Immature Granulocytes % 0.3 % (0-4); Lymphocytes # 1.2 K/mcL (0.6-4.6); Lymphocytes % 10.5 %; Mean Corpuscular HGB Conc 31.6 g/dL (31.6-35.5); Mean Corpuscular Hemoglobin 30.8 pg (28.0-33.3); Mean Corpuscular Volume 97.5 fL (83.0-100.0); Mean Platelet Volume 9.7 fL (9.4-12.4); Monocytes # 0.9 K/mcL (0.0-1.3); Monocytes % 8.1 %; Neutrophils # 8.9 K/mcL (1.6-8.9); Platelet Count 306 K/mcL (140-400); Red Blood Count 4.03 M/mcL (3.82-4.97); Red Cell Distribution Width 13.2 % (11.5-14.5); Segmented Neutrophils % 79.8 %; White Blood Count 11.2 K/mcL (4.3-11.1)
[2022-03-02 00:15] LABS: Albumin 4.4 g/dL (3.5-5.7); Albumin/Globulin Ratio 1.5 (1.1-2.2); Bilirubin,Total 0.6 mg/dL (0.3-1.0); Calcium 13.4 mg/dL (8.6-10.3); Magnesium 2.4 mg/dL (1.6-2.6); Potassium 3.8 mEq/L (3.5-5.1); Total Protein 7.4 g/dL (6.4-8.9)
[2022-03-02] MEDS ORDERED: 0.9 % Sodium Chloride 1,000 ML IVC ONE (00:28)
[2022-03-02 00:52] LABS: Bilirubin,Urine Negative (Negative); Blood,Urine Trace (Negative); Clarity,Urine Clear (Clear); Color,Urine Yellow (Yellow); Glucose,Urine (UA) Normal (Normal); Ketones,Urine Negative (Negative); Leukocyte Esterase,Urine Negative (Negative); Mucus,Urine Few per lpf (None-Few); Nitrite,Urine Negative (Negative); PH,Urine 6.5 pH Units (5.0-8.0); Protein,Urine Trace mg/dL (Neg-Trace); Specific Gravity,Urine 1.017 (1.010-1.025); Squamous Epithelial Cell,Urine Few per hpf (None-Few); Urobilinogen,Urine Normal (Normal); WBC,Urine 0-3 per hpf (0-3)
[2022-03-02] MEDS ORDERED: Naloxone 0.4 MG/ML INJ IVP PRN (01:45)
[2022-03-02] MEDS ORDERED: Ondansetron 4 MG/2 ML VIAL IVP PRN (01:45)
[2022-03-02] MEDS ORDERED: Acetaminophen 325 MG TABLET PO PRN (01:45)
[2022-03-02] MEDS ORDERED: 0.9 % Sodium Chloride 1,000 ML IVC SCH (01:45)
[2022-03-02] MEDS ORDERED: *HR* Dextrose 50 % in Water (Syg) 50 ML SYRINGE IVP PRN (02:36)
[2022-03-02] MEDS ORDERED: D5% in Water 1,000 ML IVC PRN (02:36)
[2022-03-02] MEDS ORDERED: Dextrose 4 GM Chewable Tablets PO PRN ×2 (02:36)
[2022-03-02 03:02] LABS: VBG Ionized Calcium 1.44 mmol/L (1.15-1.35)
[2022-03-02 05:25] LABS: Hematocrit 36.1 % (35.3-44.9); Hemoglobin 11.3 g/dL (11.5-15.4); Mean Corpuscular HGB Conc 31.3 g/dL (31.6-35.5); Mean Corpuscular Hemoglobin 30.7 pg (28.0-33.3); Mean Corpuscular Volume 98.1 fL (83.0-100.0); Mean Platelet Volume 10.2 fL (9.4-12.4); Platelet Count 223 K/mcL (140-400); Red Blood Count 3.68 M/mcL (3.82-4.97); Red Cell Distribution Width 13.2 % (11.5-14.5); White Blood Count 9.3 K/mcL (4.3-11.1)
[2022-03-02 06:40] LABS: Potassium 3.6 mEq/L (3.5-5.1)
[2022-03-02 07:32] LABS: Calcium 12.3 mg/dL (8.6-10.3)
[2022-03-02] MEDS: Insulin LISPRO 300 UNITS/3 ML VIAL SUBQ SCH ×3 (08:46→17:16)
[2022-03-03] MEDS ORDERED: *HR* Labetalol 20 MG/4 ML SYRINGE IVP ONE (03:21)
[2022-03-03] MEDS: Insulin LISPRO 300 UNITS/3 ML VIAL SUBQ SCH ×3 (07:32→16:29)
[2022-03-03] MEDS ORDERED: Azelastine 0.1% Nasal Spray 30 ML BOTTLE NS PRN (08:53)
[2022-03-03] MEDS ORDERED: Albuterol 2.5 MG/3 ML NEBULIZER IH PRN (08:53)
[2022-03-03 09:56] LABS: Calcium 11.1 mg/dL (8.6-10.3); Potassium 3.4 mEq/L (3.5-5.1)
[2022-03-03] MEDS: Loratadine 10 MG TABLET PO SCH (09:56)
[2022-03-03] MEDS: Aspirin Enteric Coated 81 MG Tablet PO SCH (09:56)
[2022-03-03] MEDS: BuPROPion XL (24 HR) 150 MG TABLET PO SCH (09:56)
[2022-03-03] MEDS: Multivit/Ca/Min/Fe/FA 1 TAB TABLET PO SCH (09:57)
[2022-03-03] MEDS: ARIPiprazole 2 MG TABLET PO SCH (09:57)
[2022-03-03] MEDS: Budesonide Neb 0.5 MG/2 ML IH SCH ×2 (10:29→20:49)
[2022-03-03] MEDS: amLODIPine 5 MG TABLET PO SCH (13:06)
[2022-03-03] MEDS: Revefenacin [Yupelri] 175 MCG/3 ML Vial.Neb IH SCH (15:18)
[2022-03-04 05:20] LABS: Calcium 11.2 mg/dL (8.6-10.3); Potassium 3.8 mEq/L (3.5-5.1)
[2022-03-04] MEDS: Insulin LISPRO 300 UNITS/3 ML VIAL SUBQ SCH ×3 (07:18→16:08)
[2022-03-04] MEDS: BuPROPion XL (24 HR) 150 MG TABLET PO SCH (07:42)
[2022-03-04] MEDS: Multivit/Ca/Min/Fe/FA 1 TAB TABLET PO SCH (07:43)
[2022-03-04] MEDS: ARIPiprazole 2 MG TABLET PO SCH (07:43)
[2022-03-04] MEDS: Aspirin Enteric Coated 81 MG Tablet PO SCH (07:43)
[2022-03-04] MEDS: Loratadine 10 MG TABLET PO SCH (07:43)
[2022-03-04] MEDS: amLODIPine 5 MG TABLET PO SCH (07:43)
[2022-03-04] MEDS: Budesonide Neb 0.5 MG/2 ML IH SCH ×2 (10:30→21:01)
[2022-03-04] MEDS: Revefenacin [Yupelri] 175 MCG/3 ML Vial.Neb IH SCH (16:13)
[2022-03-05 05:59] LABS: Calcium 11.1 mg/dL (8.6-10.3); Potassium 3.6 mEq/L (3.5-5.1)
[2022-03-05] MEDS: Insulin LISPRO 300 UNITS/3 ML VIAL SUBQ SCH ×3 (07:26→15:50)
[2022-03-05] MEDS: amLODIPine 5 MG TABLET PO SCH (08:22)
[2022-03-05] MEDS: Loratadine 10 MG TABLET PO SCH (08:22)
[2022-03-05] MEDS: BuPROPion XL (24 HR) 150 MG TABLET PO SCH (08:22)
[2022-03-05] MEDS: ARIPiprazole 2 MG TABLET PO SCH (08:22)
[2022-03-05] MEDS: Aspirin Enteric Coated 81 MG Tablet PO SCH (08:22)
[2022-03-05] MEDS: Budesonide Neb 0.5 MG/2 ML IH SCH ×2 (09:45→20:33)
[2022-03-05] MEDS ORDERED: Ipratropium/Albuterol Neb 3 ML IH PRN (13:17)
[2022-03-06] MEDS: Insulin LISPRO 300 UNITS/3 ML VIAL SUBQ SCH ×3 (08:24→16:20)
[2022-03-06] MEDS: BuPROPion XL (24 HR) 150 MG TABLET PO SCH (08:28)
[2022-03-06] MEDS: amLODIPine 5 MG TABLET PO SCH (08:28)
[2022-03-06] MEDS: Loratadine 10 MG TABLET PO SCH (08:28)
[2022-03-06] MEDS: Aspirin Enteric Coated 81 MG Tablet PO SCH (08:28)
[2022-03-06] MEDS: ARIPiprazole 2 MG TABLET PO SCH (08:28)
[2022-03-06] MEDS: Budesonide Neb 0.5 MG/2 ML IH SCH ×2 (09:18→20:33)
[2022-03-07 04:34] VITALS: TEMP 97.8
[2022-03-07] MEDS: Loratadine 10 MG TABLET PO SCH (09:19)
[2022-03-07] MEDS: ARIPiprazole 2 MG TABLET PO SCH (09:19)
[2022-03-07] MEDS: amLODIPine 5 MG TABLET PO SCH (09:19)
[2022-03-07] MEDS: Aspirin Enteric Coated 81 MG Tablet PO SCH (09:19)
[2022-03-07] MEDS: BuPROPion XL (24 HR) 150 MG TABLET PO SCH (09:19)
[2022-03-07] MEDS: Insulin LISPRO 300 UNITS/3 ML VIAL SUBQ SCH (09:20)
[2022-03-07 10:11] LABS: Influenza A PCR Negative (Negative); Influenza B PCR Negative (Negative); Resp. Syncytial Virus PCR Negative (Negative)
[2022-03-07 10:32] LABS: SARS-CoV-2 by PCR (In House) Negative (Negative)
[2022-03-07] MEDS: Budesonide Neb 0.5 MG/2 ML IH SCH (10:32)
[2022-03-07 10:43] VITALS: BP 132/81; PULSE 72; O2SAT 94
== END 2022-03-07 12:30 | DRG 684 ==
LOC: 2ANU 22:55 → EMEROOARM 22:55 → SUATTDRO 03-02 01:53 → 2ANU 03-02 03:33
PROVIDERS: ADMIT Internal Medicine; ATTEND Internal Medicine